=== PATIENT | female | born 1975 | race Two or more races ===

== ENCOUNTER 2025-05-17 08:50 | Inpatient (IN) | payer MEDICAID, OTHER, SELFPAY ==
[~2025-05-17] VITALS: Ht 152.4 cm; Wt 99.2 kg
[2025-05-17] VITALS (32 sets, daily range): BP systolic 104–150; BP diastolic 35–94; PULSE 79–121; RESP 13–27; TEMP 97–101.7; O2SAT 95–99
--- NOTE | 2025-05-17 09:00 | ED.PDOC ---
Altered Mental Status HPI Comments 49 y/o obese F is BIBMaureen from private residence for c/c AMS. Per EMS report, patient was found unresponsive by housemates, early, this morning, following unknown last well known time. Patient was noted to have been unresponsive to verbal or painful stimuli. She was given 2mg and 1mg of Narcan IN and IV, respectively, and placed on 15LPM nonrebreather. Patient vomited 1x after first Narcan dose. Further history is limited, due to patient's current condition and absence of family/auto body repairer fiberglass historians. Time Seen by MD: 08:50 Reviewed Notes: Nurses Notes, Chop Saw Operator Notes, Medications, Allergies Allergies: Coded Allergies: Acetaminophen (Verified Allergy, Unknown, 05/17/25) Codeine (Verified Allergy, Unknown, 05/17/25) Uncoded Allergies: TYLENOL 3 (Allergy, Mild, 04/30/10) Information Source: Patient, Emergency Med Personnel Mode of Arrival: EMS Severity: Moderate Timing: Hours Duration: Since onset Prehospital treatment: 12 Lead EKG, Accucheck, Field Map Editor, Treatment (Narcan) Past Medical History PAST MEDICAL HISTORY: Thyroid Surgical History: Unknown, Unobtainable DIVER TENDER History: Unknown, Unobtainable Family History Family History: Unknown, Unobtainable Social History Smoker: Cigarettes Alcohol: Unknown, Unobtainable Drugs: Unknown, Unobtainable Lives In: Home All Other Systems: Reviewed and Negative (Comprehensive systems review obtained and negative except for what is stated in the HPI.) Physical Exam General Appearance: Severe Distress HEENT: Normal ENT Inspection, Pharynx Normal, TMs Normal Neck: Full Range of Motion, Non-Tender, Normal, Normal Inspection Respiratory: Other (Coarse breath sounds) Cardiovascular: No Edema, No JVD, No Murmur, No Gallop, Normal Peripheral Pulses, Regular Rate/Rhythm Breast Exam: Deferred Gastrointestinal: No Organomegaly, Non Tender, No Pulsatile Mass, Normal Bowel Sounds, Soft Genitalia: Deferred Pelvic: Deferred Rectal: Deferred Extremities: No pedal edema Musculoskeletal : Apperance: Normal Neurologic: Disoriented Cerebellar Function: NOT DONE Reflexes: NOT DONE Skin: Normal Color Peripheral Pulses: 3+ Radial (R), 3+ Radial (L) Lymphatic: No Adenopathy Was a procedure done? Was a procedure done?: Yes Sedation Sedation?: Yes Informed consent obtained: Yes Sedation start time: 08:55 Sedation end time: 09:25 Sedation total time: 20 minutes Central Line Recorder of insertion practice: R Programmer Occupation of shampoo assistant: Attending Physician Indication: Volume resuscitation Room prepared for procedure: Yes R Programmer performed hand hygien: Yes Maximal sterile barrier precau: Mask/Eye shield, Sterile gown, Cap, Sterlie gloves, Large sterlie drape Skin Preparation: Chlorhexidine gluconate, Alcohol Skin preparation completely dr: Yes Insertion site: Right, Internal jugular Central line catheter type: [id number] dialysis Number of lumens: 3 Central line exchanged over a: No Antiseptic ointment applied to: No Post Assessment: Chest X-Ray, Proper placement Informed consent obtained: No Risks/benefits/alt described: No Intubation Indication: Respiratory Insufficiency, Altered Mental Status Prep: Preoxygenation Pretreated with: Analgesia, Sedation Medicated with: Vecuronium Intubation Approach: Orotracheal (8.0) Intubation size: cm (8) Informed consent obtained: No Risks/benefits/alt described: No Differential Diagnosis (ALOC) Differential Diagnosis: Dehydration, Encephalopathy, Hypoxemia, Seizure, Closed Head Injury, CVA, Drug Overdose, ETOH Intoxication X-Ray, Labs, Meds, VS Vital Signs Date Time Temp Pulse Resp B/P (MAP) Pulse Ox O2 Delivery O2 Flow Rate FiO2 05/17/25 12:53 142/88 05/17/25 12:03 164/94 05/17/25 12:00 83 05/17/25 11:22 97 26 95 50 05/17/25 10:15 97.0 108 20 116/35 97 60.0 100 97.0 05/17/25 09:33 115 20 97 100 05/17/25 09:07 116/35 05/17/25 09:06 116/35 05/17/25 08:50 97.0 110 20 113/62 97 97.0 Lab Test 05/17/25 13:10 05/17/25 12:33 05/17/25 11:50 05/17/25 10:41 Range/Units Urine Color Pending Urine Clarity Pending Urine pH Pending Urine Specific Al[place]imer Pending Urine Protein Pending Urine Ketones Pending Urine Blood Pending Urine Nitrite Pending Urine Bilirubin Pending Urine Urobilinogen Pending Urine Leukocyte Esterase Pending Urine RBC Pending Urine Microscopic WBC Pending Urine Squamous Epithelial Cells Pending Urine Bacteria Pending Urine Glucose Pending Urine Opiates Screen Pending Urine Fentanyl Screen Pending Urine Barbiturates Screen Pending Urine Phencyclidine Screen Pending Urine Amphetamines Screen Pending Urine Benzodiazepines Screen Pending Urine Cocaine Screen Pending Urine Cannabinoids Screen Pending Blood Gas Specimen Type Arterial Arterial Blood Gas Sample Site Right radial Right radial Blood Gas Patient Temperature 37.0 37.0 Arterial Blood Date Drawn [id number] Arterial Blood pH 7.240 *L 7.222 *L 7.350-7.450 Arterial Blood Partial Pressure CO2 43.8 60.9 *H 32.0-45.0 mmHg Arterial Blood Partial Pressure O2 79.4 L 191.0 H 83.0-108.0 mmHg Arterial Blood HCO3 18.3 L 24.5 21.0-28.0 mmol/L Arterial Blood Oxygen Saturation 94.4 99.1 H 94.0-98.0 % Arterial Blood Base Excess -8.8 L -4.8 L -2.0-3.0 mmol/L Arterial Blood Oxyhemoglobin 92.9 L 97.7 94.0-98.0 % Arterial Blood Carboxyhemoglobin 0.8 0.3 L 0.5-1.5 % Arterial Blood Methemoglobin 0.8 1.1 0.0-1.5 % Bulmaro Test Modified Modified Blood Gas Total Hemoglobin 18.50 *H 19.40 *H 12.0-16.0 g/dL Blood Gas Set Respiration Rate 26.0 20.0 Blood Gas Modality Vent - ac Vent - ac FiO2 % 50.0 100.0 Blood Gas Tidal Volume 400.0 400.0 Blood Gas PEEP or CPAP 5.0 5.0 Blood Gas Critical Value Read Back Yes yes Blood Gas Notified Whom arnel Garcia Blood Gas Notified Time [id number] Blood Gas Notified By Complaint Inspector rand daley rrt Lactic Acid Level 3.1 *H 0.4-2.0 mmol/L Test 05/17/25 09:34 Range/Units White Blood Count 21.6 H 4.4-10.8 10^3/uL Red Blood Count 5.76 H 4.0-5.20 10^6/uL Hemoglobin 18.2 H 12.2-16.2 g/dL Hematocrit 54.3 H 36.0-46.0 % Mean Corpuscular Volume 94.2 80.0-100.0 fL Mean Corpuscular Hemoglobin 31.5 28.0-32.0 pg Mean Corpuscular Hemoglobin Concent 33.4 32.0-36.0 g/dL Red Cell Distribution Width 13.2 11.8-14.3 % Platelet Count 362 140-450 10^3/uL Mean Platelet Volume 8.5 6.9-10.8 fL Neutrophils (%) (Auto) 87.1 H 37.0-80.0 % Lymphocytes (%) (Auto) 6.8 L 10.0-50.0 % Monocytes (%) (Auto) 5.7 0.0-12.0 % Eosinophils (%) (Auto) 0.1 0.0-7.0 % Basophils (%) (Auto) 0.3 0.0-2.0 % Neutrophils # (Auto) 18.8 H 1.6-8.6 10 ^3/uL Lymphocytes # (Auto) 1.5 0.4-5.4 10 ^3/uL Monocytes # (Auto) 1.2 0-1.3 10 ^3/uL Eosinophils # (Auto) 0 0-0.8 10 ^3/uL Basophils # (Auto) 0.1 0-0.2 10 ^3/uL Nucleated Red Blood Cells 0.2 % Prothrombin Time 11.2 9.3-11.8 sec Prothrombin Time INR 1.06 0.9-1.15 Activated Partial Thromboplast Time 25.4 24.5-34.5 SEC Sodium Level 143 136-145 mmol/L Potassium Level 4.3 3.5-5.1 mmol/L Chloride Level 109 H 98-107 mmol/L Carbon Dioxide Level 24 20-31 mmol/L Anion Gap 10 5-15 Blood Urea Nitrogen 15 9-23 mg/dL Creatinine 1.32 H 0.550-1.02 mg/dL Glomerular Filtration Rate Calc 50 >90 mL/min BUN/Creatinine Ratio 11.4 10.0-20.0 Serum Glucose 244 H 74-106 mg/dL Lactic Acid Level 2.2 *H 0.4-2.0 mmol/L Calcium Level 9.8 8.7-10.4 mg/dL Total Bilirubin 0.5 0.2-1.0 mg/dL Aspartate Amino Transferase (AST) 60 H 13-40 U/L Alanine Aminotransferase (ALT) 75 H 7-40 U/L Alkaline Phosphatase 246 H 46-116 U/L Total Protein 9.0 H 5.7-8.2 g/dL Albumin 5.4 H 3.2-4.8 g/dL Current Medications Medications (Trade) Dose Ordered Sig/Hannah Route Start Time Stop Time Status Last Admin Sodium Chloride 1,000 ml @ 1,000 mls/hr Q1H ONCE IV 05/17/25 09:00 05/17/25 10:00 DC 05/17/25 10:40 Sodium Chloride 1,000 ml @ 150 mls/hr Q6H40M ONCE IV 05/17/25 09:00 05/17/25 15:39 05/17/25 12:41 Flumazenil (Romazicon Injection) 0.2 mg ONCE ONCE IV 05/17/25 09:15 05/17/25 09:16 DC 05/17/25 09:16 Rocuronium Helotes 100 mg ONCE ONCE IV 05/17/25 09:30 05/17/25 09:31 DC 05/17/25 09:06 Etomidate 20 mg ONCE ONCE IV 05/17/25 09:30 05/17/25 09:31 DC 05/17/25 09:06 Midazolam HCl 50 ml @ 1 mls/hr Q24H IV 05/17/25 09:30 05/17/25 12:53 Cefepime HCl 50 ml @ 50 mls/hr ONCE ONCE IV 05/17/25 09:30 05/17/25 10:29 DC 05/17/25 10:40 Clindamycin Phosphate 50 ml @ 50 mls/hr ONCE ONCE IV 05/17/25 10:15 05/17/25 11:14 DC 05/17/25 12:39 Sodium Chloride 1,000 ml @ 1,000 mls/hr Q1H ONCE IV 05/17/25 13:00 05/17/25 13:59 05/17/25 13:03 Patient altered. Was given Narcan in the field. On oxygen. Unable to respond with sternal rub. Had to intubate the patient. Possible aspiration. Was given cefepime. Was given clindamycin. Placed a central line. Was given fluids. Was given fluids. Continue monitoring. Time of 1ST Reevaluation: 09:20 Reevaluation 1ST: Unchanged Patient Education/Counseling: Pt Unresponsive (Patient intubated) Family Education/Counseling: No Family Present SEPSIS Sepsis Screen Physician Orders Urinalysis (05/17/25 08:58) Chest Portable (05/17/25 08:58) Accucheck (05/17/25 08:58) Blood Culture (05/17/25 08:58) Cefepime 1gm/ 50ml (Maxipime 1gm/50ml) (05/17/25 22:00) Notify Md If Map <65 Or Bp<90 (05/17/25 08:58) If Map<65 Start Vasopressor (05/17/25 08:58) Sepsis Reassesment After Fluid (05/17/25 09:58) Sodium Chloride 0.9% (05/17/25 09:00) Head Without Contrast (05/17/25 09:00) Midazolam Drip 50 Mg/50ml (Versed Drip 5 (05/17/25 09:30) Rass Sedation Scale Q1HR (05/17/25 09:23) Communication Order (05/17/25 09:12) Abg W/ Co-Ox (05/17/25 10:30) Respiratory Culture W/ Gs (05/17/25 09:39) Ventilator Orders (05/17/25 09:39) * Urology Consult (05/17/25 10:26) Bladder (05/17/25 10:24) Ventilator Orders (05/17/25 10:46) Ct Ab Pel Wo Con-No Oral Or Iv (05/17/25 11:00) Continous Bladder Irrigation (05/17/25 12:01) [address] Crespo QSHIFT (05/17/25 12:01) Urine Bacterial Culture (05/17/25 12:12) Abg W/ Co-Ox (05/17/25 12:13) Drug Screen (05/17/25 12:27) Propofol (Diprivan) (05/17/25 13:00) Sodium Chloride 0.9% (05/17/25 13:00) Vital Signs Date Time Temp Pulse Resp B/P (MAP) Pulse Ox O2 Delivery O2 Flow Rate FiO2 05/17/25 12:53 142/88 05/17/25 12:03 164/94 05/17/25 12:00 83 05/17/25 11:22 97 26 95 50 05/17/25 10:15 97.0 108 20 116/35 97 60.0 100 97.0 05/17/25 09:33 115 20 97 100 05/17/25 09:07 116/35 05/17/25 09:06 116/35 05/17/25 08:50 97.0 110 20 113/62 97 97.0 Laboratory Tests Test 05/17/25 09:34 05/17/25 11:50 Lactic Acid Level 2.2 mmol/L (0.4-2.0) *H 3.1 mmol/L (0.4-2.0) *H White Blood Count 21.6 10^3/uL (4.4-10.8) H Medications Medications Dose Ordered Sig/Hannah Route Start Time Stop Time Status Last Admin Dose Admin Cefepime HCl 50 ml @ 50 mls/hr ONCE ONCE IV 05/17/25 09:30 05/17/25 10:29 DC 05/17/25 10:40 Clindamycin Phosphate 50 ml @ 50 mls/hr ONCE ONCE IV 05/17/25 10:15 05/17/25 11:14 DC 05/17/25 12:39 Etomidate 20 mg ONCE ONCE IV 05/17/25 09:30 05/17/25 09:31 DC 05/17/25 09:06 Flumazenil 0.2 mg ONCE ONCE IV 05/17/25 09:15 05/17/25 09:16 DC 05/17/25 09:16 Midazolam HCl 50 ml @ 1 mls/hr Q24H IV 05/17/25 09:30 05/17/25 12:53 Rocuronium Helotes 100 mg ONCE ONCE IV 05/17/25 09:30 05/17/25 09:31 DC 05/17/25 09:06 Sodium Chloride 1,000 ml @ 150 mls/hr Q6H40M ONCE IV 05/17/25 09:00 05/17/25 15:39 05/17/25 12:41 Sodium Chloride 1,000 ml @ 1,000 mls/hr Q1H ONCE IV 05/17/25 09:00 05/17/25 10:00 DC 05/17/25 10:40 Sodium Chloride 1,000 ml @ 1,000 mls/hr Q1H ONCE IV 05/17/25 13:00 05/17/25 13:59 05/17/25 13:03 Departure 1 Departure Time of Disposition: 09:05 Impression: Primary Impression: Metabolic encephalopathy Additional Impressions: Pneumonia Qualified Codes: J18.9 - Pneumonia, unspecified organism Sepsis Qualified Codes: A41.9 - Sepsis, unspecified organism Disposition: ADMITTED INPATIENT Admit to: ICU Condition: Guarded Critical Care Note Critical Care Time?: Yes (90 min-critical care time only) Stability Stability form required: No Heart Score Heart Score: Heart Score Response (Comments) Value History N/A 0 EKG N/A 0 Age N/A 0 Risk Factors N/A 0 Troponin N/A 0 Total 0 I personally scribed for BILL HUNTER MD ([email or web address]) on 05/17/25 at 09:00. Electronically submitted by Efe Sanhcez ([email or web address]). I personally scribed for BILL HUNTER MD ([email or web address]) on 05/17/25 at 09:41. Electronically submitted by Efe Sanchez ([email or web address]). BILL HUNTER MD May 17, 2025 09:00
[2025-05-17] MEDS: ROCURONIUM 10MG/ML 10ML VIAL IV ONE (09:06)
[2025-05-17] MEDS: ETOMIDATE (2MG/ML) 20ML VIAL IV ONE (09:06)
[2025-05-17] MEDS: MIDAZOLAM DRIP 50 mg/50mL 50 ML IV SCH (09:07)
[2025-05-17] MEDS: FLUMAZENIL 0.1 MG/ML INJ 10ML MDV IV ONE (09:16)
[2025-05-17 10:04] LABS: Hematocrit 54.3 % (36.0-46.0); Hemoglobin 18.2 g/dL (12.2-16.2); Mean Corpuscular Hemoglobin 31.5 pg (28.0-32.0); Mean Corpuscular Volume 94.2 fL (80.0-100.0); Nucleated Red Blood Cells % 0.2 %
[2025-05-17 10:14] LABS: Anion Gap 10 (5-15); BUN/Creatinine Ratio 11.4 (10.0-20.0); Blood Urea Nitrogen 15 mg/dL (9-23); Calcium 9.8 mg/dL (8.7-10.4); Carbon Dioxide 24 mmol/L (20-31); Potassium 4.3 mmol/L (3.5-5.1); Sodium 143 mmol/L (136-145)
[2025-05-17 10:15] LABS: Alanine Aminotransferase 75 U/L (7-40); Albumin 5.4 g/dL (3.2-4.8); Alkaline Phosphatase 246 U/L (46-116); Bilirubin, Total 0.5 mg/dL (0.2-1.0); Chloride 109 mmol/L (98-107); Glucose 244 mg/dL (74-106); Total Protein 9.0 g/dL (5.7-8.2)
[2025-05-17 10:21] LABS: Lactic Acid w/Reflex 2.2 mmol/L (0.4-2.0)
[2025-05-17 10:23] LABS: INR 1.06 (0.9-1.15); Partial Thromboplastin Time 25.4 SEC (24.5-34.5); Prothrombin Time 11.2 sec (9.3-11.8)
--- NOTE | 2025-05-17 10:28 | DVHNC2 ---
Procedure - Central Line Procedure Note Date and time: 05/17/2025 Indication: Vascular Access Central Line Location: Right Internal Jugular Vein Procedure Transportation Technician: Anel Ren, Resident Attending Physician: Dr. Wheatley Consent: The procedure was performed emergently and the permission was implied because of the emergent nature. Procedure Summary: A time out was performed. My hands were washed immediately prior to the procedure. I wore a surgical cap, mask with protective eyewear, full gown and sterile gloves throughout the procedure. The patient was placed in Trendelenburg position, with head turned 30 degrees away from the insertion site. The Right neck was prepped using chlorhexidine scrub and draped in sterile fashion using a three quarter sheet drape and sterile towels. Skin preparation was allowed to dry prior to skin puncture. Anatomic landmarks were identified. Anesthesia was achieved over the vein using 5] ml of 1% lidocaine. Using real-time ultrasound, with sterile probe cover and sterile gel, the Right Internal Jugular Vein was identified on ultrasound using the linear ultrasound probe in the transverse orientation. The carotid o artery was identified and avoided utilizing color- flow. The Internal Jugular Vein was then placed in the center of the ultrasound field and compressed for patency. The introducer needle was inserted into the vein under direct ultrasound visualization, and a movement artifact was identified as the needle was advanced through the skin toward the vessel. A real-time hyperechoic signal revealed visualization of vascular needle entry into the lumen as blood was noted to flashback in the syringe. The needle was then held in place, the syringe was removed, and the guide wire was advanced through the needle. Direct visualization of the guide wire location within the vein was noted on ultrasound, indicating proper placement. The needle was then removed. A small incision was made at the skin surface with a scalpel, and a skin dilator was advanced over the guide wire. After appropriate dilation was obtained, the dilator was removed, and a triple-lumen catheter was then advanced over the guide wire into proper position. The guide wire was removed and discarded. The ports were aspirated, which showed good blood return, and then carefully flushed with normal saline. The catheter was stabilized and sutured to the skin with 2-0 silk at two anchor points. A sterile op-site was placed over the catheter and biopatch. The patient tolerated the procedure without any hemodynamic compromise. Estimated blood loss: 5 ml Post-procedure chest x-ray: Shows proper positioning of the catheter for use. ANEL REN RESDIENT May 17, 2025 10:28
--- NOTE | 2025-05-17 10:38 | DVH ---
EXAM: XY CHEST PORTABLE Indication: sob Technique: Single frontal view of the chest was obtained Comparison: None FINDINGS: Lines and Tubes: Endotracheal tube projects 2 cm above the hilario. Enteric tube tip projects over exp ected region stomach. Right internal jugular central venous catheter tip projects over superior vena cava. Lungs: No focal consolidation. Pleura: No effusion. No pneumothorax. Cardiomediastinal contours: Unremarkable Bones: No acute osseous abnormality. IMPRESSION: Lines and tubes in appropriate position.
[2025-05-17] MEDS: SODIUM CHLORIDE 0.9% 1,000 ML IV ONE ×4 (10:40→17:45)
[2025-05-17] MEDS: CEFEPIME 1GM/50ML 50 ML IV ONE (10:40)
--- NOTE | 2025-05-17 11:05 | DVH ---
Exam: US BLADDER History: bladderforpositionofbladder Comparison: None Date: 05/17/2025 10:41 AM Technique: Grayscale and color Doppler ultrasound of the pelvis was obtained. Pre-and postvoid images of the bladder were obtained. Findings: Crespo catheter appears within the bladder IMPRESSION: Crespo catheter noted within the bladder END IMPRESSION:
--- NOTE | 2025-05-17 11:37 | DVH ---
EXAM: CT HEAD WITHOUT CONTRAST INDICATION: altered TECHNIQUE: CT of the head without intravenous contrast. Coronal and sagittal reformatted images are s ubmitted. Radiation Dose : 1. Head: CT Dose: CTDI volume is 53.48 mGy. Dose-length product is 966.11 mGy*cm The dose indicators for CT are the volume Computed Tomography (CT) Dose Index (CTDIvol) and the Dose Length Product (DLP), and are measured in units of mGy and mGy-cm, respectively. These indicators are not patient dose, but values generated from the CT scanner acquisition factors. The report includes radiation exposure data for exposures received during this examination. All CT scans at this medical facility are performed using dose modulation techniques as appropriate to a performed exam including the following: Automated exposure control was utilized; adjustment of the MA and/or KV according to patient size; and use of iterative reconstruction technique. COMPARISON: None FINDINGS: There is no evidence of acute intracranial hemorrhage, extra-axial collection, mass effect, midline s hift, herniation or hydrocephalus. The ventricles, sulci and cisterns are age appropriate. The waite-white differentiation is intact. Mastoid air cells are clear. Mucosal thickening in the right maxillary sinus. No depressed calvarial fracture. The surrounding soft tissues are unremarkable. IMPRESSION: 1. No evidence of acute intracranial abnormality.
[2025-05-17 12:01] LABS: Base Excess -4.8 mmol/L (-2.0-3.0)
--- NOTE | 2025-05-17 12:12 | DVHINCON2 ---
Date of service: May 17, 2025 Referring Physician ER Reason for Consultation Gross hematuria History of Present Illness 49 y/o obese F is BIBA from private residence for c/c AMS. She is intubated. Crespo placed with lexie bloody urine reported. CT scan shows nonobstructive left renal stone. Per EMS report, patient was found unresponsive by housemates, early, this morning, following unknown last well known time. Patient was noted to have been unresponsive to verbal or painful stimuli. She was given 2mg and 1mg of Narcan IN and IV, respectively, and placed on 15LPM nonrebreather. Patient vomited 1x after first Narcan dose. Further history is limited, due to patient's current condition and absence of family/gas welder historians. Reviewed Notes: Nurses Notes, Family Law Legal Assistant Notes, Medications, Allergies Allergies: Coded Allergies: Acetaminophen (Verified Allergy, Unknown, 05/17/25) Codeine (Verified Allergy, Unknown, 05/17/25) Uncoded Allergies: TYLENOL 3 (Allergy, Mild, 04/30/10) Information Source: Patient, Emergency Med Personnel Mode of Arrival: EMS Severity: Moderate Timing: Hours Duration: Since onset Prehospital treatment: 12 Lead EKG, Accucheck, Float Builder, Treatment (Narcan) Past Medical History Thyroid Social History Smoker: Cigarettes Alcohol: Unknown, Unobtainable Drugs: Unknown, Unobtainable Lives In: Home Allergies: Coded Allergies: Acetaminophen (Verified Allergy, Unknown, 05/17/25) Codeine (Verified Allergy, Unknown, 05/17/25) Uncoded Allergies: TYLENOL 3 (Allergy, Mild, 04/30/10) Current Medications Current Medications Medications (Trade) Dose Ordered Sig/Hannah Route PRN Reason Start Time Stop Time Status Last Admin Cefepime HCl 50 ml @ 12.5 mls/hr Q12HR IV 05/17/25 22:00 Midazolam HCl 50 ml @ 1 mls/hr Q24H IV 05/17/25 09:30 05/17/25 09:07 Review of Systems All Other Systems: Reviewed and Negative (Comprehensive systems review obtained and negative except for what is stated in the HPI.) Vital Signs Vital Signs Date Time Temp Pulse Resp B/P (MAP) Pulse Ox O2 Delivery O2 Flow Rate FiO2 05/17/25 11:22 97 26 95 50 05/17/25 10:15 97.0 60.0 97.0 Physical Exam General Appearance: Intubated HEENT: Normal ENT Inspection, Pharynx Normal, TMs Normal Neck: Full Range of Motion, Non-Tender, Normal, Normal Inspection Respiratory: Other (Coarse breath sounds) Cardiovascular: No Edema, No JVD, No Murmur, No Gallop, Normal Peripheral Pulses, Regular Rate/Rhythm Breast Exam: Deferred Gastrointestinal: No Organomegaly, Non Tender, No Pulsatile Mass, Normal Bowel Sounds, Soft Genitalia: Crespo in place with hematuria Pelvic: Deferred Rectal: Deferred Extremities: No pedal edema Musculoskeletal : Apperance: Normal Neurologic: Disoriented Cerebellar Function: NOT DONE Reflexes: NOT DONE Skin: Normal Color Peripheral Pulses: 3+ Radial (R), 3+ Radial (L) Lymphatic: No Adenopathy Labs/Diagnostic Data Labs Test 05/17/25 11:50 05/17/25 10:41 05/17/25 09:34 Range/Units Blood Gas Specimen Type Arterial Blood Gas Sample Site Right radial Blood Gas Patient Temperature 37.0 Arterial Blood Date Drawn [id number] Arterial Blood pH 7.222 *L 7.350-7.450 Arterial Blood Partial Pressure CO2 60.9 *H 32.0-45.0 mmHg Arterial Blood Partial Pressure O2 191.0 H 83.0-108.0 mmHg Arterial Blood HCO3 24.5 21.0-28.0 mmol/L Arterial Blood Oxygen Saturation 99.1 H 94.0-98.0 % Arterial Blood Base Excess -4.8 L -2.0-3.0 mmol/L Arterial Blood Oxyhemoglobin 97.7 94.0-98.0 % Arterial Blood Carboxyhemoglobin 0.3 L 0.5-1.5 % Arterial Blood Methemoglobin 1.1 0.0-1.5 % Bulmaro Test Modified Blood Gas Total Hemoglobin 19.40 *H 12.0-16.0 g/dL Blood Gas Set Respiration Rate 20.0 Blood Gas Modality Vent - ac FiO2 % 100.0 Blood Gas Tidal Volume 400.0 Blood Gas PEEP or CPAP 5.0 Blood Gas Critical Value Read Back yes Blood Gas Notified Whom Blood Gas Notified Time [id number] Blood Gas Notified By tool honing machine set up operator andrae White Blood Count 21.6 H 4.4-10.8 10^3/uL Red Blood Count 5.76 H 4.0-5.20 10^6/uL Hemoglobin 18.2 H 12.2-16.2 g/dL Hematocrit 54.3 H 36.0-46.0 % Mean Corpuscular Volume 94.2 80.0-100.0 fL Mean Corpuscular Hemoglobin 31.5 28.0-32.0 pg Mean Corpuscular Hemoglobin Concent 33.4 32.0-36.0 g/dL Red Cell Distribution Width 13.2 11.8-14.3 % Platelet Count 362 140-450 10^3/uL Mean Platelet Volume 8.5 6.9-10.8 fL Neutrophils (%) (Auto) 87.1 H 37.0-80.0 % Lymphocytes (%) (Auto) 6.8 L 10.0-50.0 % Monocytes (%) (Auto) 5.7 0.0-12.0 % Eosinophils (%) (Auto) 0.1 0.0-7.0 % Basophils (%) (Auto) 0.3 0.0-2.0 % Neutrophils # (Auto) 18.8 H 1.6-8.6 10 ^3/uL Lymphocytes # (Auto) 1.5 0.4-5.4 10 ^3/uL Monocytes # (Auto) 1.2 0-1.3 10 ^3/uL Eosinophils # (Auto) 0 0-0.8 10 ^3/uL Basophils # (Auto) 0.1 0-0.2 10 ^3/uL Nucleated Red Blood Cells 0.2 % Prothrombin Time 11.2 9.3-11.8 sec Prothrombin Time INR 1.06 0.9-1.15 Activated Partial Thromboplast Time 25.4 24.5-34.5 SEC Sodium Level 143 136-145 mmol/L Potassium Level 4.3 3.5-5.1 mmol/L Chloride Level 109 H 98-107 mmol/L Carbon Dioxide Level 24 20-31 mmol/L Anion Gap 10 5-15 Blood Urea Nitrogen 15 9-23 mg/dL Creatinine 1.32 H 0.550-1.02 mg/dL Glomerular Filtration Rate Calc 50 >90 mL/min BUN/Creatinine Ratio 11.4 10.0-20.0 Serum Glucose 244 H 74-106 mg/dL Calcium Level 9.8 8.7-10.4 mg/dL Total Bilirubin 0.5 0.2-1.0 mg/dL Aspartate Amino Transferase (AST) 60 H 13-40 U/L Alanine Aminotransferase (ALT) 75 H 7-40 U/L Alkaline Phosphatase 246 H 46-116 U/L Total Protein 9.0 H 5.7-8.2 g/dL Albumin 5.4 H 3.2-4.8 g/dL Assessment Gross hematuria Left renal stone, nonobstructing Plan/Recommendation [address] Crespo for CBI Plan discussed with: Other (Spoke with Dr. Wheatley) JARAD BELTRAN MD May 17, 2025 12:12
--- NOTE | 2025-05-17 12:19 | DVH ---
EXAM: CT CT AB PEL WO CON-NO ORAL OR IV INDICATION: hematuria TECHNIQUE: Volumetric multidetector CT images of the abdomen and pelvis were obtained without contras t. All CT scans at this facility use dose modulation, iterative reconstruction, and/or weight based d osing when appropriate to reduce radiation dose to as low as reasonably achievable. COMPARISON: None FINDINGS: [LOWER CHEST]: 3 consolidation versus complete collapse of the left lower lobe. Centrilobular incons picuous pulmonary nodules in the lingula. [LIVER]: Question inconspicuous hepatic steatosis [GALLBLADDER AND BILIARY TREE]: Gallbladder is decompressed. [SPLEEN]: Unremarkable. [PANCREAS]: Unremarkable. [ADRENAL GLANDS]: Unremarkable [KIDNEYS]: No hydronephrosis. Curvilinear calcification of the left renal calices. [BLADDER]: Crespo catheter in place. Inflammatory stranding along the anterior superior margin of the bladder. [REPRODUCTIVE ORGANS]: Unremarkable. [BOWEL/MESENTERY]: Nasogastric tube in place. No CT evidence of bowel obstruction. Normal appendix. S uspected wire versus tubing in the lower rectum. [ASCITES]: Absent [LYMPHADENOPATHY]: No pathologically enlarged lymph nodes by CT size criteria [VASCULATURE]: No aneurysmal dilatation. [ABDOMINAL WALL]: Unremarkable. [MUSCULOSKELETAL]: No acute fracture or aggressive focal osseous lesion. IMPRESSION: 1. No hydronephrosis. Nonobstructive curvilinear left renal caliceal stone. 2. Crespo catheter decompression of the bladder with anterior superior extraperitoneal inflammatory st randing of indeterminate significance. 3. Collapse/consolidation of the left lower lobe with the adjacent lingular pulmonary nodules correla te for infection.
[2025-05-17] MEDS: CLINDAMYCIN 300MG IV 50 ML IV ONE (12:39)
[2025-05-17 12:41] LABS: Base Excess -8.8 mmol/L (-2.0-3.0)
[2025-05-17 13:51] LABS: Urine Protein, UAD 2+ (Negative)
[2025-05-17] MEDS: PROPOFOL 100 ML IV SCH (14:08)
[2025-05-17 14:23] LABS: Amphetamine Screen, Urine Pos (NEGATIVE); Barbiturate Scree,Urine Neg (NEGATIVE); Benzodiazephine Screen, Urine Pos (NEGATIVE); Cannabinoid Screen, Urine Neg (NEGATIVE); Cocaine Screen, Urine Neg (NEGATIVE); Opiate Scree,Urine Neg (NEGATIVE); Phencyclidine Screen, Urine Neg (NEGATIVE)
[2025-05-17] MEDS: ACETAMINOPHEN IV 1000 MG/100ML (10MG/ML) IV ONE (14:57)
[2025-05-17] MEDS: IBUPROFEN 800 MG TAB PO ONE (15:19)
[2025-05-17] MEDS ORDERED: NITROGLYCERIN 0.4 MG SL TAB SL PRN (15:30)
[2025-05-17] MEDS ORDERED: MORPHINE SULFATE INJ 2 MG/ml SYRG IV PRN (15:30)
[2025-05-17] MEDS ORDERED: ONDANSETRON HCL 4 MG/2 ML VIAL IV PRN (15:30)
--- NOTE | 2025-05-17 16:04 | DVHHP2 ---
History of Present Illness Reason for Visit: ALOC History of Present Illness Meryl Johnson is a 49-year-old female with unclear plast medical history, who was brought to the hospital by EMS after being found down. Patient was found unresponsive by roommates, with an unknown amount of down time. She was given Narcan by EMS with no response. On arrival to ER she was not responsive to verbal or painful stimuli. Patient was intubated shortly after arrival. A Crespo catheter was placed by ER and gross blood drained. Urology was consulted and CBI was initiated. Endocrine: Diabetes Past Surgical History unable to obtain Past Social History unable to obtain Review of Systems Review of Systems unable to obtain, patient intubated and sedated Allergies: Coded Allergies: Acetaminophen (Verified Allergy, Unknown, 05/17/25) Codeine (Verified Allergy, Unknown, 05/17/25) Uncoded Allergies: TYLENOL 3 (Allergy, Mild, 04/30/10) Medications Current Medications Medications Dose Ordered Sig/Hannah Route Start Time Stop Time Status Last Admin Dose Admin Cefepime HCl 50 ml @ 12.5 mls/hr Q12HR IV 05/17/25 22:00 Midazolam HCl 50 ml @ 1 mls/hr Q24H IV 05/17/25 09:30 05/17/25 12:53 6 MLS/HR Propofol 100 ml @ 2.319 mls/ hr Q24H IV 05/17/25 13:00 05/17/25 14:08 2.319 MLS/HR Ondansetron HCl 4 mg Q4HP PRN IV 05/17/25 15:30 UNV Docusate Sodium 100 mg BIDPRN PRN PO 05/17/25 15:30 UNV Nitroglycerin 0.4 mg Q5MINP PRN SL 05/17/25 15:30 UNV Morphine Sulfate 2 mg Q30M PRN IV 05/17/25 15:30 UNV Exam Vital Signs Vital Signs Date Time Temp Pulse Resp B/P (MAP) Pulse Ox O2 Delivery O2 Flow Rate FiO2 05/17/25 15:19 102.4 05/17/25 14:27 121 29 95 40 05/17/25 10:15 60.0 05/17/25 09:30 Mechanical Ventilator+ General Appearance: Other (Intubated and sedated, febrile) HEENT: Atraumatic, PERRLA, Other (Mucous membr dry) Cardiovascular: Normal S1, Normal S2, Other (ST) Abdominal: Normal bowel sounds, Soft Extremities: No clubbing, No cyanosis, No edema, Normal pulses Skin: No rashes, No breakdown, No significant lesion Neuro: Other (Intubated and sedated) Labs/Xrays Labs Test 05/17/25 13:10 05/17/25 12:33 05/17/25 11:50 05/17/25 09:37 Range/Units Urine Color Red H Yellow Urine Clarity Ex.turbid Clear Urine pH 6.0 5.0-9.0 Urine Specific Woodman 1.015 1.001-1.035 Urine Protein 2+ H Negative Urine Ketones Negative Negative Urine Blood 3+ H Negative /uL Urine Nitrite Negative Negative Urine Bilirubin Negative Negative Urine Urobilinogen Normal Negative mg/dL Urine Leukocyte Esterase 3+ Negative /uL Urine RBC 58409 0 - 4 /hpf Urine Microscopic WBC 1039 H 0-5 /HPF Urine Squamous Epithelial Cells None seen <5 /hpf Urine Bacteria None seen None Seen /hpf Urine Mucus Few None Seen Urine Glucose 1+ H Normal mg/dL Urine Opiates Screen Neg NEGATIVE Urine Fentanyl Screen Neg NEGATIVE Urine Barbiturates Screen Neg NEGATIVE Urine Phencyclidine Screen Neg NEGATIVE Urine Amphetamines Screen Pos NEGATIVE Urine Benzodiazepines Screen Pos NEGATIVE Urine Cocaine Screen Neg NEGATIVE Urine Cannabinoids Screen Neg NEGATIVE Blood Gas Specimen Type Arterial Blood Gas Sample Site Right radial Blood Gas Patient Temperature 37.0 Arterial Blood Date Drawn [id number] Arterial Blood pH 7.240 *L 7.350-7.450 Arterial Blood Partial Pressure CO2 43.8 32.0-45.0 mmHg Arterial Blood Partial Pressure O2 79.4 L 83.0-108.0 mmHg Arterial Blood HCO3 18.3 L 21.0-28.0 mmol/L Arterial Blood Oxygen Saturation 94.4 94.0-98.0 % Arterial Blood Base Excess -8.8 L -2.0-3.0 mmol/L Arterial Blood Oxyhemoglobin 92.9 L 94.0-98.0 % Arterial Blood Carboxyhemoglobin 0.8 0.5-1.5 % Arterial Blood Methemoglobin 0.8 0.0-1.5 % Bulmaro Test Modified Blood Gas Total Hemoglobin 18.50 *H 12.0-16.0 g/dL Blood Gas Set Respiration Rate 26.0 Blood Gas Modality Vent - ac FiO2 % 50.0 Blood Gas Tidal Volume 400.0 Blood Gas PEEP or CPAP 5.0 Blood Gas Critical Value Read Back Yes Blood Gas Notified Whom arnel Garcia Blood Gas Notified Time [id number] Blood Gas Notified By Molecular Geneticist rand daley Lactic Acid Level 3.1 *H 0.4-2.0 mmol/L Creatine Kinase 795 H 34-145 U/L Test 05/17/25 09:34 Range/Units White Blood Count 21.6 H 4.4-10.8 10^3/uL Red Blood Count 5.76 H 4.0-5.20 10^6/uL Hemoglobin 18.2 H 12.2-16.2 g/dL Hematocrit 54.3 H 36.0-46.0 % Mean Corpuscular Volume 94.2 80.0-100.0 fL Mean Corpuscular Hemoglobin 31.5 28.0-32.0 pg Mean Corpuscular Hemoglobin Concent 33.4 32.0-36.0 g/dL Red Cell Distribution Width 13.2 11.8-14.3 % Platelet Count 362 140-450 10^3/uL Mean Platelet Volume 8.5 6.9-10.8 fL Neutrophils (%) (Auto) 87.1 H 37.0-80.0 % Lymphocytes (%) (Auto) 6.8 L 10.0-50.0 % Monocytes (%) (Auto) 5.7 0.0-12.0 % Eosinophils (%) (Auto) 0.1 0.0-7.0 % Basophils (%) (Auto) 0.3 0.0-2.0 % Neutrophils # (Auto) 18.8 H 1.6-8.6 10 ^3/uL Lymphocytes # (Auto) 1.5 0.4-5.4 10 ^3/uL Monocytes # (Auto) 1.2 0-1.3 10 ^3/uL Eosinophils # (Auto) 0 0-0.8 10 ^3/uL Basophils # (Auto) 0.1 0-0.2 10 ^3/uL Nucleated Red Blood Cells 0.2 % Prothrombin Time 11.2 9.3-11.8 sec Prothrombin Time INR 1.06 0.9-1.15 Activated Partial Thromboplast Time 25.4 24.5-34.5 SEC Sodium Level 143 136-145 mmol/L Potassium Level 4.3 3.5-5.1 mmol/L Chloride Level 109 H 98-107 mmol/L Carbon Dioxide Level 24 20-31 mmol/L Anion Gap 10 5-15 Blood Urea Nitrogen 15 9-23 mg/dL Creatinine 1.32 H 0.550-1.02 mg/dL Glomerular Filtration Rate Calc 50 >90 mL/min BUN/Creatinine Ratio 11.4 10.0-20.0 Serum Glucose 244 H 74-106 mg/dL Calcium Level 9.8 8.7-10.4 mg/dL Total Bilirubin 0.5 0.2-1.0 mg/dL Aspartate Amino Transferase (AST) 60 H 13-40 U/L Alanine Aminotransferase (ALT) 75 H 7-40 U/L Alkaline Phosphatase 246 H 46-116 U/L Total Protein 9.0 H 5.7-8.2 g/dL Albumin 5.4 H 3.2-4.8 g/dL EXAM: XY CHEST PORTABLE FINDINGS: Lines and Tubes: Endotracheal tube projects 2 cm above the hilario. Enteric tube tip projects over expected region stomach. Right internal jugular central venous catheter tip projects over superior vena cava. Lungs: No focal consolidation. Pleura: No effusion. No pneumothorax. Cardiomediastinal contours: Unremarkable Bones: No acute osseous abnormality. IMPRESSION: Lines and tubes in appropriate position. EXAM: CT HEAD WITHOUT CONTRAST FINDINGS: There is no evidence of acute intracranial hemorrhage, extra-axial collection, mass effect, midline shift, herniation or hydrocephalus. The ventricles, sulci and cisterns are age appropriate. The waite-white differentiation is intact. Mastoid air cells are clear. Mucosal thickening in the right maxillary sinus. No depressed calvarial fracture. The surrounding soft tissues are unremarkable. IMPRESSION: 1. No evidence of acute intracranial abnormality. Exam: US BLADDER Findings: Crespo catheter appears within the bladder IMPRESSION: Crespo catheter noted within the bladder EXAM: CT CT AB PEL WO CON-NO ORAL OR IV FINDINGS: [LOWER CHEST]: 3 consolidation versus complete collapse of the left lower lobe. Centrilobular inconspicuous pulmonary nodules in the lingula. [LIVER]: Question inconspicuous hepatic steatosis [GALLBLADDER AND BILIARY TREE]: Gallbladder is decompressed. [SPLEEN]: Unremarkable. [PANCREAS]: Unremarkable. [ADRENAL GLANDS]: Unremarkable [KIDNEYS]: No hydronephrosis. Curvilinear calcification of the left renal calices. [BLADDER]: Crespo catheter in place. Inflammatory stranding along the anterior superior margin of the bladder. [REPRODUCTIVE ORGANS]: Unremarkable. [BOWEL/MESENTERY]: Nasogastric tube in place. No CT evidence of bowel obstruction. Normal appendix. Suspected wire versus tubing in the lower rectum. [ASCITES]: Absent [LYMPHADENOPATHY]: No pathologically enlarged lymph nodes by CT size criteria [VASCULATURE]: No aneurysmal dilatation. [ABDOMINAL WALL]: Unremarkable. [MUSCULOSKELETAL]: No acute fracture or aggressive focal osseous lesion. IMPRESSION: 1. No hydronephrosis. Nonobstructive curvilinear left renal caliceal stone. 2. Crespo catheter decompression of the bladder with anterior superior extraperitoneal inflammatory stranding of indeterminate significance. 3. Collapse/consolidation of the left lower lobe with the adjacent lingular pulmonary nodules correlate for infection. SEPSIS Sepsis Screen Date sepsis recognized/suspect: May 17, 2025 Time Sepsis recognized/suspect: 08 Recent Procedure: No On Antibiotic Therapy: No Respiratory Rate >20: No Heart Rate >90: Yes Temp<36 C (96.8 F) or >38.3 C: No SBP <90 or MAP <65 mmHG: No New Acute Mental Status Change: No Is the patient on CPAP, BIPAP,: No Physician Orders Chest Portable (05/17/25 08:58) Accucheck (05/17/25 08:58) Blood Culture (05/17/25 08:58) Cefepime 1gm/ 50ml (Maxipime 1gm/50ml) (05/17/25 22:00) Notify Md If Map <65 Or Bp<90 (05/17/25 08:58) If Map<65 Start Vasopressor (05/17/25 08:58) Sepsis Reassesment After Fluid (05/17/25 09:58) Head Without Contrast (05/17/25 09:00) Midazolam Drip 50 Mg/50ml (Versed Drip 5 (05/17/25 09:30) Rass Sedation Scale Q1HR (05/17/25 09:23) Communication Order (05/17/25 09:12) Abg W/ Co-Ox (05/17/25 10:30) Respiratory Culture W/ Gs (05/17/25 09:39) Ventilator Orders (05/17/25 09:39) * Urology Consult (05/17/25 10:26) Bladder (05/17/25 10:24) Ventilator Orders (05/17/25 10:46) Ct Ab Pel Wo Con-No Oral Or Iv (05/17/25 11:00) Continous Bladder Irrigation (05/17/25 12:01) [address] Crespo QSHIFT (05/17/25 12:01) Urine Bacterial Culture (05/17/25 12:12) Abg W/ Co-Ox (05/17/25 12:13) Propofol (Diprivan) (05/17/25 13:00) Admit (05/17/25 15:27) Code Status (05/17/25 15:27) Ondansetron Hcl (Zofran) (05/17/25 15:30) Docusate Sodium Capsule (Colace Capsule) (05/17/25 15:30) Complete Blood Count (05/18/25 04:00) Comprehensive Metabolic Panel (05/18/25 04:00) Npo (Nothing By Mouth) Diet (05/17/25 Dinner) Echo 2d Mode Cardiac Dop (05/17/25 15:27) Condition: Critical (05/17/25 15:27) Nitroglycerin Sublingual (Ntrostat Subli (05/17/25 15:30) Morphine Sulfate Injection (05/17/25 15:30) Stat Ekg For Chest Pain (05/17/25 15:27) Notify Md Of Changes From Base (05/17/25 15:27) Steam Shovel Operating Engineer For 24 Hours (05/17/25 15:27) Emergency Dysrhythmia Protocol (05/17/25 15:27) Rhythm Strips Once Every Shift (05/17/25 15:27) Oxygen By Nasal Cannula (05/17/25 15:27) Vital Signs Date Time Temp Pulse Resp B/P (MAP) Pulse Ox O2 Delivery O2 Flow Rate FiO2 05/17/25 15:19 102.4 05/17/25 14:27 121 29 95 40 05/17/25 14:08 140/89 05/17/25 12:53 142/88 05/17/25 12:03 164/94 05/17/25 12:00 83 05/17/25 11:22 97 26 95 50 05/17/25 10:30 101 20 138/89 (105) 98 05/17/25 10:15 97.0 108 20 116/35 97 60.0 100 97.0 05/17/25 10:15 105 20 133/93 (106) 98 05/17/25 10:00 106 21 168/101 (123) 99 05/17/25 09:45 109 20 170/104 (126) 99 05/17/25 09:33 115 20 97 100 05/17/25 09:30 109 21 151/103 (119) 99 05/17/25 09:30 109 21 99 Mechanical Ventilator+ 60 60 05/17/25 09:24 111 21 175/107 (129) 98 05/17/25 09:07 116/35 05/17/25 09:06 116/35 05/17/25 08:50 97.0 110 20 113/62 97 97.0 Laboratory Tests Test 05/17/25 09:34 05/17/25 11:50 Lactic Acid Level 2.2 mmol/L (0.4-2.0) *H 3.1 mmol/L (0.4-2.0) *H White Blood Count 21.6 10^3/uL (4.4-10.8) H Medications Medications Dose Ordered Sig/Hannah Route Start Time Stop Time Status Last Admin Dose Admin Cefepime HCl 50 ml @ 50 mls/hr ONCE ONCE IV 05/17/25 09:30 05/17/25 10:29 DC 05/17/25 10:40 50 MLS/HR Clindamycin Phosphate 50 ml @ 50 mls/hr ONCE ONCE IV 05/17/25 10:15 05/17/25 11:14 DC 05/17/25 12:39 50 MLS/HR Etomidate 20 mg ONCE ONCE IV 05/17/25 09:30 05/17/25 09:31 DC 05/17/25 09:06 20 MG Flumazenil 0.2 mg ONCE ONCE IV 05/17/25 09:15 05/17/25 09:16 DC 05/17/25 09:16 0.2 MG Ibuprofen 800 mg ONCE ONCE PO 05/17/25 15:00 05/17/25 15:01 DC 05/17/25 15:19 800 MG Midazolam HCl 50 ml @ 1 mls/hr Q24H IV 05/17/25 09:30 05/17/25 12:53 6 MLS/HR Propofol 100 ml @ 2.319 mls/ hr Q24H IV 05/17/25 13:00 05/17/25 14:08 2.319 MLS/HR Rocuronium [place] 100 mg ONCE ONCE IV 05/17/25 09:30 05/17/25 09:31 DC 05/17/25 09:06 100 MG Sodium Chloride 1,000 ml @ 150 mls/hr Q6H40M ONCE IV 05/17/25 09:00 05/17/25 15:39 DC 05/17/25 12:41 150 MLS/HR Sodium Chloride 1,000 ml @ 1,000 mls/hr Q1H ONCE IV 05/17/25 09:00 05/17/25 10:00 DC 05/17/25 10:40 1,000 MLS/HR Sodium Chloride 1,000 ml @ 1,000 mls/hr Q1H ONCE IV 05/17/25 13:00 05/17/25 13:59 DC 05/17/25 13:03 1,000 MLS/HR Assessment/Plan Assessment/Plan Assessment: Metabolic encephalopathy, Gross hematuria, Rhabdomyolysis, Lactic acidosis, Hyperglycemia, Diabetes, Plan: Admit to ICU, Urology consult, CBI, IV antibiotics, IV hydration, A1c, TSH, CK, Lactic, CBC, Accu checks Q AC&HS with sliding scale, ABG in am, Versed and propofol for sedation, wean down as tolerated Plan discussed with: Patient My Orders Orders - SUDHAKAR ZELAYA BILINGUAL LEGAL ASSISTANT Procedure Category Date Status Time Admit ADMIT 05/17/25 Transmitted 15:27 Code Status CODE 05/17/25 Transmitted 15:27 Ondansetron Hcl PHA 05/17/25 Logged (Zofran) 15:30 Docusate Sodium PHA 05/17/25 Logged Capsule (Colace 15:30 Complete Blood Count LAB 05/18/25 Verified 04:00 Comprehensive LAB 05/18/25 Verified Metabolic Panel 04:00 Npo (Nothing By DIET 05/17/25 Transmitted Mouth) Diet Dinner Echo 2d Mode Cardiac US 05/17/25 Logged DOP 15:27 Condition: Critical SHAN 05/17/25 In Process 15:27 Nitroglycerin PHA 05/17/25 In Process Sublingual (Ntrostat 15:30 Morphine Sulfate PHA 05/17/25 Logged Injection 15:30 Stat Ekg For Chest [facility] 05/17/25 In Process Pain 15:27 Notify Md Of Changes [facility] 05/17/25 In Process From Base 15:27 Steam Shovel Operating Engineer For [facility] 05/17/25 In Process 24 Hours 15:27 Emergency Dysrhythmia [facility] 05/17/25 In Process Protocol 15:27 Rhythm Strips Once [facility] 05/17/25 In Process Every Shift 15:27 Oxygen By Nasal RT 05/17/25 Transmitted Cannula 15:27 Date of Service: May 17, 2025 Billing Provider: SUDHAKAR ZELAYA Common Visit Codes: [id number] INP/OBS CARE (HIGH) SUDHAKAR ZELAYA May 17, 2025 16:04
[2025-05-17] MEDS: OPTISON 3ml Vial for INJ IV ONE (16:20)
[2025-05-17 16:53] LABS: Hematocrit 52.9 % (36.0-46.0); Hemoglobin 17.6 g/dL (12.2-16.2); Mean Corpuscular Hemoglobin 31.5 pg (28.0-32.0); Mean Corpuscular Volume 95.0 fL (80.0-100.0)
[2025-05-17] MEDS ORDERED: VANCOMYCIN PER PHARMACY 0 MG IV SCH (17:00)
[2025-05-17] MEDS ORDERED: DEXTROSE (50%) 50ML SYRG IV PRN (17:00)
[2025-05-17 17:11] LABS: Total Cells Counted 100.0 (100)
[2025-05-17 17:13] LABS: Lactic Acid w/Reflex 3.0 mmol/L (0.4-2.0)
[2025-05-17] MEDS: VANCOMYCIN 1.5GM/250ML 250 ML IV ONE (17:45)
[2025-05-17] MEDS: SODIUM CHLORIDE 0.9% 1,000 ML IV SCH (18:09)
--- NOTE | 2025-05-17 18:22 | DVHSR ---
APPROVED REPORT EXAM: Two-dimensional and M-mode echocardiogram with Doppler, color Doppler and Optison. Blood Pressure: 140/89 mmHg INDICATION Uncontrolled hypertension RISK FACTORS Height: 5'0", Weight: 170 DIMENSIONS LVDd3.8 (3.8-5.7cm)LA (2D)2.6 (1.9-4.0cm)Aortic Root3.3 (2.0-3.7cm) LVDs2.6 (2.5-4.0cm)LA (MM) (1.9-4.0cm)Aortic Cusp Exc2.0 (1.5-2.0cm) EF (%) 60.0 (55-70%)Rt. Atrium2.9 (1.9-4.0cm)Asc. Aorta cm IVSd0.8 (0.7-1.1cm)RV (D) (1.8-2.4cm) PWd0.8 (0.7-1.1cm) Mitral Valve MitralMitral Stenosis E wave0.54m/sMV Mean GR.mmHg A wave0.87m/sMV Peak GR.mmHg E/A ratio0.62D MVAcm2 DECEL [id number] 1/2 [place] Aortic Valve Aortic ValveAortic Stenosis V10.98m/Bernardo Mean GR.4mmHg V21.32m/Bernardo Peak GR.7mmHg LVOT Diameter2.2 (1.8-2.4cm)Doppler AVA2.82cm2 Other Information Technically limited study due to body habitus. Conclusion Technically difficult study. Difficult acoustic windows. Aortic root enlargement. Left ventricular enlargement of mild degree. Mild left atrial enlargement. Mild mitral annular calcification. The aortic valve appears to be structurally normal. Tricuspid an d pulmonic appear to be structurally normal. Left ventricular function appears to be preserved at 55% with normal RV function. Contrast ECHO conf irms left ventricular function. Dopplers unremarkable. No pericardial effusion masses or vegetations.
[2025-05-17] MEDS: ACCU-CHEK COMFORT CURVE STRIP VI SCH (20:12)
[2025-05-17] MEDS: InsuLIN REG 1unit/0.01ml Soln (100units/ml) SC SCH (20:12)
[2025-05-17] MEDS: CEFEPIME 1GM/50ML 50 ML IV SCH (22:00)
[2025-05-18] VITALS (106 sets, daily range): BP systolic 11–136; BP diastolic 57–80; PULSE 75–100; RESP 11–31; TEMP 97.9–99.8; O2SAT 94–99
[2025-05-18 03:49] LABS: Hematocrit 44.0 % (36.0-46.0); Hemoglobin 14.9 g/dL (12.2-16.2); Mean Corpuscular Hemoglobin 31.9 pg (28.0-32.0); Mean Corpuscular Volume 94.5 fL (80.0-100.0); Nucleated Red Blood Cells % 0.0 %
[2025-05-18 03:56] LABS: Anion Gap 8 (5-15); BUN/Creatinine Ratio 12.8 (10.0-20.0); Blood Urea Nitrogen 11 mg/dL (9-23); Carbon Dioxide 22 mmol/L (20-31); Total Protein 6.4 g/dL (5.7-8.2)
[2025-05-18 03:57] LABS: Albumin 3.6 g/dL (3.2-4.8); Bilirubin, Total 0.6 mg/dL (0.2-1.0)
[2025-05-18 04:15] LABS: Alanine Aminotransferase 74 U/L (7-40); Alkaline Phosphatase 192 U/L (46-116); Calcium 8.0 mg/dL (8.7-10.4); Chloride 115 mmol/L (98-107); Glucose 169 mg/dL (74-106); Potassium 3.3 mmol/L (3.5-5.1); Sodium 145 mmol/L (136-145)
[2025-05-18 04:42] LABS: Creatine Kinase IFCC 848 U/L (34-145)
[2025-05-18] MEDS: POTASSIUM CHL 20MEQ/100ML 100 ML IV ONE (04:56)
--- NOTE | 2025-05-18 05:43 | DVH ---
CHEST RADIOGRAPH Indication: RESP DISTRESS Technique: Single frontal view of the chest was obtained COMPARISON: XY CHEST PORTABLE on DOS: 05/17/25 FINDINGS: Lines and Tubes: Endotracheal tube, enteric catheter and right central venous catheter in satisfactor y position Lungs: Congestion Pleura: No effusion. No pneumothorax. Cardiomediastinal contours: Unremarkable Bones: Unremarkable IMPRESSION: Lines and tubes in satisfactory position. No significant interval change.
[2025-05-18 06:40] LABS: Base Excess -7.2 mmol/L (-2.0-3.0)
[2025-05-18] MEDS: IPRATROPIUM BROM 0.5 MG/2.5ML INH SOL NEB SCH (08:15)
[2025-05-18] MEDS: ALBUTEROL SULF 2.5 MG/0.5ML(0.5%) NEB SOLN NEB SCH (08:15)
[2025-05-18 09:16] LABS: Creatine Kinase IFCC 861.0 U/L (34-145)
[2025-05-18] MEDS: LACTATED RINGER'S 1,000 ML IV SCH (09:30)
[2025-05-18] MEDS: MAGNESIUM SULFATE 1GM/100ML 100 ML IV ONE ×2 (09:45→10:42)
[2025-05-18] MEDS: DOCUSATE SOD 100 MG CAP PO PRN (10:00)
[2025-05-18] MEDS: FOLIC ACID 1 MG in D5W 5% 50 ML INJ SCH (10:00)
[2025-05-18 10:17] LABS: Uric Acid 2.6 mg/dL (3.1-7.8)
[2025-05-18] MEDS: THIAMINE 100mg/ml INJ (200mg/2ml VIAL) IV SCH (10:30)
--- NOTE | 2025-05-18 10:37 | DVHPNRES ---
Progress Note Date Seen: May 18, 2025 Resident Creating Document: LOWELL YOUNGBLOOD RESIDENT Medical Necessity Reason Pt with a Central, PICC or Fol: Yes The following are medically ne: Central Line, Crespo Catheter Subjective Review of Systems This is a 49-year-old female with diabetes mellitus uncontrolled, possible history of drug use, hypertension on amlodipine who was BIBA to the ER as she was found unresponsive at her house, patient received 2 doses of [place] IM and IV, 2 mg and 1 mg followed which he vomited once, on arrival to the ER, pH was 7.22, CO2 60, bicarb 24 and patient was not able to protect her airway therefore she was intubated 05/17 around 9:00 a.m. Patient was febrile at 1:02 a.m. 0.4, white cell 21 with 85% neutrophils, Crespo was placed which past gross hematuria, urology was consulted, recommended continuous bladder irrigation with clear the urine. UA showed 3+ esterase, nitrites were negative, 1039 WBCs. UDS positive for amphetamines and benzodiazepines. CT abdomen completed, showed nonobstructive left renal feel stone, left lower lobe /consolidation. Per nurse, patient had some residual food in her mouth. Patient was started on IV vancomycin and cefepime, cefepime was switched to meropenem 05/18 given the risk of ESBL. Head CT negative Social history: Per son, patient smokes, does not drink anymore, Patient has a son who lives with her grand mom in [place], who talked to the patient for 5 days back. Daughter lives in [place]. Patient currently lives with her boyfriend Koko. Patient seen and examined in 110. On propofol and Versed. AKA is resolving, electrolytes replenish. Cefepime switched to meropenem for ESBL coverage, duo nebs started q.6 hourly. Cultures preliminary negative. Objective vital signs Vital Sign Date Time Temp Pulse Resp B/P (MAP) Pulse Ox O2 Delivery O2 Flow Rate FiO2 05/18/25 09:39 83 26 102/60 (74) 96 30 05/18/25 08:00 Mechanical Ventilator+ 05/18/25 06:45 98.2 208.8 05/17/25 10:15 60.0 Total Intake and Output 05/17/25 05/17/25 05/18/25 15:00 23:00 07:00 Intake Total 2350 ml 2355.380 ml 1184.932 ml Output Total 350 ml 150 ml 1450 ml Balance 2000 ml 2205.380 ml -265.068 ml medications Current Medications Medications Dose Ordered Sig/Hannah Route Start Time Stop Time Status Last Admin Dose Admin Midazolam HCl 50 ml @ 1 mls/hr Q24H IV 05/17/25 09:30 05/18/25 08:13 10 MLS/HR Propofol 100 ml @ 2.319 mls/ hr Q24H IV 05/17/25 13:00 05/18/25 08:14 9.276 MLS/HR Ondansetron HCl 4 mg Q4HP PRN IV 05/17/25 15:30 Docusate Sodium 100 mg BIDPRN PRN PO 05/17/25 15:30 Nitroglycerin 0.4 mg Q5MINP PRN SL 05/17/25 15:30 Vancomycin HCl 0 ml @ 0 mls/hr UD IV 05/17/25 17:00 Diagnostic Test (Pha) 1 strip Q6HR 05/17/25 18:00 05/18/25 06:00 1 STRIP Insulin Human Regular Q6HR SC 05/17/25 18:00 05/18/25 06:00 2 UNITS Dextrose 50 ml UD PRN IV 05/17/25 17:00 Sodium Chloride 1,000 ml @ 150 mls/hr Q6H40M IV 05/17/25 17:30 05/17/25 18:09 150 MLS/HR Ipratropium [place] 0.5 mg Q6HR NEB 05/18/25 08:15 Albuterol 2.5 mg Q6HR NEB 05/18/25 08:15 Thiamine HCl 100 mg DAILY IV 05/18/25 08:30 Folic Acid 1 mg/ Dextrose 50.2 ml @ 200.8 mls/ hr DAILY INJ 05/18/25 08:30 Vancomycin HCl 100 ml @ 100 mls/hr Q12H IV 05/18/25 12:00 UNV Pantoprazole Sodium 40 mg DAILY IV 05/19/25 10:00 Meropenem 50 ml @ 17 mls/hr Q8HR IV 05/18/25 14:00 Examination Obese female patient lying in the bed, intubated and sedated, RASS -4, not responding to commands or pain. Right-sided central venous catheter General: Morbidly obese, low-grade fever, palor, mucosae are moist Cardiovascular: Regular S1 and S2. No murmurs, gallops or rubs. No JVD elevation. 1+ bilateral pitting edema Respiratory: Expiratory wheezing heard on upper lung gleason bilaterally, coarse crackles on the left lateral side. Mechanically ventilated on 30% FiO2. Abdomen: Soft, hypoactive, slightly distended bowel sounds, no rebound tenderness, no organomegaly, no masses Genitourinary: Crespo seen draining dark yellow urine, clearing up MSK/skin: Skin dry and warm Neurological: Pupils are isocoric and reactive. laboratory and microbiology Laboratory Tests 05/18/25 03:00 Test 05/18/25 03:00 Range/Units Serum Glucose 169 H 74-106 mg/dL Microbiology Date/Time Source Procedure Growth Status 05/17/25 09:45 Blood Blood Culture - Preliminary NO GROWTH AFTER 24 HOURS OF INCUBATION. Resulted Labs and/or images reviewed: Labs reviewed by me, Image(s) reviewed by me Problem List/Assessment/Plan Problem List/Assessment/Plan NEURO: Acute metabolic encephalopathy secondary to sepsis and drug intoxication/seizure/stroke Possible drug intoxication Benzo and meth use dependence UDS positive for benzodiazepines and methamphetamine CT head negative Ammonia pending CARDIOVASCULAR: Sepsis likely Gram-positive and Gram-negative pneumonia and UTI Lactic acidosis HTN Blood pressure currently adequately controlled without antihypertensives IV vancomycin 05/17 and IV meropenem 05/18 for ESBL coverage Echo completed, shows 55% EF PULMONARY: Acute hypercapnic resp failure s/p intubation05/17 Sepsis likely Gram-positive and Gram-negative pneumonia Likely aspiration pneumonia Blood culture/respiratory culture/urine culture pending MRSA nares/COVID and low pending Left lower lobe opacification and infiltration ESR 30, CRP 17 GASTRO: Transamnitis Likely metabolic steatosis Continue monitoring LFTs GENITOURINARY: Gross hematuria Nonobstructive curvilinear left renal caliceal stone ?complicated cystitis Early rhabdomyolysis Urology on board-recommended continuous bladder irrigation, urine clearing up IV vancomycin and IV meropenem IV LR 100 cc/hour CK downtrending METABOLIC: Uncontrolled T2DM - A1C 8.7 Obesity Likely metabolic syndrome Mild ISS INFECTIOUS DISEASE: Gram-positive and Gram-negative pneumonia Sepsis due to above ?complicated cystitis Pancultures pending Tube feeding Glucerna 40 cc/hour, nutritional consult pending 05/10 DIET: DVT prophylax: SCDs given hematuria GI prophylaxis: Protonix 40 mg IV daily Bowel regimen: Code status: Full code LINES/DRAINS/ACCESS: IV access: R IJ 05/17 Drips: Versed, Propofol Crespo catheter: 05/17 DISPOSITION: ICU Patient's status discussed with patient's Tari at the bedside in which all questions have been answered Critical care time spent more than 86 minutes, including patient care, chart review, and updating the family (son and mother, at bedside) in detail. Excluding any procedures Case discussed with Dr. Gong Plan discussed with: Son My Orders My Orders Orders - FORD,LOWELL RESIDENT Procedure Category Date Status Time Mrsa Screen MILTON 05/18/25 Logged 08:09 Covid19 Antigen Christine LAB 05/18/25 Logged Rapid Influenza A&B LAB 05/18/25 Logged 08:09 Ipratropium Medneb PHA 05/18/25 In Process (Atrovent Medneb) 08:15 Albuterol Medneb PHA 05/18/25 In Process (Ventolin Medneb) 08:15 Consult For Nutrition NOURISH 05/18/25 Transmitted 08:09 Thiamine Inj PHA 05/18/25 In Process 08:30 Folic Acid PHA 05/18/25 In Process 08:30 Magnesium Sulfate PHA 05/18/25 In Process 1gm/100ml 09:45 Kub Abdomen Single XY 05/18/25 Logged View 10:15 Beta Hcg, Quantitative LAB 05/18/25 In Process 10:15 Pantoprazole PHA 05/19/25 In Process (Protonix) 10:00 Sequential SHAN 05/18/25 In Process Compression Device 10:15 Strict I & O SHAN 05/18/25 In Process 10:15 Strict Aspiration SHAN 05/18/25 In Process Precautions 10:15 Bed Rest With Hob At SHAN 05/18/25 In Process 30-45 Deg 10:15 Meropenem 1gm Ivpb PHA 05/18/25 In Process (Merrem 1gm/ Ns) 14:00 Erythrocyte LAB 05/18/25 In Process Sedimentation Rate 10:24 C-Reactive Protein LAB 05/18/25 In Process 10:24 Copy Of Previous SHAN 05/18/25 In Process Medical Recor 10:24 Obtain Mr From Other ORDERS 05/18/25 Transmitted Facility 10:24 Urine LAB 05/18/25 In Process Protein/Creatinine Lactic Acid W/ Reflex LAB 05/18/25 Transmitted Order 10:35 Date of Service: May 18, 2025 Billing Provider: WILL GONG MD Common Visit Codes: 49687-EDPFONFP CARE 30-74 MIN, 45384-[id number] CARE-EACH +30MIN LOWELL YOUNGBLOOD RESIDENT May 18, 2025 10:37 WILL GONG MD May 22, 2025 15:45
[2025-05-18] MEDS: MEROPENEM 1GM IVPB 50 ML IV SCH (10:42)
[2025-05-18] MEDS: PANTOPRAZOLE 40 MG/10 ML VIAL INJ IV ONE (10:43)
--- NOTE | 2025-05-18 12:29 | DVH ---
EXAM: XY KUB ABDOMEN SINGLE VIEW HISTORY: hypoactive bowel COMPARISON: None TECHNIQUE: Supine view of the abdomen FINDINGS/IMPRESSION: Nonobstructive bowel gas pattern noted. There is no evidence for pneumoperitoneum. No abnormal calcif ications noted. Enteric tube extending into the distal stomach
[2025-05-18] MEDS: VANCOMYCIN 750MG KIT 100 ML IV SCH (13:23)
[2025-05-18 16:15] LABS: COVID19 ANTIGEN SOFIA FIA NEGATIVE (NEGATIVE)
[2025-05-18] MEDS: Glucerna 1.2 Cal 1Liter BOTTLE PO SCH (22:05)
[2025-05-19] VITALS (104 sets, daily range): BP systolic 86–173; BP diastolic 45–96; PULSE 89–125; RESP 8–99; TEMP 97.9–100.8; O2SAT 92–99
[2025-05-19 03:45] LABS: Hematocrit 38.6 % (36.0-46.0); Hemoglobin 12.9 g/dL (12.2-16.2); Mean Corpuscular Hemoglobin 31.2 pg (28.0-32.0); Mean Corpuscular Volume 93.3 fL (80.0-100.0); Nucleated Red Blood Cells % 0.0 %
[2025-05-19 03:57] LABS: Albumin 3.4 g/dL (3.2-4.8); Anion Gap 11 (5-15); BUN/Creatinine Ratio 10.3 (10.0-20.0); Bilirubin, Total 0.4 mg/dL (0.2-1.0); Carbon Dioxide 22 mmol/L (20-31); Magnesium 2.0 mg/dL (1.6-2.6); Sodium 143 mmol/L (136-145); Total Protein 6.1 g/dL (5.7-8.2)
[2025-05-19 03:59] LABS: Alanine Aminotransferase 71 U/L (7-40); Alkaline Phosphatase 176 U/L (46-116); Blood Urea Nitrogen 8 mg/dL (9-23); Calcium 8.1 mg/dL (8.7-10.4); Chloride 110 mmol/L (98-107); Glucose 150 mg/dL (74-106); Potassium 3.0 mmol/L (3.5-5.1)
[2025-05-19] MEDS: POTASSIUM CHL 20MEQ/100ML 100 ML IV SCH (04:53)
--- NOTE | 2025-05-19 05:37 | DVH ---
CHEST RADIOGRAPH Indication: Follow up on left-sided infiltration Technique: Single frontal view of the chest was obtained COMPARISON: XY CHEST PORTABLE on DOS: 05/18/25, XY CHEST PORTABLE on DOS: 05/17/25 FINDINGS: Lines and Tubes: Endotracheal tube, enteric catheter and right central venous catheter in satisfactor y position Lungs: Congestion Pleura: No effusion. No pneumothorax. Cardiomediastinal contours: Unremarkable Bones: Unremarkable IMPRESSION: Lines and tubes in satisfactory position. No significant interval change.
[2025-05-19 06:55] LABS: Base Excess -1.2 mmol/L (-2.0-3.0)
[2025-05-19] MEDS: PANTOPRAZOLE 40 MG/10 ML VIAL INJ IV SCH (10:12)
--- NOTE | 2025-05-19 13:08 | DVHPNRES ---
Progress Note Date Seen: May 19, 2025 Resident Creating Document: LOWELL YOUNGBLOOD RESIDENT Medical Necessity Reason Pt with a Central, PICC or Fol: Yes The following are medically ne: Central Line, Crespo Catheter Subjective Review of Systems This is a 49-year-old female with diabetes mellitus uncontrolled, possible history of drug use, hypertension on amlodipine who was BIBA to the ER as she was found unresponsive at her house, patient received 2 doses of [place] IM and IV, 2 mg and 1 mg followed which he vomited once, on arrival to the ER, pH was 7.22, CO2 60, bicarb 24 and patient was not able to protect her airway therefore she was intubated 05/17 around 9:00 a.m. Patient was febrile at 1:02 a.m. 0.4, white cell 21 with 85% neutrophils, Crespo was placed which past gross hematuria, urology was consulted, recommended continuous bladder irrigation with clear the urine. UA showed 3+ esterase, nitrites were negative, 1039 WBCs. UDS positive for amphetamines and benzodiazepines. CT abdomen completed, showed nonobstructive left renal feel stone, left lower lobe /consolidation. Per nurse, patient had some residual food in her mouth. Patient was started on IV vancomycin and cefepime, cefepime was switched to meropenem 05/18 given the risk of ESBL. Head CT negative [facility] RECORDS REVIEWED: Patient was admitted to [facility] 02/17 - 02/20 ?[facility] for Sepsis d/t perineal abcess, R labial abcess 10x4x8 mm s/p I&d 02/18 and vanc+zosyn+clinda, new T2DM A1C 13.4, BMI 51, HTN, meth use, hepatic stetosis, cholelithiasis, subserosal fibroid, polyglandular endocrinopathy. Abcess grew MRSA tsh was 17.6, normal free T4, fT3 1.39 (LOW), TPO antibody >600, unremarkable thyroid US 02/19/25 Social history: Per son, patient smokes, does not drink anymore, Patient has a son who lives with her grand mom in [place], who talked to the patient for 5 days back. Daughter lives in [place]. Patient currently lives with her boyfriend Koko. 05/18 - Patient seen and examined in 110. On propofol and Versed. AKA is resolving, electrolytes replenish. Cefepime switched to meropenem for ESBL coverage, duo nebs started q.6 hourly. Cultures preliminary negative. 05/19 - off sedation 9:30AM, demetrius well, low fever 100F, pt grimaces to painful stimuli Objective vital signs Vital Sign Date Time Temp Pulse Resp B/P (MAP) Pulse Ox O2 Delivery O2 Flow Rate FiO2 05/19/25 12:15 112 29 127/59 (81) 97 30 05/19/25 12:15 100.0 212.0 05/19/25 12:00 Mechanical Ventilator+ 05/19/25 10:00 0 Total Intake and Output 05/18/25 05/18/25 05/19/25 15:00 23:00 07:00 Intake Total 1128.304 ml 765.656 ml 1080.656 ml Output Total 325 ml 1175 ml Balance 1128.304 ml 440.656 ml -94.344 ml medications Current Medications Medications Dose Ordered Sig/Hannah Route Start Time Stop Time Status Last Admin Dose Admin Midazolam HCl 50 ml @ 1 mls/hr Q24H IV 05/17/25 09:30 05/19/25 04:52 10 MLS/HR Propofol 100 ml @ 2.319 mls/ hr Q24H IV 05/17/25 13:00 05/18/25 22:12 6.957 MLS/HR Ondansetron HCl 4 mg Q4HP PRN IV 05/17/25 15:30 Docusate Sodium 100 mg BIDPRN PRN PO 05/17/25 15:30 05/18/25 10:00 100 MG Nitroglycerin 0.4 mg Q5MINP PRN SL 05/17/25 15:30 Vancomycin HCl 0 ml @ 0 mls/hr UD IV 05/17/25 17:00 Diagnostic Test (Pha) 1 strip Q6HR 05/17/25 18:00 05/19/25 12:12 1 STRIP Insulin Human Regular Q6HR SC 05/17/25 18:00 05/19/25 12:13 3 UNITS Dextrose 50 ml UD PRN IV 05/17/25 17:00 Ipratropium [place] 0.5 mg Q6HR NEB 05/18/25 08:15 05/19/25 11:23 0.5 MG Albuterol 2.5 mg Q6HR NEB 05/18/25 08:15 05/19/25 11:23 2.5 MG Thiamine HCl 100 mg DAILY IV 05/18/25 08:30 05/19/25 10:12 100 MG Folic Acid 1 mg/ Dextrose 50.2 ml @ 200.8 mls/ hr DAILY INJ 05/18/25 08:30 05/19/25 10:15 200.8 MLS/HR Vancomycin HCl 100 ml @ 100 mls/hr Q12H IV 05/18/25 12:00 05/19/25 12:14 100 MLS/HR Pantoprazole Sodium 40 mg DAILY IV 05/19/25 10:00 05/19/25 10:12 40 MG Meropenem 50 ml @ 17 mls/hr Q8HR IV 05/18/25 14:00 05/19/25 04:53 17 MLS/HR Lactated Ringer's 1,000 ml @ 75 mls/hr [id number] IV 05/18/25 12:30 Hold 05/18/25 23:49 75 MLS/HR Enteral Nutritional Formula 1,000 ml 40ML/HR PO 05/18/25 14:00 05/18/25 22:05 1,000 ML Ibuprofen 600 mg Q6HP PRN GT 05/19/25 11:30 Examination Obese female patient lying in the bed, intubated and sedated, RASS -4, not responding to commands or pain. Right-sided central venous catheter, low fever 100F, pt grimaces to painful stimuli General: Morbidly obese, low-grade fever, palor, mucosae are moist Cardiovascular: Regular S1 and S2. No murmurs, gallops or rubs. No JVD elevation. 1+ bilateral pitting edema Respiratory: No whhezing, coarse crackles on the left lateral side. Mechanically ventilated on 30% FiO2. Abdomen: Soft, hypoactive, slightly distended bowel sounds, no rebound tenderness, no organomegaly, no masses Genitourinary: Crespo seen draining dark yellow urine, clearing up MSK/skin: Skin dry and warm Neurological: Pupils are isocoric and reactive. laboratory and microbiology Laboratory Tests 05/19/25 03:00 Test 05/19/25 03:00 Range/Units Serum Glucose 150 H 74-106 mg/dL Microbiology Date/Time Source Procedure Growth Status 05/17/25 18:08 Nose MRSA Screen - Final Complete 05/17/25 13:10 Urine - Catheterized Urine Culture - Preliminary Resulted 05/17/25 09:45 Blood Blood Culture - Preliminary NO GROWTH AFTER 48 HOURS OF INCUBATION. Resulted 05/17/25 09:32 Sputum Expectorated Sputum Gram Stain Pending Resulted 05/17/25 09:32 Sputum Expectorated Sputum Respiratory Culture - Preliminary Resulted Labs and/or images reviewed: Labs reviewed by me, Image(s) reviewed by me Problem List/Assessment/Plan Problem List/Assessment/Plan NEURO: Acute metabolic encephalopathy secondary to sepsis and drug intoxication/seizure/stroke Possible drug intoxication Benzo and meth use dependence UDS positive for benzodiazepines and methamphetamine CT head negative Ammonia wnl CARDIOVASCULAR: Sepsis likely Gram-positive and Gram-negative pneumonia and UTI Lactic acidosis HTN Blood pressure currently adequately controlled without antihypertensives IV vancomycin 05/17 and IV meropenem 05/18 for ESBL coverage Echo completed, shows 55% EF PULMONARY: Acute hypercapnic resp failure s/p intubation05/17 Sepsis likely Gram-positive and Gram-negative pneumonia Likely aspiration pneumonia Blood culture/respiratory culture/urine culture pending MRSA nares/COVID and flu pending Left lower lobe opacification and infiltration ESR 30, CRP 17 GASTRO: Transamnitis hepatic stetosis Hx of cholelithiasis Likely metabolic steatosis Continue monitoring LFTs GENITOURINARY: Gross hematuria Nonobstructive curvilinear left renal caliceal stone ?complicated cystitis Early rhabdomyolysis Urology on board-recommended continuous bladder irrigation, urine clearing up IV vancomycin and IV meropenem IV LR 75 cc/hour CK uptrending METABOLIC: Uncontrolled T2DM - A1C 8.7 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 Obesity Mild ISS, Lantus 5 HS TSH 14, free T4 0.72, total T3 1.17, TPO antibody >600 at [facility] per records Levothyroxine 1.6mcg/kg = 150mcg 6AM daily INFECTIOUS DISEASE: Gram-positive and Gram-negative pneumonia Sepsis due to above ?complicated cystitis Hx of sepsis with R perineal abcess s/p I&D 02/19 Pancultures pending OBGYN Hx of sepsis with R perineal abcess s/p I&D 02/19 subserosal fibroid -White Discharge noted, culture, gono/chlam pending Tube feeding Glucerna 40 cc/hour, nutritional consult pending 05/10 DIET: DVT prophylax: SCDs given hematuria GI prophylaxis: Protonix 40 mg IV daily Bowel regimen: Lactulose daily Code status: Full code LINES/DRAINS/ACCESS: IV access: R IJ 05/17 Drips: Versed, Propofol Crespo catheter: 05/17 DISPOSITION: ICU Patient's status discussed with patient's Son/Mom at the bedside in which all questions have been answered Critical care time spent more than 59 minutes, including patient care, chart review, and updating the family (son and mother, at bedside) in detail. Excluding any procedures Case discussed with Dr. Saeed Plan discussed with: Patient, Son (at bedside) My Orders My Orders Orders - LOWELL YOUNGBLOOD Procedure Category Date Status Time Nutritional PHA 05/18/25 In Process Supplements (Glucerna 14:00 Chest Xray 1 View XY 05/19/25 Resulted 04:00 Abg W/ Co-Ox RT 05/19/25 Logged 04:00 Communication Order ORDERS 05/19/25 Transmitted 09:20 B-Type Natriuretic LAB 05/19/25 Logged Peptide 14:00 Phosphorus LAB 05/19/25 Logged 14:00 Uric Acid LAB 05/19/25 Logged 14:00 Ibuprofen 100mg/5 Ml PHA 05/19/25 In Process Oral Susp (Motrin 1 11:30 Thyroid Stimulating LAB 05/19/25 Logged Hormone 12:46 Free T4 (Free LAB 05/19/25 Logged Thyroxine) 12:46 T3 Total LAB 05/19/25 Logged 12:46 Pelvic US 05/19/25 Logged 12:46 LOWELL YOUNGBLOOD May 19, 2025 13:07
--- NOTE | 2025-05-19 14:13 | DVH ---
Exam: US PELVIC Date: 05/19/2025 01:52 PM Clinical History: FOLLOW UP LABIAL ABCESS Comparison: CT CT AB PEL WO CON-NO ORAL OR IV on DOS: 05/17/25, US BLADDER on DOS: 05/17/25 Technique: Targeted sonographic evaluation of the soft tissues of the right labia region was obtained utilizing grayscale and color Doppler imaging. Findings: There is no evidence for drainable collection. There is no evidence for solid or cystic mass in the site. No vascular abnormalities identified at this site. IMPRESSION: No definite sonographic abnormality is identified in the soft tissues of the right labia region
[2025-05-19 14:35] LABS: Free T4 (Free Thyroxine) 0.72 ng/dL (0.89-1.76)
[2025-05-19] MEDS: LACTULOSE 20Gm/30ML SOLN PO ONE (15:09)
[2025-05-19] MEDS: IBUPROFEN 100MG/5ML ORAL SUSP 100 MG/5 ML UD GT PRN (15:15)
[2025-05-19 15:22] LABS: Uric Acid 1.3 mg/dL (3.1-7.8)
[2025-05-19] MEDS: DOCUSATE ORAL LIQUID 100 MG/10 ML UD GT PRN (23:56)
[2025-05-20] VITALS (111 sets, daily range): BP systolic 86–149; BP diastolic 47–110; PULSE 84–109; RESP 13–38; TEMP 98.2–100.2; O2SAT 93–100
[2025-05-20 03:38] LABS: Hematocrit 35.8 % (36.0-46.0); Hemoglobin 12.2 g/dL (12.2-16.2); Mean Corpuscular Hemoglobin 31.5 pg (28.0-32.0); Mean Corpuscular Volume 92.7 fL (80.0-100.0); Nucleated Red Blood Cells % 0.0 %
[2025-05-20 03:50] LABS: Albumin 3.4 g/dL (3.2-4.8); Anion Gap 7 (5-15); BUN/Creatinine Ratio 12.2 (10.0-20.0); Bilirubin, Total 0.3 mg/dL (0.2-1.0); Blood Urea Nitrogen 9 mg/dL (9-23); Carbon Dioxide 27 mmol/L (20-31); Magnesium 2.0 mg/dL (1.6-2.6); Sodium 143 mmol/L (136-145); Total Protein 6.0 g/dL (5.7-8.2)
[2025-05-20 03:51] LABS: Alanine Aminotransferase 51 U/L (7-40); Alkaline Phosphatase 158 U/L (46-116); Calcium 8.5 mg/dL (8.7-10.4); Chloride 109 mmol/L (98-107); Glucose 160 mg/dL (74-106); Potassium 3.2 mmol/L (3.5-5.1)
[2025-05-20] MEDS: POTASSIUM CHL 20MEQ/100ML 100 ML IV SCH (04:59)
[2025-05-20] MEDS: LEVOTHYROXINE SODIUM 50 MCG TAB PO SCH (05:04)
--- NOTE | 2025-05-20 06:42 | DVH ---
CHEST RADIOGRAPH Indication: f/u of congestion Technique: Single frontal view of the chest was obtained COMPARISON: XY CHEST XRAY 1 VIEW on DOS: 05/19/25, XY CHEST PORTABLE on DOS: 05/18/25, XY CHEST PORTABL E on DOS: 05/17/25 FINDINGS: Lines and Tubes: Endotracheal tube, enteric catheter and right central venous catheter in satisfactor y position Lungs: Congestion Pleura: No effusion. No pneumothorax. Cardiomediastinal contours: Unremarkable Bones: Unremarkable IMPRESSION: Lines and tubes in satisfactory position. No significant interval change.
[2025-05-20 07:02] LABS: Base Excess 1.8 mmol/L (-2.0-3.0)
[2025-05-20] MEDS: LACTULOSE 20Gm/30ML SOLN PO SCH (10:00)
--- NOTE | 2025-05-20 10:14 | DVHPN2 ---
Subjective This is a 49-year-old female with diabetes mellitus uncontrolled, possible history of drug use, hypertension on amlodipine who was BIBA to the ER as she was found unresponsive at her house, patient received 2 doses of [place] IM and IV, 2 mg and 1 mg followed which he vomited once, on arrival to the ER, pH was 7.22, CO2 60, bicarb 24 and patient was not able to protect her airway therefore she was intubated 05/17 around 9:00 a.m. Patient was febrile at 1:02 a.m. 0.4, white cell 21 with 85% neutrophils, Crespo was placed which past gross hematuria, urology was consulted, recommended continuous bladder irrigation with clear the urine. UA showed 3+ esterase, nitrites were negative, 1039 WBCs. UDS positive for amphetamines and benzodiazepines. CT abdomen completed, showed nonobstructive left renal feel stone, left lower lobe /consolidation. Per nurse, patient had some residual food in her mouth. Patient was started on IV vancomycin and cefepime, cefepime was switched to meropenem 05/18 given the risk of ESBL. Head CT negative [facility] RECORDS REVIEWED: Patient was admitted to [facility] 02/17 - 02/20 ?AMA for Sepsis d/t perineal abcess, R labial abcess 10x4x8 mm s/p I&d 02/18 and vanc+zosyn+clinda, new T2DM A1C 13.4, BMI 51, HTN, meth use, hepatic stetosis, cholelithiasis, subserosal fibroid, polyglandular endocrinopathy. Abcess grew MRSA tsh was 17.6, normal free T4, fT3 1.39 (LOW), TPO antibody >600, unremarkable thyroid US 02/19/25 Social history: Per son, patient smokes, does not drink anymore, Patient has a son who lives with her grand mom in [place], who talked to the patient for 5 days back. Daughter lives in [place]. Patient currently lives with her boyfriend Koko. 05/18 - Patient seen and examined in 110. On propofol and Versed. AKA is resolving, electrolytes replenish. Cefepime switched to meropenem for ESBL coverage, duo nebs started q.6 hourly. Cultures preliminary negative. 05/19 - off sedation 9:30AM, demetrius well, low fever 100F, pt grimaces to painful stimuli 05/20: Patient is getting sedation vacation trial, not really responding or following commands. Has some spontaneous movements of head, brainstem reflexes intact. Appears euvolemic. Intubated sedated/sedation vacation right now, ventilated settings a.c./20/4 100/30%/5.0, she has OG tube getting trickle feeds, drips include Versed 1 propofol 10. CBI no further bleed trickle rate for CVA currently. We will continue primary team's management otherwise. Patient does well on sedation vacation tomorrow we can try CPAP trial. Currently patient is not doing well likely we will retry sedation vacation tomorrow. Reviewed: Care Plan Changes from previous H/P or p: No Changes General: Per HPI Objective Vitals Vital Signs Date Time Temp Pulse Resp B/P (MAP) Pulse Ox O2 Delivery O2 Flow Rate FiO2 05/20/25 09:00 99.5 93 24 135/84 (101) 95 211.1 05/20/25 08:10 Mechanical Ventilator+ 30 30 05/19/25 10:00 0 Intake/Output Intake and Output 05/20/25 07:00 Intake Total 1266.113 ml Output Total 1650 ml Balance -383.887 ml Intake Oral 110 ml IV Total 751.113 ml Tube Feeding 405 ml Output Urine Total 1650 ml Stool Total 0 ml Exam General: Morbidly obese, low-grade fever, palor, mucosae are moist Cardiovascular: Regular S1 and S2. No murmurs, gallops or rubs. No JVD elevation. 1+ bilateral pitting edema Respiratory: No whhezing, coarse crackles on the left lateral side. Mechanically ventilated on 30% FiO2. Abdomen: Soft, hypoactive, slightly distended bowel sounds, no rebound tenderness, no organomegaly, no masses Genitourinary: Crespo seen draining dark yellow urine, clearing up MSK/skin: Skin dry and warm Neurological: Pupils are isocoric and reactive. Medications Current Medications Medications Dose Ordered Sig/Hannah Route Start Time Stop Time Status Last Admin Dose Admin Midazolam HCl 50 ml @ 1 mls/hr Q24H IV 05/17/25 09:30 05/19/25 15:58 4 MLS/HR Propofol 100 ml @ 2.319 mls/ hr Q24H IV 05/17/25 13:00 05/18/25 22:12 6.957 MLS/HR Ondansetron HCl 4 mg Q4HP PRN IV 05/17/25 15:30 Nitroglycerin 0.4 mg Q5MINP PRN SL 05/17/25 15:30 Vancomycin HCl 0 ml @ 0 mls/hr UD IV 05/17/25 17:00 Diagnostic Test (Pha) 1 strip Q6HR 05/17/25 18:00 05/20/25 05:18 1 STRIP Insulin Human Regular Q6HR SC 05/17/25 18:00 05/20/25 05:18 2 UNITS Dextrose 50 ml UD PRN IV 05/17/25 17:00 Ipratropium Carter 0.5 mg Q6HR NEB 05/18/25 08:15 05/20/25 06:28 0.5 MG Albuterol 2.5 mg Q6HR NEB 05/18/25 08:15 05/20/25 06:28 2.5 MG Thiamine HCl 100 mg DAILY IV 05/18/25 08:30 05/19/25 10:12 100 MG Folic Acid 1 mg/ Dextrose 50.2 ml @ 200.8 mls/ hr DAILY INJ 05/18/25 08:30 05/19/25 10:15 200.8 MLS/HR Pantoprazole Sodium 40 mg DAILY IV 05/19/25 10:00 05/19/25 10:12 40 MG Meropenem 50 ml @ 17 mls/hr Q8HR IV 05/18/25 14:00 05/20/25 05:04 17 MLS/HR Lactated Ringer's 1,000 ml @ 75 mls/hr [id number] IV 05/18/25 12:30 Hold 05/18/25 23:49 75 MLS/HR Enteral Nutritional Formula 1,000 ml 40ML/HR PO 05/18/25 14:00 05/20/25 06:30 1,000 ML Ibuprofen 600 mg Q6HP PRN GT 05/19/25 11:30 05/19/25 22:33 600 MG Lactulose 30 ml DAILY PO 05/20/25 10:00 Levothyroxine Sodium 150 mcg QAM@0600 PO 05/20/25 06:00 05/20/25 05:04 150 MCG Docusate Sodium 100 mg DAILY PRN GT 05/19/25 23:45 05/19/25 23:56 100 MG Potassium Chloride 100 ml @ 50 mls/hr Q2H IV 05/20/25 04:45 05/20/25 10:44 05/20/25 07:10 50 MLS/HR Vancomycin HCl 250 ml @ 200 mls/hr Q12H IV 05/20/25 12:00 Laboratory Results Laboratory Tests 05/20/25 02:53 Chemistry Test 05/19/25 14:36 05/20/25 02:53 Phosphorus Level 2.0 mg/dL (2.4-5.1) L Albumin 3.4 g/dL (3.2-4.8) Calcium Level 8.5 mg/dL (8.7-10.4) L Magnesium Level 2.0 mg/dL (1.6-2.6) Total Protein 6.0 g/dL (5.7-8.2) LFT Test 05/20/25 02:53 Alanine Aminotransferase (ALT) 51 U/L (7-40) H Alkaline Phosphatase 158 U/L (46-116) H Aspartate Amino Transferase (AST) 41 U/L (13-40) H Total Bilirubin 0.3 mg/dL (0.2-1.0) Urinalysis Test 05/17/25 13:10 05/18/25 10:31 Urine Color Red (Yellow) H Urine Clarity Ex.turbid (Clear) Urine pH 6.0 (5.0-9.0) Urine Specific [place] 1.015 (1.001-1.035) Urine Protein 2+ (Negative) H Urine Ketones Negative (Negative) Urine Blood 3+ /uL (Negative) H Urine Nitrite Negative (Negative) Urine Bilirubin Negative (Negative) Urine Urobilinogen Normal mg/dL (Negative) Urine Leukocyte Esterase 3+ /uL (Negative) Urine RBC 79599 /hpf (0 - 4) Urine Microscopic WBC 1039 /HPF (0-5) H Urine Squamous Epithelial Cells None seen /hpf (<5) Urine Bacteria None seen /hpf (None Seen) Urine Mucus Few (None Seen) Urine Glucose 1+ mg/dL (Normal) H Urine Creatinine Pending Urine Protein/Creatinine Ratio Pending Urine Total Protein Pending Blood Gas Results Test 05/20/25 06:58 Arterial Blood pH 7.448 (7.350-7.450) FiO2 % 30.0 Microbiology Microbiology Date/Time Source Procedure Growth Status 05/17/25 18:08 Nose MRSA Screen - Final Complete 05/17/25 13:10 Urine - Catheterized Urine Culture - Final Proteus mirabilis Complete 05/17/25 09:45 Blood Blood Culture - Preliminary NO GROWTH AFTER 72 HOURS OF INCUBATION. Resulted 05/17/25 09:32 Sputum Expectorated Sputum Gram Stain Pending Resulted 05/17/25 09:32 Sputum Expectorated Sputum Respiratory Culture - Preliminary Resulted Labs and/or images reviewed: Labs reviewed by me, Image(s) reviewed by me Assessment/Plan Assessment/Plan NEURO: Acute metabolic encephalopathy secondary to sepsis and drug intoxication/seizure/stroke Possible drug intoxication Benzo and meth use dependence UDS positive for benzodiazepines and methamphetamine CT head negative Ammonia wnl CARDIOVASCULAR: Sepsis likely Gram-positive and Gram-negative pneumonia and UTI Lactic acidosis HTN Blood pressure currently adequately controlled without antihypertensives IV vancomycin 05/17 and IV meropenem 05/18 for ESBL coverage Echo completed, shows 55% EF PULMONARY: Acute hypercapnic resp failure s/p intubation05/17 Sepsis likely Gram-positive and Gram-negative pneumonia Likely aspiration pneumonia Blood culture/respiratory culture/urine culture pending MRSA nares/COVID and flu pending Left lower lobe opacification and infiltration ESR 30, CRP 17 GASTRO: Transamnitis hepatic stetosis Hx of cholelithiasis Likely metabolic steatosis Continue monitoring LFTs GENITOURINARY: Gross hematuria Nonobstructive curvilinear left renal caliceal stone ?complicated cystitis Early rhabdomyolysis Urology on board-recommended continuous bladder irrigation, urine clearing up IV vancomycin and IV meropenem IV LR 75 cc/hour CK uptrending METABOLIC: Uncontrolled T2DM - A1C 8.7 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 Obesity Mild ISS, Lantus 5 HS TSH 14, free T4 0.72, total T3 1.17, TPO antibody >600 at [facility] per records Levothyroxine 1.6mcg/kg = 150mcg 6AM daily INFECTIOUS DISEASE: Gram-positive and Gram-negative pneumonia Sepsis due to above ?complicated cystitis Hx of sepsis with R perineal abcess s/p I&D 02/19 Pancultures pending OBGYN Hx of sepsis with R perineal abcess s/p I&D 02/19 subserosal fibroid -White Discharge noted, culture, gono/chlam pending Tube feeding Glucerna 40 cc/hour, nutritional consult pending 05/10 DIET: DVT prophylax: SCDs given hematuria GI prophylaxis: Protonix 40 mg IV daily Bowel regimen: Lactulose daily Code status: Full code LINES/DRAINS/ACCESS: IV access: R IJ 05/17 Drips: Versed, Propofol Crespo catheter: 05/17 DISPOSITION: ICU Plan discussed with: Other Date of Service: May 20, 2025 Billing Provider: SHANE BARRERA MD Common Visit Codes: [id number] CARE 30-74 MIN SHANE BARRERA MD May 20, 2025 10:14
[2025-05-20] MEDS: VANCOMYCIN 1GM/250ML KIT 250 ML IV SCH (12:14)
[2025-05-20] MEDS: POTASSIUM PHOSPHATE 26.4 MEQ in SODIUM CHL 0.9% 100 ML IV ONE (12:15)
[2025-05-20] MEDS: LACTATED RINGER'S 1,000 ML IV ONE (14:28)
--- NOTE | 2025-05-20 23:14 | DVHINCON2 ---
Date of service: May 20, [address] Roger. Reason for Consultation Acute hypoxic respiratory failure on mechanical ventilator, aspiration pneumonia History of Present Illness A 49-year-old woman with unclear past medical history, possible diabetes and thyroid disease, who was brought to the hospital by EMS on 05/17/25 after being found down. Patient was found unresponsive by roommates, with an unknown amount of down time. She was given Narcan by EMS with no response. On arrival to ER, pt was not responsive to verbal or painful stimuli. Patient was intubated shortly after arrival. A Crespo catheter was placed by ER and gross blood drained. Urology was consulted and CBI was initiated. CT scan showed nonobstructive left renal stone. Patient was admitted for further care. Pulmonary consultation is requested for evaluation and management of acute hypoxic respiratory failure on mechanical ve ntilator and aspiration pneumonia. Review of Systems: Unable to obtain d/t intubated status. Past Medical History: Diabetes, thyroid disease? Past Surgical History: Unable to obtain Medications: Reviewed. Allergies: Acetaminophen and codeine/Tylenol Family History: No family history of premature CAD. No family history of lung disorders. Social History: Unable to obtain. Family History: Patient reports no known family medical history. Allergies: Coded Allergies: Acetaminophen (Verified Allergy, Unknown, 05/17/25) Codeine (Verified Allergy, Unknown, 05/17/25) Uncoded Allergies: TYLENOL 3 (Allergy, Mild, 04/30/10) Current Medications Current Medications Medications (Trade) Dose Ordered Sig/Hannah Route PRN Reason Start Time Stop Time Status Last Admin Lactulose 30 ml DAILY PO 05/20/25 10:00 Levothyroxine Sodium (Synthroid Tablet) 150 mcg QAM@0600 PO 05/20/25 06:00 05/20/25 05:04 Docusate Sodium (Colace Liquid) 100 mg DAILY PRN GT FOR CONSTIPATION 05/19/25 23:45 05/19/25 23:56 Potassium Chloride 100 ml @ 50 mls/hr Q2H IV 05/20/25 04:45 05/20/25 10:44 DC 05/20/25 10:22 Vancomycin HCl 250 ml @ 200 mls/hr Q12H IV 05/20/25 12:00 05/20/25 12:14 Vital Signs Vital Signs Date Time Temp Pulse Resp B/P (MAP) Pulse Ox O2 Delivery O2 Flow Rate FiO2 05/20/25 22:45 98 27 101/51 (68) 94 05/20/25 22:00 40 05/20/25 22:00 Mechanical Ventilator+ 05/20/25 20:00 99.2 99.2 05/19/25 10:00 0 Physical Exam Gen.: Patient lying in bed in medical ICU. Intubated on mechanical ventilator. Head: Normocephalic, atraumatic. Eyes: PERRLA. Ears: Normal external anatomy. Throat: Endotracheal tube and orogastric tube in place. Neck: Supple, trachea midline. Chest: Transmitted breath sounds bilaterally. Decreased air entry bilaterally. No wheezing. Bibasilar crackles. Cardiovascular: Positive S1, positive S2. Regular rate and rhythm. Abdomen: Positive bowel sounds in all 4 quadrants. Soft, nontender, nondistended. : Crespo in place. Normal external genitalia. Rectal: Deferred. Skin: Warm, dry. Intact. Extremities: 2+ radial pulses bilaterally. No lower extremity edema. Neuro: Off sedation Labs/Diagnostic Data Labs Test 05/20/25 17:37 05/20/25 06:58 05/20/25 02:53 05/19/25 23:01 Range/Units POC Glucose 150 H 70-106 mg/dl Blood Gas Specimen Type Arterial Blood Gas Sample Site Right radial Blood Gas Patient Temperature 37.0 Arterial Blood Date Drawn [id number] Arterial Blood pH 7.448 7.350-7.450 Arterial Blood Partial Pressure CO2 38.0 32.0-45.0 mmHg Arterial Blood Partial Pressure O2 81.8 L 83.0-108.0 mmHg Arterial Blood HCO3 25.7 21.0-28.0 mmol/L Arterial Blood Oxygen Saturation 96.1 94.0-98.0 % Arterial Blood Base Excess 1.8 -2.0-3.0 mmol/L Arterial Blood Oxyhemoglobin 95.6 94.0-98.0 % Arterial Blood Carboxyhemoglobin 0.3 L 0.5-1.5 % Arterial Blood Methemoglobin 0.2 0.0-1.5 % Bulmaro Test Modified Blood Gas Total Hemoglobin 13.00 12.0-16.0 g/dL Blood Gas Set Respiration Rate 26.0 Blood Gas Modality Vent - ac FiO2 % 30.0 Blood Gas Tidal Volume 400.0 Blood Gas PEEP or CPAP 5.0 White Blood Count 10.8 4.4-10.8 10^3/uL Red Blood Count 3.86 L 4.0-5.20 10^6/uL Hemoglobin 12.2 12.2-16.2 g/dL Hematocrit 35.8 L 36.0-46.0 % Mean Corpuscular Volume 92.7 80.0-100.0 fL Mean Corpuscular Hemoglobin 31.5 28.0-32.0 pg Mean Corpuscular Hemoglobin Concent 34.0 32.0-36.0 g/dL Red Cell Distribution Width 13.3 11.8-14.3 % Platelet Count 243 140-450 10^3/uL Mean Platelet Volume 8.5 6.9-10.8 fL Neutrophils (%) (Auto) 76.8 37.0-80.0 % Lymphocytes (%) (Auto) 15.8 10.0-50.0 % Monocytes (%) (Auto) 5.6 0.0-12.0 % Eosinophils (%) (Auto) 1.5 0.0-7.0 % Basophils (%) (Auto) 0.3 0.0-2.0 % Neutrophils # (Auto) 8.3 1.6-8.6 10 ^3/uL Lymphocytes # (Auto) 1.7 0.4-5.4 10 ^3/uL Monocytes # (Auto) 0.6 0-1.3 10 ^3/uL Eosinophils # (Auto) 0.2 0-0.8 10 ^3/uL Basophils # (Auto) 0 0-0.2 10 ^3/uL Nucleated Red Blood Cells 0.0 % Sodium Level 143 136-145 mmol/L Potassium Level 3.2 L 3.5-5.1 mmol/L Chloride Level 109 H 98-107 mmol/L Carbon Dioxide Level 27 20-31 mmol/L Anion Gap 7 5-15 Blood Urea Nitrogen 9 9-23 mg/dL Creatinine 0.74 0.550-1.02 mg/dL Glomerular Filtration Rate Calc 100 >90 mL/min BUN/Creatinine Ratio 12.2 10.0-20.0 Serum Glucose 160 H 74-106 mg/dL Calcium Level 8.5 L 8.7-10.4 mg/dL Magnesium Level 2.0 1.6-2.6 mg/dL Total Bilirubin 0.3 0.2-1.0 mg/dL Aspartate Amino Transferase (AST) 41 H 13-40 U/L Alanine Aminotransferase (ALT) 51 H 7-40 U/L Alkaline Phosphatase 158 H 46-116 U/L Total Protein 6.0 5.7-8.2 g/dL Albumin 3.4 3.2-4.8 g/dL Vancomycin Level Trough 7.9 5-10 ug/mL Test 05/19/25 14:36 05/19/25 03:00 05/18/25 15:33 05/18/25 12:00 Range/Units Uric Acid 1.3 L 3.1-7.8 mg/dL Phosphorus Level 2.0 L 2.4-5.1 mg/dL Troponin I High Sensitivity 18 </=34 ng/L Ammonia 23 11-32 umol/L Creatine Kinase 1273 H 34-145 U/L B-Type Natriuretic Peptide 17.27 0-100 pg/mL Thyroid Stimulating Hormone (TSH) 14.28 H 0.55-4.78 uIU/mL Free Thyroxine (T4) Calculated 0.72 L 0.89-1.76 ng/dL Total Triiodothyronine (TT3) 1.17 0.60-1.81 ng/mL Influenza Type A Antigen Negative Negative Influenza Type B Antigen Negative Negative SARS-CoV-2 Antigen (Rapid) Negative NEGATIVE Lactic Acid Level 1.1 0.4-2.0 mmol/L Test 05/18/25 10:31 05/18/25 03:00 05/17/25 16:33 05/17/25 13:10 Range/Units Erythrocyte Sedimentation Rate 30 H 0-20 mm/hr C-Reactive Protein High Sensitivity 17.92 H <1.0 mg/dL Beta HCG, Quantitative 0.2 L 1.5-4.2 mIU/mL Random Vancomycin Level 20.1 H 5-10 ug/mL Plasma/Serum Blood Alcohol < 3.0 <10 mg/dL Differential Total Cells Counted 100.0 100 Neutrophils % (Manual) 66 37.0-80.0 Band Neutrophils % (Manual) 24 Lymphocytes % (Manual) 3 L 10.0-50.0 Monocytes % (Manual) 6 0-12 Eosinophils % (Manual) 0 0-7 Basophils % (Manual) 0 0.0-2.0 Metamyelocytes % (manual) 0 Myelocytes % (Manual) 0 Promyelocytes % (Manual) 0 Blast Cells % (Manual) 0 Reactive Lymphocytes 1 Platelet Estimate Adequate Urine Color Red H Yellow Urine Clarity Ex.turbid Clear Urine pH 6.0 5.0-9.0 Urine Specific [place] 1.015 1.001-1.035 Urine Protein 2+ H Negative Urine Ketones Negative Negative Urine Blood 3+ H Negative /uL Urine Nitrite Negative Negative Urine Bilirubin Negative Negative Urine Urobilinogen Normal Negative mg/dL Urine Leukocyte Esterase 3+ Negative /uL Urine RBC 68190 0 - 4 /hpf Urine Microscopic WBC 1039 H 0-5 /HPF Urine Squamous Epithelial Cells None seen <5 /hpf Urine Bacteria None seen None Seen /hpf Urine Mucus Few None Seen Urine Glucose 1+ H Normal mg/dL Urine Opiates Screen Neg NEGATIVE Urine Fentanyl Screen Neg NEGATIVE Urine Barbiturates Screen Neg NEGATIVE Urine Phencyclidine Screen Neg NEGATIVE Urine Amphetamines Screen Pos NEGATIVE Urine Benzodiazepines Screen Pos NEGATIVE Urine Cocaine Screen Neg NEGATIVE Urine Cannabinoids Screen Neg NEGATIVE Test 05/17/25 12:33 05/17/25 09:34 Range/Units Blood Gas Critical Value Read Back Yes Blood Gas Notified Whom arnel Garcia Blood Gas Notified Time [id number] Blood Gas Notified By [place] Supervisor rand daley Prothrombin Time 11.2 9.3-11.8 sec Prothrombin Time INR 1.06 0.9-1.15 Activated Partial Thromboplast Time 25.4 24.5-34.5 SEC Hemoglobin A1c 8.7 H <5.7 % A1C Microbiology Date/Time Source Procedure Growth Status 05/19/25 13:20 Nose MRSA Screen - Final Complete 05/17/25 13:10 Urine - Catheterized Urine Culture - Final Proteus mirabilis Complete 05/17/25 09:45 Blood Blood Culture - Preliminary NO GROWTH AFTER 72 HOURS OF INCUBATION. Resulted 05/17/25 09:32 Sputum Expectorated Sputum Gram Stain Pending Resulted 05/17/25 09:32 Sputum Expectorated Sputum Respiratory Culture - Preliminary Resulted Assessment Impression: Acute hypoxic respiratory failure On mechanical ventilator Metabolic encephalopathy Aspiration pneumonia Morbid Obesity, BMI 41.1 Plan: s/p intubation on mechanical ventilator. ABG reviewed, notable for alkalemia On AC mode; RR 26 -->20, VT 400, PEEP 5, FiO2 30% Titrate FIO2 to keep O2 saturation above 90%. VAP bundle. Daily ABG and CXR while intubated Off sedation Head of bed elevation Aspiration precautions Continue bronchodilators. Continue antibiotics. F/u cultures. Pressors as necessary for hemodynamic support Titrate to keep mean arterial pressure greater than 65 mmHg. Monitor renal function Monitor electrolytes. Supplement as necessary. Monitor ins and outs. Supplement K, K phos Magnesium at goal Maintain euvolemia. Plan for CPAP once patient is awake, alert and following commands. Diet and lifestyle modifications for weight reduction Obesity complicates all care GI prophylaxis. DVT prophylaxis. Prognosis: Poor given patient's multiple co-morbidities. Condition: Critical Rest of plan per hospitalist and other consultants. A total of 35 minutes of critical care time was spent reviewing the patient record, examining the patient, making a diagnostic and therapeutic plan, discussing this plan with the medical personnel, following up on diagnostic studies and following the patient for clinical stability excluding any and all procedures. At least 50% of this time was spent in direct, [id number] contact. Thank you, Dr. Roger, for allowing me to participate in this patient's care. Further recommendations will depend on the patient's clinical course. Please do not hesitate to contact me if you have any questions or concerns. This medical document was created using an electronic medical record system with [employer] computerized dictation system. Although these documentations are being carefully reviewed, there may still be some phonetic and typographical changes. The errors are purely typographical, due to imperfection on the software program, and do not reflect any compromise in the patient's medical care. Plan discussed with: Other (HARDEEP Nix/Dr. Roger) QUINN MACDONALD MD May 20, 2025 23:14
[2025-05-21] VITALS (106 sets, daily range): BP systolic 84–136; BP diastolic 43–99; PULSE 72–102; RESP 14–48; TEMP 97.9–100.2; O2SAT 90–100
[2025-05-21 04:06] LABS: Hematocrit 35.4 % (36.0-46.0); Hemoglobin 12.1 g/dL (12.2-16.2); Mean Corpuscular Hemoglobin 31.7 pg (28.0-32.0); Mean Corpuscular Volume 92.4 fL (80.0-100.0); Nucleated Red Blood Cells % 0.0 %
[2025-05-21 05:12] LABS: Alanine Aminotransferase 39 U/L (7-40); Albumin 3.6 g/dL (3.2-4.8); Anion Gap 9 (5-15); BUN/Creatinine Ratio 14.7 (10.0-20.0); Blood Urea Nitrogen 10 mg/dL (9-23); Carbon Dioxide 28 mmol/L (20-31); Chloride 106 mmol/L (98-107); Potassium 3.8 mmol/L (3.5-5.1); Sodium 143 mmol/L (136-145); Total Protein 6.3 g/dL (5.7-8.2)
[2025-05-21 05:21] LABS: Alkaline Phosphatase 150 U/L (46-116); Bilirubin, Total 0.2 mg/dL (0.2-1.0); Calcium 8.5 mg/dL (8.7-10.4); Glucose 152 mg/dL (74-106)
[2025-05-21 07:11] LABS: Base Excess 4.1 mmol/L (-2.0-3.0)
--- NOTE | 2025-05-21 07:44 | DVH ---
CHEST RADIOGRAPH Indication: INTUBATED Technique: Single frontal view of the chest was obtained COMPARISON: XY CHEST XRAY 1 VIEW on DOS: 05/20/25, XY CHEST XRAY 1 VIEW on DOS: 05/19/25, XY CHEST PORT ABLE on DOS: 05/18/25, XY CHEST PORTABLE on DOS: 05/17/25, XY CHEST XRAY 1 VIEW on DOS: 05/20/25 FINDINGS: Lines and Tubes: Endotracheal tube, enteric catheter and right central venous catheter in satisfactor y position Lungs: Congestion Pleura: No effusion. No pneumothorax. Cardiomediastinal contours: Cardiomegaly Bones: Unremarkable IMPRESSION: Lines and tubes in satisfactory position. No significant interval change.
--- NOTE | 2025-05-21 10:00 | DVHPN2 ---
Subjective This is a 49-year-old female with diabetes mellitus uncontrolled, possible history of drug use, hypertension on amlodipine who was BIBA to the ER as she was found unresponsive at her house, patient received 2 doses of [place] IM and IV, 2 mg and 1 mg followed which he vomited once, on arrival to the ER, pH was 7.22, CO2 60, bicarb 24 and patient was not able to protect her airway therefore she was intubated 05/17 around 9:00 a.m. Patient was febrile at 1:02 a.m. 0.4, white cell 21 with 85% neutrophils, Crespo was placed which past gross hematuria, urology was consulted, recommended continuous bladder irrigation with clear the urine. UA showed 3+ esterase, nitrites were negative, 1039 WBCs. UDS positive for amphetamines and benzodiazepines. CT abdomen completed, showed nonobstructive left renal feel stone, left lower lobe /consolidation. Per nurse, patient had some residual food in her mouth. Patient was started on IV vancomycin and cefepime, cefepime was switched to meropenem 05/18 given the risk of ESBL. Head CT negative [facility] RECORDS REVIEWED: Patient was admitted to [facility] 02/17 - 02/20 ?AMA for Sepsis d/t perineal abcess, R labial abcess 10x4x8 mm s/p I&d 02/18 and vanc+zosyn+clinda, new T2DM A1C 13.4, BMI 51, HTN, meth use, hepatic stetosis, cholelithiasis, subserosal fibroid, polyglandular endocrinopathy. Abcess grew MRSA tsh was 17.6, normal free T4, fT3 1.39 (LOW), TPO antibody >600, unremarkable thyroid US 02/19/25 Social history: Per son, patient smokes, does not drink anymore, Patient has a son who lives with her grand mom in [place], who talked to the patient for 5 days back. Daughter lives in [place]. Patient currently lives with her boyfriend Koko. 05/18 - Patient seen and examined in 110. On propofol and Versed. AKA is resolving, electrolytes replenish. Cefepime switched to meropenem for ESBL coverage, duo nebs started q.6 hourly. Cultures preliminary negative. 05/19 - off sedation 9:30AM, demetrius well, low fever 100F, pt grimaces to painful stimuli 05/20: Patient is getting sedation vacation trial, not really responding or following commands. Has some spontaneous movements of head, brainstem reflexes intact. Appears euvolemic. Intubated sedated/sedation vacation right now, ventilated settings a.c./20/4 100/30%/5.0, she has OG tube getting trickle feeds, drips include Versed 1 propofol 10. CBI no further bleed trickle rate for CVA currently. We will continue primary team's management otherwise. Patient does well on sedation vacation tomorrow we can try CPAP trial. Currently patient is not doing well likely we will retry sedation vacation tomorrow. 05/21: This a.m. x-ray has significant opacities, patient has history of smoking. We will start Solu-Medrol 40 IV b.i.d.. We will hold off giving further fluids given concern of possible ARDS. Patient has no history of CHF. Patient is making good urine output appears euvolemic drips include Versed 7, propofol 25. Ventilated settings a.c./20/4 100/30%/5.0. Vitals are stable, no vasopressors. Reviewed: Care Plan Changes from previous H/P or p: No Changes General: Per HPI Objective Vitals Vital Signs Date Time Temp Pulse Resp B/P (MAP) Pulse Ox O2 Delivery O2 Flow Rate FiO2 05/21/25 09:50 88 27 112/60 (77) 94 30 05/21/25 08:00 Mechanical Ventilator+ 05/21/25 06:45 99.8 99.8 05/19/25 10:00 0 Intake/Output Intake and Output 05/21/25 07:00 Intake Total 2455.867 ml Output Total 3425 ml Balance -969.133 ml Intake Oral 75 ml IV Total 2125.867 ml Tube Feeding 255 ml Output Urine Total 3425 ml # Bowel Movements 2 Exam General: Morbidly obese, low-grade fever, palor, mucosae are moist Cardiovascular: Regular S1 and S2. No murmurs, gallops or rubs. No JVD elevation. 1+ bilateral pitting edema Respiratory: No whhezing, coarse crackles on the left lateral side. Mechanically ventilated on 30% FiO2. Abdomen: Soft, hypoactive, slightly distended bowel sounds, no rebound tenderness, no organomegaly, no masses Genitourinary: Crespo seen draining dark yellow urine, clearing up MSK/skin: Skin dry and warm Neurological: Pupils are isocoric and reactive. Medications Current Medications Medications Dose Ordered Sig/Hannah Route Start Time Stop Time Status Last Admin Dose Admin Midazolam HCl 50 ml @ 1 mls/hr Q24H IV 05/17/25 09:30 05/21/25 08:14 7 MLS/HR Propofol 100 ml @ 2.319 mls/ hr Q24H IV 05/17/25 13:00 05/21/25 08:15 11.595 MLS/HR Ondansetron HCl 4 mg Q4HP PRN IV 05/17/25 15:30 Nitroglycerin 0.4 mg Q5MINP PRN SL 05/17/25 15:30 Vancomycin HCl 0 ml @ 0 mls/hr UD IV 05/17/25 17:00 Diagnostic Test (Pha) 1 strip Q6HR 05/17/25 18:00 05/21/25 05:50 1 STRIP Insulin Human Regular Q6HR SC 05/17/25 18:00 05/21/25 05:49 2 UNITS Dextrose 50 ml UD PRN IV 05/17/25 17:00 Ipratropium Depue 0.5 mg Q6HR NEB 05/18/25 08:15 05/21/25 06:00 0.5 MG Albuterol 2.5 mg Q6HR NEB 05/18/25 08:15 05/21/25 06:00 2.5 MG Thiamine HCl 100 mg DAILY IV 05/18/25 08:30 05/21/25 09:19 100 MG Folic Acid 1 mg/ Dextrose 50.2 ml @ 200.8 mls/ hr DAILY INJ 05/18/25 08:30 05/21/25 09:19 200.8 MLS/HR Pantoprazole Sodium 40 mg DAILY IV 05/19/25 10:00 05/21/25 09:19 40 MG Meropenem 50 ml @ 17 mls/hr Q8HR IV 05/18/25 14:00 05/21/25 05:10 17 MLS/HR Lactated Ringer's 1,000 ml @ 75 mls/hr [id number] IV 05/18/25 12:30 Hold 05/18/25 23:49 75 MLS/HR Enteral Nutritional Formula 1,000 ml 40ML/HR PO 05/18/25 14:00 05/21/25 05:45 1,000 ML Ibuprofen 600 mg Q6HP PRN GT 05/19/25 11:30 05/19/25 22:33 600 MG Lactulose 30 ml DAILY PO 05/20/25 10:00 Levothyroxine Sodium 150 mcg QAM@0600 PO 05/20/25 06:00 05/21/25 05:10 150 MCG Docusate Sodium 100 mg DAILY PRN GT 05/19/25 23:45 05/19/25 23:56 100 MG Vancomycin HCl 250 ml @ 200 mls/hr Q12H IV 05/20/25 12:00 05/21/25 00:02 200 MLS/HR Purified Water 200 ml Q12HR GT 05/21/25 10:00 UNV Methylprednisolone Sodium Succinate 40 mg BID IV 05/21/25 10:00 UNV Laboratory Results Laboratory Tests 05/21/25 03:20 Chemistry Test 05/21/25 03:20 Albumin 3.6 g/dL (3.2-4.8) Calcium Level 8.5 mg/dL (8.7-10.4) L Phosphorus Level 3.5 mg/dL (2.4-5.1) Total Protein 6.3 g/dL (5.7-8.2) LFT Test 05/21/25 03:20 Alanine Aminotransferase (ALT) 39 U/L (7-40) Alkaline Phosphatase 150 U/L (46-116) H Aspartate Amino Transferase (AST) 28 U/L (13-40) Total Bilirubin 0.2 mg/dL (0.2-1.0) Urinalysis Test 05/17/25 13:10 Urine Color Red (Yellow) H Urine Clarity Ex.turbid (Clear) Urine pH 6.0 (5.0-9.0) Urine Specific [place] 1.015 (1.001-1.035) Urine Protein 2+ (Negative) H Urine Ketones Negative (Negative) Urine Blood 3+ /uL (Negative) H Urine Nitrite Negative (Negative) Urine Bilirubin Negative (Negative) Urine Urobilinogen Normal mg/dL (Negative) Urine Leukocyte Esterase 3+ /uL (Negative) Urine RBC 10295 /hpf (0 - 4) Urine Microscopic WBC 1039 /HPF (0-5) H Urine Squamous Epithelial Cells None seen /hpf (<5) Urine Bacteria None seen /hpf (None Seen) Urine Mucus Few (None Seen) Urine Glucose 1+ mg/dL (Normal) H Blood Gas Results Test 05/21/25 06:25 Arterial Blood pH 7.440 (7.350-7.450) FiO2 % 30.0 Microbiology Microbiology Date/Time Source Procedure Growth Status 05/19/25 13:20 Nose MRSA Screen - Final Complete 05/17/25 13:10 Urine - Catheterized Urine Culture - Final Proteus mirabilis Complete 05/17/25 09:45 Blood Blood Culture - Preliminary NO GROWTH AFTER 72 HOURS OF INCUBATION. Resulted 05/17/25 09:32 Sputum Expectorated Sputum Gram Stain Pending Resulted 05/17/25 09:32 Sputum Expectorated Sputum Respiratory Culture - Preliminary Resulted Labs and/or images reviewed: Labs reviewed by me, Image(s) reviewed by me Assessment/Plan Assessment/Plan NEURO: Acute metabolic encephalopathy secondary to sepsis and drug intoxication/seizure/stroke Possible drug intoxication Benzo and meth use dependence UDS positive for benzodiazepines and methamphetamine CT head negative Ammonia wnl CARDIOVASCULAR: Sepsis likely Gram-positive and Gram-negative pneumonia and UTI Lactic acidosis HTN Blood pressure currently adequately controlled without antihypertensives IV vancomycin 05/17 and IV meropenem 05/18 for ESBL coverage Echo completed, shows 55% EF PULMONARY: Acute hypercapnic resp failure s/p intubation05/17 Sepsis likely Gram-positive and Gram-negative pneumonia Likely aspiration pneumonia Blood culture/respiratory culture/urine culture pending MRSA nares/COVID and flu pending Left lower lobe opacification and infiltration ESR 30, CRP 17 GASTRO: Transamnitis hepatic stetosis Hx of cholelithiasis Likely metabolic steatosis Continue monitoring LFTs GENITOURINARY: Gross hematuria Nonobstructive curvilinear left renal caliceal stone ?complicated cystitis Early rhabdomyolysis Urology on board-recommended continuous bladder irrigation, urine clearing up IV vancomycin and IV meropenem IV LR 75 cc/hour CK uptrending METABOLIC: Uncontrolled T2DM - A1C 8.7 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 Obesity Mild ISS, Lantus 5 HS TSH 14, free T4 0.72, total T3 1.17, TPO antibody >600 at [facility] per records Levothyroxine 1.6mcg/kg = 150mcg 6AM daily INFECTIOUS DISEASE: Gram-positive and Gram-negative pneumonia Sepsis due to above ?complicated cystitis Hx of sepsis with R perineal abcess s/p I&D 02/19 Pancultures pending OBGYN Hx of sepsis with R perineal abcess s/p I&D 02/19 subserosal fibroid -White Discharge noted, culture, gono/chlam pending Tube feeding Glucerna 40 cc/hour, nutritional consult pending 05/10 DIET: DVT prophylax: SCDs given hematuria GI prophylaxis: Protonix 40 mg IV daily Bowel regimen: Lactulose daily Code status: Full code LINES/DRAINS/ACCESS: IV access: R IJ 05/17 Drips: Versed, Propofol Crespo catheter: 05/17 DISPOSITION: ICU Plan discussed with: Other My Orders Orders - SHANE BARRERA MD Procedure Category Date Status Time Communication Order ORDERS 05/20/25 Transmitted 10:15 Abg W/ Co-Ox RT 05/21/25 Logged 04:00 Chest Xray 1 View XY 05/21/25 Resulted 04:00 Abg W/ Co-Ox RT 05/21/25 Logged 06:00 Free Water PHA 05/21/25 Logged 10:00 Methylprednisolone PHA 05/21/25 Logged Sod Succ (Solu Medrol 10:00 Date of Service: May 21, 2025 Billing Provider: SHANE BARRERA MD Common Visit Codes: 24159-[id number] CARE 30-74 MIN SHANE BARRERA MD May 21, 2025 10:00
[2025-05-21] MEDS: FREE WATER GT SCH (10:16)
[2025-05-21] MEDS: methylPREDNISolone SOD SUCC 40 MG/ML VL IV SCH (10:16)
[2025-05-21] MEDS: GLYCOPYRROLATE 0.2 MG/ML 1ML VIAL IV ONE (11:52)
[2025-05-21] MEDS: FUROSEMIDE 20 MG/2 ML VIAL IV ONE (11:52)
[2025-05-21] MEDS: NOREPINEPHRINE 8 MG/250ML KIT 250 ML IV SCH (16:50)
--- NOTE | 2025-05-21 23:09 | DVHPN2 ---
Progress Note - Dictate Date Seen: May 21, 2025 Medical Necessity Reason Pt with a Central, PICC or Fol: Yes The following are medically ne: Central Line, Crespo Catheter Subjective Patient seen and examined at bedside. Sedated, intubated on mechanical ventilator. Overnight events reviewed. vital signs Vital Sign Date Time Temp Pulse Resp B/P (MAP) Pulse Ox O2 Delivery O2 Flow Rate FiO2 05/21/25 22:25 134/69 05/21/25 22:15 99.7 92 23 96 211.5 05/21/25 22:05 30 05/21/25 22:00 Mechanical Ventilator+ 05/19/25 10:00 0 Total Intake and Output 05/20/25 05/20/25 05/21/25 15:00 23:00 07:00 Intake Total 492.266 ml 877.031 ml 1105.165 ml Output Total 1600 ml 1825 ml Balance 492.266 ml -722.969 ml -719.835 ml medications Current Medications Medications Dose Ordered Sig/Hannah Route Start Time Stop Time Status Last Admin Dose Admin Midazolam HCl 50 ml @ 1 mls/hr Q24H IV 05/17/25 09:30 05/21/25 19:55 10 MLS/HR Propofol 100 ml @ 2.319 mls/ hr Q24H IV 05/17/25 13:00 05/21/25 19:55 13.914 MLS/HR Ondansetron HCl 4 mg Q4HP PRN IV 05/17/25 15:30 Nitroglycerin 0.4 mg Q5MINP PRN SL 05/17/25 15:30 Vancomycin HCl 0 ml @ 0 mls/hr UD IV 05/17/25 17:00 Diagnostic Test (Pha) 1 strip Q6HR 05/17/25 18:00 05/21/25 17:27 1 STRIP Insulin Human Regular Q6HR SC 05/17/25 18:00 05/21/25 17:26 4 UNITS Dextrose 50 ml UD PRN IV 05/17/25 17:00 Ipratropium Daisy 0.5 mg Q6HR NEB 05/18/25 08:15 05/21/25 18:13 0.5 MG Albuterol 2.5 mg Q6HR NEB 05/18/25 08:15 05/21/25 18:13 2.5 MG Thiamine HCl 100 mg DAILY IV 05/18/25 08:30 05/21/25 09:19 100 MG Folic Acid 1 mg/ Dextrose 50.2 ml @ 200.8 mls/ hr DAILY INJ 05/18/25 08:30 05/21/25 09:19 200.8 MLS/HR Pantoprazole Sodium 40 mg DAILY IV 05/19/25 10:00 05/21/25 09:19 40 MG Meropenem 50 ml @ 17 mls/hr Q8HR IV 05/18/25 14:00 05/21/25 21:57 17 MLS/HR Lactated Ringer's 1,000 ml @ 75 mls/hr [id number] IV 05/18/25 12:30 Hold 05/18/25 23:49 75 MLS/HR Enteral Nutritional Formula 1,000 ml 40ML/HR PO 05/18/25 14:00 05/21/25 05:45 1,000 ML Ibuprofen 600 mg Q6HP PRN GT 05/19/25 11:30 05/19/25 22:33 600 MG Lactulose 30 ml DAILY PO 05/20/25 10:00 Levothyroxine Sodium 150 mcg QAM@0600 PO 05/20/25 06:00 05/21/25 05:10 150 MCG Docusate Sodium 100 mg DAILY PRN GT 05/19/25 23:45 05/19/25 23:56 100 MG Vancomycin HCl 250 ml @ 200 mls/hr Q12H IV 05/20/25 12:00 05/21/25 11:52 200 MLS/HR Purified Water 200 ml Q12HR GT 05/21/25 10:00 05/21/25 21:58 200 ML Methylprednisolone Sodium Succinate 40 mg BID IV 05/21/25 10:00 05/21/25 21:57 40 MG Norepinephrine Bitartrate 250 ml @ 3.75 mls/hr Q24H IV 05/21/25 16:00 05/21/25 16:50 3.75 MLS/HR objective Gen.: Patient lying in bed in medical ICU. Sedated, intubated on mechanical ventilator. Head: Normocephalic, atraumatic. Eyes: PERRLA. Ears: Normal external anatomy. Throat: Endotracheal tube and orogastric tube in place. Neck: Supple, trachea midline. Chest: Transmitted breath sounds bilaterally. Decreased air entry bilaterally. No wheezing. Bibasilar crackles. Cardiovascular: Positive S1, positive S2. Regular rate and rhythm. Abdomen: Positive bowel sounds in all 4 quadrants. Soft, nontender, nondistended. : Crespo in place. Normal external genitalia. Rectal: Deferred. Skin: Warm, dry. Intact. Extremities: 2+ radial pulses bilaterally. No lower extremity edema. Neuro: Sedated. laboratory and microbiology Laboratory Tests 05/21/25 03:20 Test 05/21/25 03:20 Range/Units Serum Glucose 152 H 74-106 mg/dL Assessment/Plan Impression: Acute hypoxic respiratory failure On mechanical ventilator Metabolic encephalopathy Aspiration pneumonia Morbid Obesity, BMI 41.1 Events: Remains on vent support On AC mode; RR 20, VT 400, PEEP 8, FiO2 30% Taper FiO2 as tolerated. PEEP was increased to 8 due to congestion. Lasix 20 mg IVP x1 given ABG reviewed, compensated Glycopyrrolate for increased oral secretions. Sedated on Propofol, Versed. Continue antibiotics IV steroids Increased ET tube secretions. Pulmonary toileting Protonix for GI prophylaxis Taper sedation as tolerated Plan for CPAP with PS 8, PEEP of 5 once patient is awake, alert and following commands. Labs and imaging reviewed. Rest of plan as noted below. Plan: s/p intubation on mechanical ventilator. On AC mode; RR 20, VT 400, PEEP 8, FiO2 30% Titrate FIO2 to keep O2 saturation above 90%. VAP bundle. Daily ABG and CXR while intubated Sedated for vent synchrony Head of bed elevation Aspiration precautions Continue bronchodilators. Continue antibiotics. F/u cultures. Pressors as necessary for hemodynamic support Titrate to keep mean arterial pressure greater than 65 mmHg. Monitor renal function Monitor electrolytes. Supplement as necessary. Monitor ins and outs. Maintain euvolemia. Plan for CPAP once patient is awake, alert and following commands. Diet and lifestyle modifications for weight reduction Obesity complicates all care GI prophylaxis. DVT prophylaxis. Prognosis: Poor given patient's multiple co-morbidities. Condition: Critical Rest of plan per hospitalist and other consultants. A total of 35 minutes of critical care time was spent reviewing the patient record, examining the patient, making a diagnostic and therapeutic plan, discussing this plan with the medical personnel, following up on diagnostic studies and following the patient for clinical stability excluding any and all procedures. At least 50% of this time was spent in direct, [id number] contact. Thank you, Dr. Roger, for allowing me to participate in this patient's care. Further recommendations will depend on the patient's clinical course. Please do not hesitate to contact me if you have any questions or concerns. This medical document was created using an electronic medical record system with schoox dictation system. Although these documentations are being carefully reviewed, there may still be some phonetic and typographical changes. The errors are purely typographical, due to imperfection on the software program, and do not reflect any compromise in the patient's medical care. Dietary Evaluation Review Comments: 1) Continue Glucerna 1.2 @ 40 mL/hr goal rate as tolerated 2) Advance to 60g CCHO cardiac diet when medically feasible, pending ST approval 3) Refer to outpatient RD/CDCES for diabetes education and weight management 4) Follow-up with social welfare clerk r/t polysubstance abuse 5) Continue to monitor I&O, labs, and skin integrity Expected Outcomes/Goals: 1) labs to improve 2) diet to advance 3) f/u in 2-3 days Plan discussed with: Other (HARDEEP Estevez) Critical Care Time(min): 35 QUINN MACDONALD MD May 21, 2025 23:09
[2025-05-22] VITALS (107 sets, daily range): BP systolic 59–144; BP diastolic 41–113; PULSE 66–110; RESP 8–32; TEMP 94.3–100.2; O2SAT 89–100
[2025-05-22 04:09] LABS: Alanine Aminotransferase 36 U/L (7-40); Albumin 4.1 g/dL (3.2-4.8); Anion Gap 10 (5-15); BUN/Creatinine Ratio 23.9 (10.0-20.0); Blood Urea Nitrogen 17 mg/dL (9-23); Calcium 9.0 mg/dL (8.7-10.4); Carbon Dioxide 28 mmol/L (20-31); Potassium 4.6 mmol/L (3.5-5.1); Sodium 136 mmol/L (136-145); Total Protein 7.2 g/dL (5.7-8.2)
[2025-05-22 04:10] LABS: Hematocrit 37.5 % (36.0-46.0); Hemoglobin 12.9 g/dL (12.2-16.2); Mean Corpuscular Hemoglobin 31.8 pg (28.0-32.0); Mean Corpuscular Volume 92.5 fL (80.0-100.0); Nucleated Red Blood Cells % 0.1 %
[2025-05-22 04:32] LABS: Alkaline Phosphatase 157 U/L (46-116); Bilirubin, Total 0.2 mg/dL (0.2-1.0); Chloride 98 mmol/L (98-107); Glucose 286 mg/dL (74-106)
--- NOTE | 2025-05-22 05:59 | DVH ---
CHEST RADIOGRAPH Indication: RESPIRATORY FAILURE Technique: Single frontal view of the chest was obtained COMPARISON: XY CHEST XRAY 1 VIEW on DOS: 05/21/25, XY CHEST XRAY 1 VIEW on DOS: 05/20/25, XY CHEST XRAY 1 VIEW on DOS: 05/19/25, XY CHEST PORTABLE on DOS: 05/18/25, XY CHEST PORTABLE on DOS: 05/17/25 FINDINGS: Lines and Tubes: Slight interval retraction of the endotracheal tube such that the tip now projects a pproximately 4.5 cm above the level of the hilario. Remaining lines and tubes unchanged. Lungs: Persistent moderate diffuse increased prominence of the pulmonary vasculature. Small left ple ural effusion. Pleura: No effusion. No pneumothorax. Cardiomediastinal contours: Unremarkable Bones: Unremarkable IMPRESSION: 1. Persistent moderate diffuse increased prominence of the pulmonary vasculature. 2. Small left pleural effusion. 3. Cardiomegaly. 4. Slight interval retraction of the endotracheal tube such that the tip now projects approximately 4 .5 cm above the level of the hilario. Remaining lines and tubes unchanged.
[2025-05-22 07:20] LABS: Base Excess 4.5 mmol/L (-2.0-3.0)
[2025-05-22] MEDS: ENOXAPARIN SOD 40 MG/0.4 ML SYRINGE SC SCH (09:49)
[2025-05-22] MEDS: FUROSEMIDE 40 MG/4 ML VIAL IV ONE (09:54)
--- NOTE | 2025-05-22 10:51 | MEDREC ---
[facility] ASP Intervention Section I [facility] ASP Intervention: Deescalate AB based on CS (PLEASE CONSIDER DE-ESCALATION BASED ON CULTURE RESULTS AND SUSCEPTIBILITIES (NO MRSA, NO ESBL)) CARIDAD LANDIN PHARMACIST May 22, 2025 10:51
--- NOTE | 2025-05-22 16:08 | DVHPNRES ---
Progress Note Date Seen: May 22, 2025 Resident Creating Document: LOWELL YOUNGBLOOD RESIDENT Medical Necessity Reason Pt with a Central, PICC or Fol: Yes The following are medically ne: Central Line, Crespo Catheter Subjective Review of Systems This is a 49-year-old female with diabetes mellitus uncontrolled, possible history of drug use, hypertension on amlodipine who was BIBA to the ER as she was found unresponsive at her house, patient received 2 doses of [place] IM and IV, 2 mg and 1 mg followed which he vomited once, on arrival to the ER, pH was 7.22, CO2 60, bicarb 24 and patient was not able to protect her airway therefore she was intubated 05/17 around 9:00 a.m. Patient was febrile at 1:02 a.m. 0.4, white cell 21 with 85% neutrophils, Crespo was placed which past gross hematuria, urology was consulted, recommended continuous bladder irrigation with clear the urine. UA showed 3+ esterase, nitrites were negative, 1039 WBCs. UDS positive for amphetamines and benzodiazepines. CT abdomen completed, showed nonobstructive left renal feel stone, left lower lobe /consolidation. Per nurse, patient had some residual food in her mouth. Patient was started on IV vancomycin and cefepime, cefepime was switched to meropenem 05/18 given the risk of ESBL. Head CT negative [facility] RECORDS REVIEWED: Patient was admitted to [facility] 02/17 - 02/20 ?AMA for Sepsis d/t perineal abcess, R labial abcess 10x4x8 mm s/p I&d 02/18 and vanc+zosyn+clinda, new T2DM A1C 13.4, BMI 51, HTN, meth use, hepatic stetosis, cholelithiasis, subserosal fibroid, polyglandular endocrinopathy. Abcess grew MRSA tsh was 17.6, normal free T4, fT3 1.39 (LOW), TPO antibody >600, unremarkable thyroid US 02/19/25 Social history: Per son, patient smokes, does not drink anymore, Patient has a son who lives with her grand mom in [place], who talked to the patient for 5 days back. Daughter lives in [place]. Patient currently lives with her boyfriend Koko. 05/18 - Patient seen and examined in 110. On propofol and Versed. AKA is resolving, electrolytes replenish. Cefepime switched to meropenem for ESBL coverage, duo nebs started q.6 hourly. Cultures preliminary negative. 05/19 - off sedation 9:30AM, demetrius well, low fever 100F, pt grimaces to painful stimuli 05/20: Patient is getting sedation vacation trial, not really responding or following commands. Has some spontaneous movements of head, brainstem reflexes intact. Appears euvolemic. Intubated sedated/sedation vacation right now, ventilated settings a.c./20/4 100/30%/5.0, she has OG tube getting trickle feeds, drips include Versed 1 propofol 10. CBI no further bleed trickle rate for CVA currently. We will continue primary team's management otherwise. Patient does well on sedation vacation tomorrow we can try CPAP trial. Currently patient is not doing well likely we will retry sedation vacation tomorrow. 05/21: This a.m. x-ray has significant opacities, patient has history of smoking. We will start Solu-Medrol 40 IV b.i.d.. We will hold off giving further fluids given concern of possible ARDS. Patient has no history of CHF. Patient is making good urine output appears euvolemic drips include Versed 7, propofol 25. Ventilated settings a.c./20/4 100/30%/5.0. Vitals are stable, no vasopressors. 05/22 - patient on sedative, and levophed. Sedation vacation and CPAP trial for 2- 3 hrs, demetrius well, resumed sedatives with Propofol at 25, off versed since AM. CPAP tomorrow. Lasix 40 iv once. lantus inc to 10 hs Objective vital signs Vital Sign Date Time Temp Pulse Resp B/P (MAP) Pulse Ox O2 Delivery O2 Flow Rate FiO2 05/22/25 14:03 110 26 115/80 (92) 99 35 05/22/25 14:00 Mechanical Ventilator+ 05/22/25 13:45 99.7 211.5 Total Intake and Output 05/21/25 05/21/25 05/22/25 15:00 23:00 07:00 Intake Total 502.960 ml 670.148 ml 1197.062 ml Output Total 2475 ml 1050 ml Balance 502.960 ml -1804.852 ml 147.062 ml medications Current Medications Medications Dose Ordered Sig/Hannah Route Start Time Stop Time Status Last Admin Dose Admin Midazolam HCl 50 ml @ 1 mls/hr Q24H IV 05/17/25 09:30 05/22/25 00:44 9 MLS/HR Propofol 100 ml @ 2.319 mls/ hr Q24H IV 05/17/25 13:00 05/22/25 04:54 13.914 MLS/HR Ondansetron HCl 4 mg Q4HP PRN IV 05/17/25 15:30 Nitroglycerin 0.4 mg Q5MINP PRN SL 05/17/25 15:30 Vancomycin HCl 0 ml @ 0 mls/hr UD IV 05/17/25 17:00 Diagnostic Test (Pha) 1 strip Q6HR 05/17/25 18:00 05/22/25 11:29 1 STRIP Insulin Human Regular Q6HR SC 05/17/25 18:00 05/22/25 11:29 8 UNITS Dextrose 50 ml UD PRN IV 05/17/25 17:00 Ipratropium [place] 0.5 mg Q6HR NEB 05/18/25 08:15 05/22/25 11:24 0.5 MG Albuterol 2.5 mg Q6HR NEB 05/18/25 08:15 05/22/25 11:24 2.5 MG Thiamine HCl 100 mg DAILY IV 05/18/25 08:30 05/22/25 09:48 100 MG Folic Acid 1 mg/ Dextrose 50.2 ml @ 200.8 mls/ hr DAILY INJ 05/18/25 08:30 05/22/25 09:49 200.8 MLS/HR Pantoprazole Sodium 40 mg DAILY IV 05/19/25 10:00 05/22/25 09:48 40 MG Meropenem 50 ml @ 17 mls/hr Q8HR IV 05/18/25 14:00 05/22/25 13:35 17 MLS/HR Enteral Nutritional Formula 1,000 ml 40ML/HR PO 05/18/25 14:00 05/21/25 05:45 1,000 ML Ibuprofen 600 mg Q6HP PRN GT 05/19/25 11:30 05/19/25 22:33 600 MG Lactulose 30 ml DAILY PO 05/20/25 10:00 05/22/25 09:48 30 ML Levothyroxine Sodium 150 mcg QAM@0600 PO 05/20/25 06:00 05/22/25 04:54 150 MCG Docusate Sodium 100 mg DAILY PRN GT 05/19/25 23:45 05/19/25 23:56 100 MG Purified Water 200 ml Q12HR GT 05/21/25 10:00 Hold 05/21/25 21:58 200 ML Methylprednisolone Sodium Succinate 40 mg BID IV 05/21/25 10:00 05/22/25 09:48 40 MG Norepinephrine Bitartrate 250 ml @ 3.75 mls/hr Q24H IV 05/21/25 16:00 05/21/25 16:50 3.75 MLS/HR Enoxaparin Sodium 40 mg DAILY SC 05/22/25 10:00 05/22/25 09:49 40 MG Insulin Glargine 10 units HS SC 05/22/25 22:00 Vancomycin HCl 250 ml @ 200 mls/hr Q10H IV 05/22/25 17:00 Examination Obese female patient lying in the bed, intubated and sedated, RASS -3, not responding to commands or pain. Right-sided central venous catheter, low fever 100F, pt grimaces to painful stimuli General: Morbidly obese, low-grade fever, palor, mucosae are moist Cardiovascular: Regular S1 and S2. No murmurs, gallops or rubs. No JVD elevation. 1+ bilateral pitting edema Respiratory: No wheezing, coarse crackles on the left lateral side. Mechanically ventilated on 30% FiO2. Abdomen: Soft, normoactive, slightly distended bowel sounds, no rebound tenderness, no organomegaly, no masses Genitourinary: Crespo seen draining dark red in pm MSK/skin: Skin dry and warm Neurological: Pupils are isocoric and reactive. laboratory and microbiology Laboratory Tests 05/22/25 02:40 Test 05/22/25 02:40 Range/Units Serum Glucose 286 H 74-106 mg/dL Microbiology Date/Time Source Procedure Growth Status 05/19/25 13:20 Nose MRSA Screen - Final Complete 05/17/25 13:10 Urine - Catheterized Urine Culture - Final Proteus mirabilis Complete 05/17/25 09:45 Blood Blood Culture - Final NO GROWTH AFTER 5 DAYS OF INCUBATION. Complete 05/17/25 09:32 Sputum Expectorated Sputum Gram Stain - Final Complete 05/17/25 09:32 Respiratory Culture - Final Proteus mirabilis Streptococcus Group C Complete Labs and/or images reviewed: Labs reviewed by me, Image(s) reviewed by me Problem List/Assessment/Plan Problem List/Assessment/Plan NEURO: Acute metabolic encephalopathy secondary to sepsis and drug intoxication/seizure/stroke Possible drug intoxication Benzo and meth use dependence UDS positive for benzodiazepines and methamphetamine CT head negative Ammonia wnl May repeat CT head and consult neuron if pt doesnt wake up CARDIOVASCULAR: Sepsis likely Gram-positive and Gram-negative pneumonia and UTI Lactic acidosis HTN Blood pressure currently adequately controlled without antihypertensives IV vancomycin 05/17 and IV meropenem 05/18 for ESBL coverage Echo completed, shows 55% EF PULMONARY: Acute hypercapnic resp failure s/p intubation05/17 Sepsis likely Gram-positive and Gram-negative pneumonia ARDS and B/L PNEUMONIA Likely aspiration pneumonia Blood culture negative /respiratory culture proetus and strep /urine culture proteus MRSA nares negative /COVID and flu negative Left lower lobe opacification and infiltration ESR 30, CRP 17 Lasix 20 IV 05/21, Lasix 40mg IV 05/22 Solu medrol 40bid 05/21 GASTRO: Transamnitis hepatic stetosis Hx of cholelithiasis Likely metabolic steatosis Continue monitoring LFTs GENITOURINARY: Gross hematuria Nonobstructive curvilinear left renal caliceal stone ?complicated cystitis Early rhabdomyolysis Urology on board-recommended continuous bladder irrigation, DC CBI IV vancomycin and IV meropenem DC IV LR 75 cc/hour CK 153 downtrending Lovenox resumed f/u on hematuria, repeat h&H if gross hematuria and do cbi METABOLIC: Uncontrolled T2DM - A1C 8.7 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 Obesity Mild ISS, Lantus 10 HS TSH 14, free T4 0.72, total T3 1.17, TPO antibody >600 at [facility] per records Levothyroxine 1.6mcg/kg = 150mcg 6AM daily INFECTIOUS DISEASE: Gram-positive and Gram-negative pneumonia Sepsis due to above ?complicated cystitis Hx of sepsis with R perineal abcess s/p I&D 02/19 Blood culture negative /respiratory culture proetus and strep /urine culture proteus OBGYN Hx of sepsis with R perineal abcess s/p I&D 02/19 subserosal fibroid -White Discharge noted, culture, gono/chlam pending Tube feeding Glucerna 40 cc/hour, nutritional consult pending 05/10 DIET: DVT prophylax: Lovenox 40 05/22, SCDs GI prophylaxis: Protonix 40 mg IV daily Bowel regimen: Lactulose daily Code status: Full code LINES/DRAINS/ACCESS: IV access: R IJ 05/17 Drips: Versed off 05/22 AM, Propofol Crespo catheter: 05/17 DISPOSITION: ICU Patient's status discussed with patient's Son/Mom over the phone in which all questions have been answered Critical care time spent more than 63 minutes, including patient care, chart review, and updating the family (son and mother, at bedside) in detail. Excluding any procedures Case discussed with Dr. Saeed Plan discussed with: Patient My Orders My Orders Orders - LOWELL YOUNGBLOOD Procedure Category Date Status Time Enoxaparin Sodium PHA 05/22/25 In Process (Lovenox) 10:00 Insulin Lantus PHA 05/22/25 In Process (Glargine) (Lantus) 22:00 Cpap Trial For Am ORDERS 05/22/25 Transmitted 11:13 Dietary Evaluation Review Comments: 1) Continue Glucerna 1.2 @ 40 mL/hr goal rate as tolerated 2) Advance to 60g CCHO cardiac diet when medically feasible, pending ST approval 3) Refer to outpatient RD/CDCES for diabetes education and weight management 4) Follow-up with hospital social worker r/t polysubstance abuse 5) Continue to monitor I&O, labs, and skin integrity Expected Outcomes/Goals: 1) labs to improve 2) diet to advance 3) f/u in 2-3 days LOWELL YOUNGBLOOD May 22, 2025 16:08
[2025-05-22] MEDS: VANCOMYCIN 1GM/250ML KIT 250 ML IV SCH (16:45)
[2025-05-22] MEDS: INSULIN LANTUS (GLARGINE) 1 /0.01ml (100units/ml) SC SCH (21:31)
[2025-05-23] VITALS (80 sets, daily range): BP systolic 97–159; BP diastolic 42–86; PULSE 71–105; RESP 0–28; TEMP 98–99.5; O2SAT 90–100
[2025-05-23 03:41] LABS: Hematocrit 38.6 % (36.0-46.0); Hemoglobin 13.1 g/dL (12.2-16.2); Mean Corpuscular Hemoglobin 31.1 pg (28.0-32.0); Mean Corpuscular Volume 91.6 fL (80.0-100.0); Nucleated Red Blood Cells % 0.0 %
[2025-05-23 03:52] LABS: Alanine Aminotransferase 31 U/L (7-40); Albumin 4.2 g/dL (3.2-4.8); Anion Gap 11 (5-15); BUN/Creatinine Ratio 32.0 (10.0-20.0); Calcium 9.1 mg/dL (8.7-10.4); Carbon Dioxide 30 mmol/L (20-31); Chloride 98 mmol/L (98-107); Magnesium 2.4 mg/dL (1.6-2.6); Potassium 3.7 mmol/L (3.5-5.1); Sodium 139 mmol/L (136-145); Total Protein 7.3 g/dL (5.7-8.2)
[2025-05-23 03:56] LABS: Alkaline Phosphatase 144 U/L (46-116); Bilirubin, Total 0.2 mg/dL (0.2-1.0); Blood Urea Nitrogen 24 mg/dL (9-23); Glucose 228 mg/dL (74-106)
--- NOTE | 2025-05-23 05:55 | DVH ---
CHEST RADIOGRAPH Indication: f/u on congestion Technique: Single frontal view of the chest was obtained COMPARISON: XY CHEST PORTABLE on DOS: 05/22/25, XY CHEST XRAY 1 VIEW on DOS: 05/21/25, XY CHEST XRAY 1 V IEW on DOS: 05/20/25, XY CHEST XRAY 1 VIEW on DOS: 05/19/25, XY CHEST PORTABLE on DOS: 05/18/25, XY CHES T XRAY 1 VIEW on DOS: 05/21/25 FINDINGS: Lines and Tubes: Endotracheal tube, enteric catheter and right central venous catheter in satisfactor y position Lungs: Congestion Pleura: No effusion. No pneumothorax. Cardiomediastinal contours: Cardiomegaly Bones: Unremarkable IMPRESSION: Lines and tubes in satisfactory position. No significant interval change.
[2025-05-23 07:43] LABS: Base Excess 5.8 mmol/L (-2.0-3.0)
[2025-05-23] MEDS: POTASSIUM EFFERVESENT TAB 25 MEQ GT ONE (09:18)
[2025-05-23] MEDS: FUROSEMIDE 20 MG/2 ML VIAL IV ONE (09:19)
[2025-05-23] MEDS: DEXMEDETOMIDINE HCL IN D5W 100 ML IV SCH (09:53)
[2025-05-23] MEDS: HALOPERIDOL LACTATE 5 MG/ML INJ VIAL IM ONE (11:46)
[2025-05-23 15:08] LABS: Base Excess 5.4 mmol/L (-2.0-3.0)
--- NOTE | 2025-05-23 19:06 | DVHPNRES ---
Progress Note Date Seen: May 23, 2025 Resident Creating Document: LOWELL YOUNGBLOOD RESIDENT Medical Necessity Reason Pt with a Central, PICC or Fol: Yes The following are medically ne: Central Line, Crespo Catheter Subjective Review of Systems This is a 49-year-old female with diabetes mellitus uncontrolled, possible history of drug use, hypertension on amlodipine who was BIBA to the ER as she was found unresponsive at her house, patient received 2 doses of [place] IM and IV, 2 mg and 1 mg followed which he vomited once, on arrival to the ER, pH was 7.22, CO2 60, bicarb 24 and patient was not able to protect her airway therefore she was intubated 05/17 around 9:00 a.m. Patient was febrile at 1:02 a.m. 0.4, white cell 21 with 85% neutrophils, Crespo was placed which past gross hematuria, urology was consulted, recommended continuous bladder irrigation with clear the urine. UA showed 3+ esterase, nitrites were negative, 1039 WBCs. UDS positive for amphetamines and benzodiazepines. CT abdomen completed, showed nonobstructive left renal feel stone, left lower lobe /consolidation. Per nurse, patient had some residual food in her mouth. Patient was started on IV vancomycin and cefepime, cefepime was switched to meropenem 05/18 given the risk of ESBL. Head CT negative [facility] RECORDS REVIEWED: Patient was admitted to [facility] 02/17 - 02/20 ?AMA for Sepsis d/t perineal abcess, R labial abcess 10x4x8 mm s/p I&d 02/18 and vanc+zosyn+clinda, new T2DM A1C 13.4, BMI 51, HTN, meth use, hepatic stetosis, cholelithiasis, subserosal fibroid, polyglandular endocrinopathy. Abcess grew MRSA tsh was 17.6, normal free T4, fT3 1.39 (LOW), TPO antibody >600, unremarkable thyroid US 02/19/25 Social history: Per son, patient smokes, does not drink anymore, Patient has a son who lives with her grand mom in [place], who talked to the patient for 5 days back. Daughter lives in [place]. Patient currently lives with her boyfriend Koko. 05/18 - Patient seen and examined in 110. On propofol and Versed. AKA is resolving, electrolytes replenish. Cefepime switched to meropenem for ESBL coverage, duo nebs started q.6 hourly. Cultures preliminary negative. 05/19 - off sedation 9:30AM, demetrius well, low fever 100F, pt grimaces to painful stimuli 05/20: Patient is getting sedation vacation trial, not really responding or following commands. Has some spontaneous movements of head, brainstem reflexes intact. Appears euvolemic. Intubated sedated/sedation vacation right now, ventilated settings a.c./20/4 100/30%/5.0, she has OG tube getting trickle feeds, drips include Versed 1 propofol 10. CBI no further bleed trickle rate for CVA currently. We will continue primary team's management otherwise. Patient does well on sedation vacation tomorrow we can try CPAP trial. Currently patient is not doing well likely we will retry sedation vacation tomorrow. 05/21: This a.m. x-ray has significant opacities, patient has history of smoking. We will start Solu-Medrol 40 IV b.i.d.. We will hold off giving further fluids given concern of possible ARDS. Patient has no history of CHF. Patient is making good urine output appears euvolemic drips include Versed 7, propofol 25. Ventilated settings a.c./20/4 100/30%/5.0. Vitals are stable, no vasopressors. 05/22 - patient on sedative, and levophed. Sedation vacation and CPAP trial for 2- 3 hrs, demetrius well, resumed sedatives with Propofol at 25, off versed since AM. CPAP tomorrow. Lasix 40 iv once. lantus inc to 10 hs 05/23-successful CPAP trial, patient extubated, patient signed AMA. Patient understands risks of going home medical advised, mother/kids at bedside. Objective vital signs Vital Sign Date Time Temp Pulse Resp B/P (MAP) Pulse Ox O2 Delivery O2 Flow Rate FiO2 05/23/25 18:36 88 13 99 05/23/25 18:30 Nasal Cannula* 2 28 05/23/25 18:00 127/67 (87) 05/23/25 16:00 98.7 98.7 Total Intake and Output 05/22/25 05/22/25 05/23/25 15:00 23:00 07:00 Intake Total 393.916 ml 926.085 ml 798.776 ml Output Total 1850 ml 600 ml Balance 393.916 ml -923.915 ml 198.776 ml medications Current Medications Medications Dose Ordered Sig/Hannah Route Start Time Stop Time Status Last Admin Dose Admin Midazolam HCl 50 ml @ 1 mls/hr Q24H IV 05/17/25 09:30 05/22/25 00:44 9 MLS/HR Propofol 100 ml @ 2.319 mls/ hr Q24H IV 05/17/25 13:00 05/23/25 06:59 18.552 MLS/HR Ondansetron HCl 4 mg Q4HP PRN IV 05/17/25 15:30 Nitroglycerin 0.4 mg Q5MINP PRN SL 05/17/25 15:30 Diagnostic Test (Pha) 1 strip Q6HR 05/17/25 18:00 05/23/25 11:38 1 STRIP Insulin Human Regular Q6HR SC 05/17/25 18:00 05/23/25 11:37 6 UNITS Dextrose 50 ml UD PRN IV 05/17/25 17:00 Ipratropium [place] 0.5 mg Q6HR NEB 05/18/25 08:15 05/23/25 18:30 0.5 MG Albuterol 2.5 mg Q6HR NEB 05/18/25 08:15 05/23/25 18:30 2.5 MG Thiamine HCl 100 mg DAILY IV 05/18/25 08:30 05/23/25 09:20 100 MG Folic Acid 1 mg/ Dextrose 50.2 ml @ 200.8 mls/ hr DAILY INJ 05/18/25 08:30 05/23/25 09:21 200.8 MLS/HR Pantoprazole Sodium 40 mg DAILY IV 05/19/25 10:00 05/23/25 09:19 40 MG Meropenem 50 ml @ 17 mls/hr Q8HR IV 05/18/25 14:00 05/23/25 14:31 17 MLS/HR Enteral Nutritional Formula 1,000 ml 40ML/HR PO 05/18/25 14:00 05/21/25 05:45 1,000 ML Ibuprofen 600 mg Q6HP PRN GT 05/19/25 11:30 05/23/25 18:52 600 MG Lactulose 30 ml DAILY PO 05/20/25 10:00 05/22/25 09:48 30 ML Levothyroxine Sodium 150 mcg QAM@0600 PO 05/20/25 06:00 05/23/25 05:48 150 MCG Docusate Sodium 100 mg DAILY PRN GT 05/19/25 23:45 05/19/25 23:56 100 MG Norepinephrine Bitartrate 250 ml @ 3.75 mls/hr Q24H IV 05/21/25 16:00 05/21/25 16:50 3.75 MLS/HR Enoxaparin Sodium 40 mg DAILY SC 05/22/25 10:00 05/23/25 09:20 40 MG Insulin Glargine 10 units HS SC 05/22/25 22:00 05/22/25 21:31 10 UNITS Examination Obese female patient lying in the bed, extubated, not responding to commands or pain. Right-sided central venous catheter, low fever 100F, pt grimaces to painful stimuli General: Morbidly obese, low-grade fever, palor, mucosae are moist Cardiovascular: Regular S1 and S2. No murmurs, gallops or rubs. No JVD elevation. 1+ bilateral pitting edema Respiratory: No wheezing, coarse crackles on the left lateral side. Abdomen: Soft, normoactive, slightly distended bowel sounds, no rebound tenderness, no organomegaly, no masses Genitourinary: Crespo seen, urine clearing up MSK/skin: Skin dry and warm Neurological: Pupils are isocoric and reactive. laboratory and microbiology Laboratory Tests 05/23/25 03:07 Test 05/23/25 03:07 Range/Units Serum Glucose 228 H 74-106 mg/dL Microbiology Date/Time Source Procedure Growth Status 05/19/25 13:20 Nose MRSA Screen - Final Complete 05/17/25 13:10 Urine - Catheterized Urine Culture - Final Proteus mirabilis Complete 05/17/25 09:45 Blood Blood Culture - Final NO GROWTH AFTER 5 DAYS OF INCUBATION. Complete 05/17/25 09:32 Sputum Expectorated Sputum Gram Stain - Final Complete 05/17/25 09:32 Respiratory Culture - Final Proteus mirabilis Streptococcus Group C Complete Labs and/or images reviewed: Labs reviewed by me, Image(s) reviewed by me Problem List/Assessment/Plan Problem List/Assessment/Plan NEURO: Acute metabolic encephalopathy secondary to sepsis and drug intoxication/seizure/stroke Possible drug intoxication Benzo and meth use dependence UDS positive for benzodiazepines and methamphetamine CT head negative Ammonia wnl CARDIOVASCULAR: Sepsis likely Gram-positive and Gram-negative pneumonia and UTI Lactic acidosis HTN Blood pressure currently adequately controlled without antihypertensives Discontinue IV vancomycin 05/17 Continue IV meropenem 05/18 for ESBL coverage Echo completed, shows 55% EF PULMONARY: Acute hypercapnic resp failure s/p intubation05/17 post extubation 05/23 Sepsis likely Gram-positive and Gram-negative pneumonia ARDS and B/L PNEUMONIA Likely aspiration pneumonia Blood culture negative /respiratory culture proetus and strep /urine culture proteus MRSA nares negative /COVID and flu negative Left lower lobe opacification and infiltration ESR 30, CRP 17 Lasix 20 IV 05/21, Lasix 40mg IV 05/22, Lasix 20 mg IV 05/23 Discontinued Solu medrol 40bid 05/21 GASTRO: Transamnitis hepatic stetosis Hx of cholelithiasis Likely metabolic steatosis Continue monitoring LFTs GENITOURINARY: Gross hematuria Nonobstructive curvilinear left renal caliceal stone ?complicated cystitis Early rhabdomyolysis Urology on board-recommended continuous bladder irrigation, DC CBI IV vancomycin and IV meropenem DC IV LR 75 cc/hour CK 153 downtrending Lovenox resumed f/u on hematuria, repeat h&H if gross hematuria and do cbi METABOLIC: Uncontrolled T2DM - A1C 8.7 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 Obesity Mild ISS, Lantus 10 HS TSH 14, free T4 0.72, total T3 1.17, TPO antibody >600 at [facility] per records Levothyroxine 1.6mcg/kg = 150mcg 6AM daily INFECTIOUS DISEASE: Gram-positive and Gram-negative pneumonia Sepsis due to above ?complicated cystitis Hx of sepsis with R perineal abcess s/p I&D 02/19 Blood culture negative /respiratory culture proetus and strep /urine culture proteus OBGYN Hx of sepsis with R perineal abcess s/p I&D 02/19 subserosal fibroid -White Discharge noted, culture, gono/chlam pending Tube feeding Glucerna 40 cc/hour, nutritional consult pending 05/10 DIET: Pureed diet DVT prophylax: Lovenox 40 05/22, SCDs GI prophylaxis: Protonix 40 mg IV daily Bowel regimen: Lactulose daily Code status: Full code LINES/DRAINS/ACCESS: IV access: R IJ 05/17 Drips: Precedex Crespo catheter: 05/17 DISPOSITION: ICU Patient's status discussed with patient, patient's Son/Mom at bedside in which all questions have been answered Critical care time spent more than 81 minutes, including patient care, chart review, and updating the family (son and mother, at bedside) in detail and cpap trial. Excluding any procedures Case discussed with Dr. Gong Plan discussed with: Patient, Daughter, Son My Orders My Orders Orders - LOWELL YOUNGBLOOD Procedure Category Date Status Time Cpap Trial For Am ORDERS 05/23/25 Transmitted 09:19 Ventilator Orders RT 05/23/25 Transmitted 09:35 Dexmedetomidine Hcl PHA 05/23/25 In Process In D5w (Precedex) 09:45 Cpap/Sed Vacation Med ORDERS 05/23/25 Transmitted Weaning 07:00 Pureed DIET 05/23/25 Transmitted Dinner Dietary Evaluation Review Comments: 1) Continue Glucerna 1.2 @ 40 mL/hr goal rate as tolerated 2) Advance to 60g CCHO cardiac diet when medically feasible, pending ST approval 3) Refer to outpatient RD/CDCES for diabetes education and weight management 4) Follow-up with social media marketer r/t polysubstance abuse 5) Continue to monitor I&O, labs, and skin integrity Expected Outcomes/Goals: 1) labs to improve 2) diet to advance 3) f/u in 2-3 days Date of Service: May 23, 2025 Billing Provider: WILL GONG MD Common Visit Codes: 92578-[id number] CARE 30-74 MIN, [id number] CARE-EACH +30MIN LOWELL YOUNGBLOOD May 23, 2025 19:06 WILL GONG MD May 24, 2025 14:58
[2025-05-23] MEDS: ZOLPIDEM TARTRATE 5 MG TAB PO SCH (22:09)
[2025-05-24] VITALS (29 sets, daily range): BP systolic 104–127; BP diastolic 62–80; PULSE 73–113; RESP 11–21; TEMP 98–99.9; O2SAT 90–100
[2025-05-24] MEDS ORDERED: ZOLP10TA PO (00:24)
[2025-05-24] MEDS: IBUPROFEN 100MG/5ML ORAL SUSP 100 MG/5 ML UD ONE (03:06)
[2025-05-24 03:56] LABS: Hematocrit 37.6 % (36.0-46.0); Hemoglobin 12.7 g/dL (12.2-16.2); Mean Corpuscular Hemoglobin 30.9 pg (28.0-32.0); Mean Corpuscular Volume 91.5 fL (80.0-100.0)
[2025-05-24 04:06] LABS: Alanine Aminotransferase 32 U/L (7-40); Albumin 3.8 g/dL (3.2-4.8); Anion Gap 9 (5-15); BUN/Creatinine Ratio 39.4 (10.0-20.0); Chloride 99 mmol/L (98-107); Magnesium 2.2 mg/dL (1.6-2.6); Potassium 3.6 mmol/L (3.5-5.1); Sodium 140 mmol/L (136-145); Total Protein 6.4 g/dL (5.7-8.2)
[2025-05-24 04:07] LABS: Bilirubin, Total 0.4 mg/dL (0.2-1.0)
[2025-05-24 04:13] LABS: Alkaline Phosphatase 129 U/L (46-116); Blood Urea Nitrogen 28 mg/dL (9-23); Calcium 8.6 mg/dL (8.7-10.4); Carbon Dioxide 32 mmol/L (20-31); Glucose 177 mg/dL (74-106)
[2025-05-24 04:43] LABS: Total Cells Counted 100.0 (100)
--- NOTE | 2025-05-24 05:43 | DVH ---
CHEST RADIOGRAPH Indication: Follow up post extubation Technique: Single frontal view of the chest was obtained COMPARISON: XY CHEST XRAY 1 VIEW on DOS: 05/23/25, XY CHEST PORTABLE on DOS: 05/22/25, XY CHEST XRAY 1 EW on DOS: 05/21/25, XY CHEST XRAY 1 VIEW on DOS: 05/20/25, XY CHEST XRAY 1 VIEW on DOS: 05/19/25 FINDINGS: Lines and Tubes: Right central venous catheter in satisfactory position Lungs: Congestion Pleura: No effusion. No pneumothorax. Cardiomediastinal contours: Unremarkable Bones: Unremarkable IMPRESSION: Increased interstital prominence. This may represent pulmonary vascular congestion and/or viral pneum onia. Clinical correlation advised.
[2025-05-24] MEDS: NICOTINE 14 MG/24HR TOPICAL PATCH TD SCH (09:43)
[2025-05-24] MEDS: FUROSEMIDE 20 MG/2 ML VIAL IV ONE (09:44)
[2025-05-24] MEDS: Ensure HIGH Protein Chocolate 8oz Bottle PO SCH (09:45)
[2025-05-24] MEDS: MULTIPLE VITAMINS W/ MINERALS TAB PO ONE (17:53)
[2025-05-24] MEDS: levoFLOXacin 250 MG TAB PO ONE (17:59)
[2025-05-24] MEDS: InsuLIN REG 1unit/0.01ml Soln (100units/ml) SC SCH (18:24)
--- NOTE | 2025-05-24 18:56 | DVHPNRES ---
Progress Note Date Seen: May 24, 2025 Resident Creating Document: LOWELL YOUNGBLOOD RESIDENT Medical Necessity Reason Pt with a Central, PICC or Fol: No Subjective Review of Systems This is a 49-year-old female with diabetes mellitus uncontrolled, possible history of drug use, hypertension on amlodipine who was BIBA to the ER as she was found unresponsive at her house, patient received 2 doses of Elysian IM and IV, 2 mg and 1 mg followed which he vomited once, on arrival to the ER, pH was 7.22, CO2 60, bicarb 24 and patient was not able to protect her airway therefore she was intubated 05/17 around 9:00 a.m. Patient was febrile at 1:02 a.m. 0.4, white cell 21 with 85% neutrophils, Crespo was placed which past gross hematuria, urology was consulted, recommended continuous bladder irrigation with clear the urine. UA showed 3+ esterase, nitrites were negative, 1039 WBCs. UDS positive for amphetamines and benzodiazepines. CT abdomen completed, showed nonobstructive left renal feel stone, left lower lobe /consolidation. Per nurse, patient had some residual food in her mouth. Patient was started on IV vancomycin and cefepime, cefepime was switched to meropenem 05/18 given the risk of ESBL. Head CT negative [facility] RECORDS REVIEWED: Patient was admitted to [facility] 02/17 - 02/20 ?AMA for Sepsis d/t perineal abcess, R labial abcess 10x4x8 mm s/p I&d 02/18 and vanc+zosyn+clinda, new T2DM A1C 13.4, BMI 51, HTN, meth use, hepatic stetosis, cholelithiasis, subserosal fibroid, polyglandular endocrinopathy. Abcess grew MRSA tsh was 17.6, normal free T4, fT3 1.39 (LOW), TPO antibody >600, unremarkable thyroid US 02/19/25 Social history: Per son, patient smokes, does not drink anymore, Patient has a son who lives with her grand mom in [place], who talked to the patient for 5 days back. Daughter lives in [place]. Patient currently lives with her boyfriend Koko. 05/18 - Patient seen and examined in 110. On propofol and Versed. AKA is resolving, electrolytes replenish. Cefepime switched to meropenem for ESBL coverage, duo nebs started q.6 hourly. Cultures preliminary negative. 05/19 - off sedation 9:30AM, demetrius well, low fever 100F, pt grimaces to painful stimuli 05/20: Patient is getting sedation vacation trial, not really responding or following commands. Has some spontaneous movements of head, brainstem reflexes intact. Appears euvolemic. Intubated sedated/sedation vacation right now, ventilated settings a.c./20/4 100/30%/5.0, she has OG tube getting trickle feeds, drips include Versed 1 propofol 10. CBI no further bleed trickle rate for CVA currently. We will continue primary team's management otherwise. Patient does well on sedation vacation tomorrow we can try CPAP trial. Currently patient is not doing well likely we will retry sedation vacation tomorrow. 05/21: This a.m. x-ray has significant opacities, patient has history of smoking. We will start Solu-Medrol 40 IV b.i.d.. We will hold off giving further fluids given concern of possible ARDS. Patient has no history of CHF. Patient is making good urine output appears euvolemic drips include Versed 7, propofol 25. Ventilated settings a.c./20/4 100/30%/5.0. Vitals are stable, no vasopressors. 05/22 - patient on sedative, and levophed. Sedation vacation and CPAP trial for 2- 3 hrs, demetrius well, resumed sedatives with Propofol at 25, off versed since AM. CPAP tomorrow. Lasix 40 iv once. lantus inc to 10 hs 05/23-successful CPAP trial, patient extubated, patient signed AMA. Patient understands risks of going home medical advised, mother/kids at bedside. 05/24-patient ambulated with physical therapist, chest x-ray shows congestion, Lasix 20 IV given. Ensure added. DC meropenem, started Levaquin 750 daily p.o. Lantus increased to 25, moderate sliding scale Objective vital signs Vital Sign Date Time Temp Pulse Resp B/P (MAP) Pulse Ox O2 Delivery O2 Flow Rate FiO2 05/24/25 18:00 99.9 109 20 126/75 (92) 93 99.9 05/24/25 18:00 Room Air* 0 21 Total Intake and Output 05/23/25 05/23/25 05/24/25 15:00 23:00 07:00 Intake Total 127.398 ml 125 ml 417 ml Output Total 1600 ml Balance 127.398 ml -1475 ml 417 ml medications Current Medications Medications Dose Ordered Sig/Hannah Route Start Time Stop Time Status Last Admin Dose Admin Ondansetron HCl 4 mg Q4HP PRN IV 05/17/25 15:30 Nitroglycerin 0.4 mg Q5MINP PRN SL 05/17/25 15:30 Diagnostic Test (Pha) 1 strip Q6HR 05/17/25 18:00 05/24/25 17:59 1 STRIP Dextrose 50 ml UD PRN IV 05/17/25 17:00 Ipratropium E[place]ka 0.5 mg Q6HR NEB 05/18/25 08:15 05/24/25 18:26 0.5 MG Albuterol 2.5 mg Q6HR NEB 05/18/25 08:15 05/24/25 18:26 2.5 MG Ibuprofen 600 mg Q6HP PRN GT 05/19/25 11:30 05/24/25 02:54 600 MG Lactulose 30 ml DAILY PO 05/20/25 10:00 05/22/25 09:48 30 ML Levothyroxine Sodium 150 mcg QAM@0600 PO 05/20/25 06:00 05/24/25 05:24 150 MCG Docusate Sodium 100 mg DAILY PRN GT 05/19/25 23:45 05/19/25 23:56 100 MG Zolpidem Tartrate 5 mg HS PO 05/23/25 22:00 05/23/25 22:09 5 MG Nicotine 1 patch DAILY TD 05/24/25 10:00 05/24/25 09:43 1 PATCH Enteral Nutritional Formula 240 ml TIDWM PO 05/24/25 09:45 05/24/25 13:11 240 ML Insulin Human Regular Q6HR SC 05/24/25 18:00 05/24/25 18:24 6 UNITS Insulin Glargine 25 units HS SC 05/24/25 22:00 Levofloxacin 750 mg DAILY PO 05/25/25 10:00 Multivitamins/ Minerals 1 tab DAILY PO 05/25/25 10:00 Pantoprazole Sodium 40 mg DAILY@0600 PO 05/25/25 06:00 Examination Obese female patient lying in the bed, extubated, alert and oriented x4. Discontinued Right-sided central venous catheter General: Morbidly obese, low-grade fever, palor, mucosae are moist Cardiovascular: Regular S1 and S2. No murmurs, gallops or rubs. No JVD elevation. 1+ bilateral pitting edema Respiratory: No wheezing, coarse crackles on the bilateral bases Abdomen: Soft, normoactive, slightly distended bowel sounds, no rebound tenderness, no organomegaly, no masses Genitourinary: Crespo discontinued, urine clearing up MSK/skin: Skin dry and warm Neurological: Pupils are isocoric and reactive. laboratory and microbiology Laboratory Tests 05/24/25 03:05 Test 05/24/25 03:05 Range/Units Serum Glucose 177 H 74-106 mg/dL Microbiology Date/Time Source Procedure Growth Status 05/19/25 13:20 Nose MRSA Screen - Final Complete 05/17/25 13:10 Urine - Catheterized Urine Culture - Final Proteus mirabilis Complete 05/17/25 09:45 Blood Blood Culture - Final NO GROWTH AFTER 5 DAYS OF INCUBATION. Complete 05/17/25 09:32 Sputum Expectorated Sputum Gram Stain - Final Complete 05/17/25 09:32 Respiratory Culture - Final Proteus mirabilis Streptococcus Group C Complete Labs and/or images reviewed: Labs reviewed by me, Image(s) reviewed by me Problem List/Assessment/Plan Problem List/Assessment/Plan NEURO: Acute metabolic encephalopathy secondary to sepsis and drug intoxication/seizure/stroke Possible drug intoxication Benzo and meth use dependence UDS positive for benzodiazepines and methamphetamine CT head negative Ammonia wnl CARDIOVASCULAR: Sepsis likely Gram-positive and Gram-negative pneumonia and UTI Lactic acidosis HTN Blood pressure currently adequately controlled without antihypertensives Discontinue IV vancomycin 05/17 Continue IV meropenem 05/18 for ESBL coverage Echo completed, shows 55% EF PULMONARY: Acute hypercapnic resp failure s/p intubation05/17 post extubation 05/23 Sepsis likely Gram-positive and Gram-negative pneumonia ARDS and B/L PNEUMONIA Likely aspiration pneumonia Blood culture negative /respiratory culture proetus and strep /urine culture proteus MRSA nares negative /COVID and flu negative Left lower lobe opacification and infiltration ESR 30, CRP 17 Lasix 20 IV 05/21, Lasix 40mg IV 05/22, Lasix 20 mg IV 05/23, Lasix 20 05/24 Discontinued Solu medrol 40bid 05/21 IV meropenem discontinued, started Levaquin p.o. 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 Obesity Mild increased to moderate ISS, Lantus increased to 25 TSH 14, free T4 0.72, total T3 1.17, TPO antibody >600 at [facility] per records Levothyroxine 1.6mcg/kg = 150mcg 6AM daily INFECTIOUS DISEASE: Gram-positive and Gram-negative pneumonia Sepsis due to above ?complicated cystitis Hx of sepsis with R perineal abcess s/p I&D 02/19 Blood culture negative /respiratory culture proetus and strep /urine culture proteus OBGYN Hx of sepsis with R perineal abcess s/p I&D 02/19 subserosal fibroid -White Discharge noted, culture, gono/chlam pending Tube feeding Glucerna 40 cc/hour, nutritional consult pending 05/10 DIET: Pureed diet DVT prophylax: Lovenox 40 05/22, SCDs GI prophylaxis: Protonix 40 mg IV daily Bowel regimen: Lactulose daily Code status: Full code LINES/DRAINS/ACCESS: IV access: R IJ 05/17 Drips: Precedex Crespo catheter: 05/17 DISPOSITION: ICU, down graded Tele Patient's status discussed with patient, patient's Son/Mom at bedside in which all questions have been answered Critical care time spent more than 59 minutes, including patient care, chart review, and updating the family (son and mother, at bedside) in detail. Excluding any procedures Case discussed with Dr. Gong Plan discussed with: Patient, Daughter, Son, Other (mom) My Orders My Orders Orders - ALI,LOWELL RESIDENT Procedure Category Date Status Time Chest Xray 1 View XY 05/24/25 Resulted 04:00 Pt Request For Service PT 05/24/25 Logged 08:23 D/C Tlc SHAN 05/24/25 In Process 08:25 Respiratory Culture MILTON 05/24/25 Logged W/ Gs 08:26 Nicotine 14mg/24hr PHA 05/24/25 In Process (Nicoderm 14mg/24hr) 10:00 Nutritional PHA 05/24/25 In Process Supplements (Ensure 09:45 Insulin R (Human) PHA 05/24/25 In Process (Insulin R) 18:00 Transfer Orders XFER 05/24/25 Transmitted 14:59 Insulin Lantus PHA 05/24/25 In Process (Glargine) (Lantus) 22:00 Levofloxacin Tablet PHA 05/25/25 In Process (Levaquin Tablet) 10:00 Multiple Vitamin W PHA 05/25/25 In Process Mineral Tab (Mvi W/ M 10:00 Pantoprazole Tablet PHA 05/25/25 In Process (Protonix Tablet) 06:00 Dietary Evaluation Review Comments: 1) Continue Glucerna 1.2 @ 40 mL/hr goal rate as tolerated 2) Advance to 60g CCHO cardiac diet when medically feasible, pending ST approval 3) Refer to outpatient RD/CDCES for diabetes education and weight management 4) Follow-up with social work faculty member r/t polysubstance abuse 5) Continue to monitor I&O, labs, and skin integrity Expected Outcomes/Goals: 1) labs to improve 2) diet to advance 3) f/u in 2-3 days Date of Service: May 24, 2025 Billing Provider: WILL GONG MD Common Visit Codes: 22911-[id number] CARE 30-74 MIN LOWELL YOUNGBLOOD May 24, 2025 18:56 WILL GONG MD May 25, 2025 11:50
[2025-05-24] MEDS: NICOTINE 21MG/24 HR TOPICAL PATCH TD ONE (20:00)
[2025-05-24] MEDS: MELATONIN 5 MG TAB PO SCH (20:56)
[2025-05-24] MEDS: INSULIN LANTUS (GLARGINE) 1 /0.01ml (100units/ml) SC SCH (21:06)
[2025-05-24 22:06] LABS: Chlamydia Trachomatis, NAA Negative (Negative); Neisseria gonorrhoeae, NAA Negative (Negative)
[2025-05-25] VITALS (12 sets, daily range): BP systolic 107–147; BP diastolic 55–90; PULSE 77–104; RESP 16–19; TEMP 97.5–98.9; O2SAT 90–100
[2025-05-25] MEDS: PANTOPRAZOLE 40 MG TAB PO SCH (05:12)
--- NOTE | 2025-05-25 06:15 | DVH ---
CHEST RADIOGRAPH Indication: Bilateral crackles Technique: Single frontal view of the chest was obtained COMPARISON: XY CHEST XRAY 1 VIEW on DOS: 05/24/25, XY CHEST XRAY 1 VIEW on DOS: 05/23/25, XY CHEST PORTAB LE on DOS: 05/22/25, XY CHEST XRAY 1 VIEW on DOS: 05/21/25, XY CHEST XRAY 1 VIEW on DOS: 05/20/25 FINDINGS: Lines and Tubes: Status post interval removal of right internal jugular central venous catheter. Lungs: Interval improvement in pulmonary vascular congestion. No evidence of focal consolidation. Pleura: No effusion. No pneumothorax. Cardiomediastinal contours: Unremarkable Bones: Unremarkable IMPRESSION: 1. Interval improvement in pulmonary vascular congestion. 2. Status post interval removal of right IJ catheter.
[2025-05-25 06:46] LABS: Hematocrit 37.2 % (36.0-46.0); Hemoglobin 12.8 g/dL (12.2-16.2); Mean Corpuscular Hemoglobin 31.6 pg (28.0-32.0); Mean Corpuscular Volume 91.7 fL (80.0-100.0)
[2025-05-25 06:57] LABS: Anion Gap 10 (5-15); Carbon Dioxide 27 mmol/L (20-31)
[2025-05-25 06:59] LABS: Calcium 8.9 mg/dL (8.7-10.4); Chloride 98 mmol/L (98-107); Potassium 3.3 mmol/L (3.5-5.1); Sodium 135 mmol/L (136-145)
[2025-05-25 07:04] LABS: BUN/Creatinine Ratio 19.0 (10.0-20.0); Blood Urea Nitrogen 15 mg/dL (9-23); Glucose 211 mg/dL (74-106); Magnesium 2.1 mg/dL (1.6-2.6)
[2025-05-25 07:39] LABS: Total Cells Counted 100.0 (100)
[2025-05-25] MEDS: POTASSIUM CHL 20 Meq TABLET PO ONE (09:45)
[2025-05-25] MEDS: levoFLOXacin 250 MG TAB PO SCH (09:45)
[2025-05-25] MEDS: NICOTINE 21MG/24 HR TOPICAL PATCH TD SCH (09:45)
[2025-05-25] MEDS: MULTIPLE VITAMINS W/ MINERALS TAB PO SCH (09:46)
[2025-05-25] MEDS: FUROSEMIDE 20 MG/2 ML VIAL IV ONE (09:51)
[2025-05-25] MEDS ORDERED: LANC-347 XX (13:03)
[2025-05-25] MEDS ORDERED: NUTR-559 PO (13:03)
[2025-05-25] MEDS ORDERED: INSU100I69 SC (13:03)
[2025-05-25] MEDS ORDERED: INSU-450 XX (13:03)
[2025-05-25] MEDS ORDERED: ALCO1PAD13 XX (13:03)
[2025-05-25] MEDS ORDERED: LEVO50TA7 PO (13:03)
[2025-05-25] MEDS ORDERED: [UNRECOGNIZED DRUG - CODE] XX (13:03)
[2025-05-25] MEDS ORDERED: MULT-351 PO (13:03)
[2025-05-25] MEDS ORDERED: LEVO250T58 PO (13:03)
--- NOTE | 2025-05-25 14:28 | ECG ---
[facility] Test Date: 2025-05-19 Test Time: 17:09:38 Pat Name: TREY ECHEVERRIA Department: ICU Room: 0249T Gender: F [employer] Estate Management Specialist: GURPREET : 1975 Requested By: LOWELL YOUNGBLOOD Order Number: [id number] Reading MD: Bob See Measurements Intervals [place] Rate: 97 P: -3 LA: 136 QRS: 1 QRSD: 90 T: 5 QT: 365 QTc: 464 Interpretive Statements Sinus rhythm Probable left atrial enlargement Borderline T abnormalities, inferior leads Electronically Signed On 05-25-2025 14:28:26 PDT by Bob See Please click the below link to view image of tracing.
--- NOTE | 2025-05-25 18:45 | DVHDSRES ---
Discharge Summary Date of Admission Resident Creating Document: LOWELL YOUNGBLOOD RESIDENT May 17, 2025 at 15:27 Date of Discharge: May 25, 2025 Labs/Diagnostic Data: Laboratory Results Test 05/25/25 11:31 05/25/25 06:03 05/24/25 03:05 05/23/25 14:09 POC Glucose 183 mg/dl (70-106) White Blood Count 13.4 10^3/uL (4.4-10.8) Red Blood Count 4.06 10^6/uL (4.0-5.20) Hemoglobin 12.8 g/dL (12.2-16.2) Hematocrit 37.2 % (36.0-46.0) Mean Corpuscular Volume 91.7 fL (80.0-100.0) Mean Corpuscular Hemoglobin 31.6 pg (28.0-32.0) Mean Corpuscular Hemoglobin Concent 34.5 g/dL (32.0-36.0) Red Cell Distribution Width 12.6 % (11.8-14.3) Platelet Count 337 10^3/uL (140-450) Mean Platelet Volume 7.9 fL (6.9-10.8) Neutrophils (%) (Auto) % (37.0-80.0) Lymphocytes (%) (Auto) % (10.0-50.0) Monocytes (%) (Auto) % (0.0-12.0) Basophils (%) (Auto) % (0.0-2.0) Neutrophils # (Auto) 10 ^3/uL (1.6-8.6) Lymphocytes # (Auto) 10 ^3/uL (0.4-5.4) Monocytes # (Auto) 10 ^3/uL (0-1.3) Differential Total Cells Counted 100.0 (100) Neutrophils % (Manual) 74 (37.0-80.0) Band Neutrophils % (Manual) 1 Lymphocytes % (Manual) 15 (10.0-50.0) Monocytes % (Manual) 9 (0-12) Eosinophils % (Manual) 0 (0-7) Basophils % (Manual) 0 (0.0-2.0) Metamyelocytes % (manual) 0 Myelocytes % (Manual) 1 Promyelocytes % (Manual) 0 Blast Cells % (Manual) 0 Reactive Lymphocytes 0 Platelet Estimate Adequate Sodium Level 135 mmol/L (136-145) Potassium Level 3.3 mmol/L (3.5-5.1) Chloride Level 98 mmol/L (98-107) Carbon Dioxide Level 27 mmol/L (20-31) Anion Gap 10 (5-15) Blood Urea Nitrogen 15 mg/dL (9-23) Creatinine 0.79 mg/dL (0.550-1.02) Glomerular Filtration Rate Calc 93 mL/min (>90) BUN/Creatinine Ratio 19.0 (10.0-20.0) Serum Glucose 211 mg/dL (74-106) Calcium Level 8.9 mg/dL (8.7-10.4) Magnesium Level 2.1 mg/dL (1.6-2.6) Total Bilirubin 0.4 mg/dL (0.2-1.0) Aspartate Amino Transferase (AST) 34 U/L (13-40) Alanine Aminotransferase (ALT) 32 U/L (7-40) Alkaline Phosphatase 129 U/L (46-116) Total Protein 6.4 g/dL (5.7-8.2) Albumin 3.8 g/dL (3.2-4.8) Blood Gas Specimen Type Arterial Blood Gas Sample Site Right radial Blood Gas Patient Temperature 37.0 Arterial Blood Date Drawn [id number] Arterial Blood pH 7.474 (7.350-7.450) Arterial Blood Partial Pressure CO2 41.0 mmHg (32.0-45.0) Arterial Blood Partial Pressure O2 76.2 mmHg (83.0-108.0) Arterial Blood HCO3 29.4 mmol/L (21.0-28.0) Arterial Blood Oxygen Saturation 94.5 % (94.0-98.0) Arterial Blood Base Excess 5.4 mmol/L (-2.0-3.0) Arterial Blood Oxyhemoglobin 94.1 % (94.0-98.0) Arterial Blood Carboxyhemoglobin 0.4 % (0.5-1.5) Arterial Blood Methemoglobin 0.0 % (0.0-1.5) Bulmaro Test Modified Blood Gas Total Hemoglobin 13.60 g/dL (12.0-16.0) Blood Gas Modality Vent - cpap FiO2 % 30.0 Blood Gas Pressure Support 8 Blood Gas PEEP or CPAP 5.0 Test 05/23/25 07:09 05/23/25 03:07 05/22/25 16:03 05/22/25 02:40 Blood Gas Set Respiration Rate 26.0 Blood Gas Tidal Volume 400.0 Eosinophils (%) (Auto) 0.0 % (0.0-7.0) Eosinophils # (Auto) 0 10 ^3/uL (0-0.8) Basophils # (Auto) 0 10 ^3/uL (0-0.2) Nucleated Red Blood Cells 0.0 % Chlamydia trachomatis (EFRA) Negative (Negative) Neisseria gonorrhoeae (EFRA) Negative (Negative) Creatine Kinase 153 U/L (34-145) B-Type Natriuretic Peptide 14.26 pg/mL (0-100) Test 05/21/25 22:58 05/21/25 03:20 05/19/25 14:36 05/19/25 03:00 Vancomycin Level Trough 8.5 ug/mL (5-10) Phosphorus Level 3.5 mg/dL (2.4-5.1) Uric Acid 1.3 mg/dL (3.1-7.8) Troponin I High Sensitivity 18 ng/L (</=34) Ammonia 23 umol/L (11-32) Thyroid Stimulating Hormone (TSH) 14.28 uIU/mL (0.55-4.78) Free Thyroxine (T4) Calculated 0.72 ng/dL (0.89-1.76) Total Triiodothyronine (TT3) 1.17 ng/mL (0.60-1.81) Test 05/18/25 15:33 05/18/25 12:00 05/18/25 03:00 05/17/25 13:10 Influenza Type A Antigen Negative (Negative) Influenza Type B Antigen Negative (Negative) SARS-CoV-2 Antigen (Rapid) Negative (NEGATIVE) Lactic Acid Level 1.1 mmol/L (0.4-2.0) Erythrocyte Sedimentation Rate 30 mm/hr (0-20) C-Reactive Protein High Sensitivity 17.92 mg/dL (<1.0) Beta HCG, Quantitative 0.2 mIU/mL (1.5-4.2) Random Vancomycin Level 20.1 ug/mL (5-10) Plasma/Serum Blood Alcohol < 3.0 mg/dL (<10) Urine Color Red (Yellow) Urine Clarity Ex.turbid (Clear) Urine pH 6.0 (5.0-9.0) Urine Specific [place] 1.015 (1.001-1.035) Urine Protein 2+ (Negative) Urine Ketones Negative (Negative) Urine Blood 3+ /uL (Negative) Urine Nitrite Negative (Negative) Urine Bilirubin Negative (Negative) Urine Urobilinogen Normal mg/dL (Negative) Urine Leukocyte Esterase 3+ /uL (Negative) Urine RBC 09195 /hpf (0 - 4) Urine Microscopic WBC 1039 /HPF (0-5) Urine Squamous Epithelial Cells None seen /hpf (<5) Urine Bacteria None seen /hpf (None Seen) Urine Mucus Few (None Seen) Urine Glucose 1+ mg/dL (Normal) Urine Opiates Screen Neg (NEGATIVE) Urine Fentanyl Screen Neg (NEGATIVE) Urine Barbiturates Screen Neg (NEGATIVE) Urine Phencyclidine Screen Neg (NEGATIVE) Urine Amphetamines Screen Pos (NEGATIVE) Urine Benzodiazepines Screen Pos (NEGATIVE) Urine Cocaine Screen Neg (NEGATIVE) Urine Cannabinoids Screen Neg (NEGATIVE) Test 05/17/25 12:33 05/17/25 09:34 Blood Gas Critical Value Read Back Yes Blood Gas Notified Whom arnel Garcia Blood Gas Notified Time [id number] Blood Gas Notified By [employer] rand daley Prothrombin Time 11.2 sec (9.3-11.8) Prothrombin Time INR 1.06 (0.9-1.15) Activated Partial Thromboplast Time 25.4 SEC (24.5-34.5) Hemoglobin A1c 8.7 % A1C (<5.7) Other Laboratory Tests 05/25/25 06:03 Brief Hx & Hospital Course: This is a 49-year-old female with diabetes mellitus uncontrolled, possible history of drug use, hypertension on amlodipine who was BIBA to the ER as she was found unresponsive at her house, patient received 2 doses of [place] IM and IV, 2 mg and 1 mg followed which he vomited once, on arrival to the ER, pH was 7.22, CO2 60, bicarb 24 and patient was not able to protect her airway therefore she was intubated 05/17 around 9:00 a.m. Patient was febrile at 1:02 a.m. 0.4, white cell 21 with 85% neutrophils, Crespo was placed which past gross hematuria, urology was consulted, recommended continuous bladder irrigation with clear the urine. UA showed 3+ esterase, nitrites were negative, 1039 WBCs. UDS positive for amphetamines and benzodiazepines. CT abdomen completed, showed nonobstructive left renal feel stone, left lower lobe /consolidation. Per nurse, patient had some residual food in her mouth. Patient was started on IV vancomycin and cefepime, cefepime was switched to meropenem 05/18 given the risk of ESBL. Head CT negative [facility] RECORDS REVIEWED: Patient was admitted to [facility] 02/17 - 02/20 ?AMA for Sepsis d/t perineal abcess, R labial abcess 10x4x8 mm s/p I&d 02/18 and vanc+zosyn+clinda, new T2DM A1C 13.4, BMI 51, HTN, meth use, hepatic stetosis, cholelithiasis, subserosal fibroid, polyglandular endocrinopathy. Abcess grew MRSA tsh was 17.6, normal free T4, fT3 1.39 (LOW), TPO antibody >600, unremarkable thyroid US 02/19/25 Social history: Per son, patient smokes, does not drink anymore, Patient has a son who lives with her grand mom in [place], who talked to the patient for 5 days back. Daughter lives in [place]. Patient currently lives with her boyfriend Koko. During the hospitalization, patient was intubated to protect airway, patient was septic with left-sided lower consolidation, she was started on vancomycin and cefepime, cefepime was switched to meropenem given the risk for ESBL. UDS positive for methamphetamine. CT abdomen completed, showed nonobstructive left renal feel stone, left lower lobe /consolidation. Per nurse, patient had some residual food in her mouth. Blood culture negative /respiratory culture proetus and strep /urine culture proteus Patient had gross hematuria which improved with continued bladder irrigation. Urology was consulted. Recommended CBI. Records from [facility] showed patient was admitted for sepsis due to perineal abscess, right labial abscess, she had elevated TPO antibodies, thyroid enzymes were remarkable for possible Victorina, patient was started on levothyroxine 150 mcg daily. Patient received IV fluids given elevated creatinine kinase, she was sedated with propofol and Versed which were decreased in the next days, and sedation vacation was completed every day. Patient started to have spontaneous movement, follow up commands, chest x-ray showed congestion and patient received Lasix, urine output improved along with chest x-ray which showed decreased congestion- improved, patient became more alert and CPAP trial was successfully completed on patient underwent extubation on 05/23. Immediately after extubation patient signed AMA, she was extent then detail regarding the risk of going home against medical advice and family was explained. Patient state, physical therapy was arranged, patient tolerated diet well, she had good urine output, IV antibiotics were de-escalated to IV Levaquin which was later switched to Levaquin p.o.. Right IJ CVC was discontinued. Throughout her course of stay, she received mild sliding scale which was increased to moderate and she also received Lantus bedtime. Family including mother, son and a daughter were continuously breathe on daily basis regarding updates during the hospital stay. 05/25-patient is hemodynamically stable, vitally stable, ambulating without assistance, therefore she has been discharged home, she will be going to [place] with her mother, discharge plan was discussed patient, mother at bedside, patient and family agreed. All questions and concerns answered. Side effects of medications discussed with the patient. time spent in discharge planning was 42 mins Consults/Reason for consult Urology for gross hematuria Operations or Procedures ORDERING PHYSICIAN: SUDHAKAR ZELAYA PROCEDURE(s): ECIDC - ECHO 2D MODE CARDIAC DOP REASON: uncontrolled hypertnesion ORDER NUMBER(s): [id number], ACCESSION NUMBER(s): [id number] APPROVED REPORT EXAM: Two-dimensional and M-mode echocardiogram with Doppler, color Doppler and Optison. Blood Pressure: 140/89 mmHg INDICATION Uncontrolled hypertension RISK FACTORS Height: 5'0", Weight: 170 DIMENSIONS LVDd 3.8 (3.8-5.7cm) LA (2D) 2.6 (1.9-4.0cm) Aortic Root 3.3 (2.0- 3.7cm) LVDs 2.6 (2.5-4.0cm) LA (MM) (1.9-4.0cm) Aortic Cusp Exc 2.0 (1.5- 2.0cm) EF (%) 60.0 (55-70%) Rt. Atrium 2.9 (1.9-4.0cm) Asc. Aorta cm IVSd 0.8 (0.7-1.1cm) RV (D) (1.8-2.4cm) PWd 0.8 (0.7-1.1cm) Mitral Valve Mitral Mitral Stenosis E wave 0.54m/s MV Mean GR. mmHg A wave 0.87m/s MV Peak GR. mmHg E/A ratio 0.6 2D MVA cm2 DECEL Time 224ms PRESS 1/2 Time ms Aortic Valve Aortic Valve Aortic Stenosis V1 0.98m/s AO Mean GR. 4mmHg V2 1.32m/s AO Peak GR. 7mmHg LVOT Diameter 2.2 (1.8-2.4cm) Doppler NATALIE 2.82cm2 Other Information Technically limited study due to body habitus. Conclusion Technically difficult study. Difficult acoustic windows. Aortic root enlargement. Left ventricular enlargement of mild degree. Mild left atrial enlargement. Mild mitral annular calcification. The aortic valve appears to be structurally normal. Tricuspid and pulmonic appear to be structurally normal. Left ventricular function appears to be preserved at 55% with normal RV function. Contrast ECHO confirms left ventricular function. Dopplers unremarkable. No pericardial effusion masses or vegetations. S Condition at Discharge: Stable Final Diagnosis/Problems List Acute metabolic encephalopathy secondary to sepsis and drug intoxication/seizure/stroke Possible drug intoxication / meth use dependence Benzo and meth use dependence Sepsis likely Gram-positive and Gram-negative pneumonia and UTI Lactic acidosis HTN Acute hypercapnic resp failure s/p intubation05/17 post extubation 05/23 Sepsis likely Gram-positive and Gram-negative pneumonia ARDS and B/L PNEUMONIA Likely aspiration pneumonia Transamnitis hepatic stetosis Hx of cholelithiasis Gross hematuria Nonobstructive curvilinear left renal caliceal stone ?complicated cystitis Early rhabdomyolysis Uncontrolled T2DM - A1C 8.7 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 Morbid Obesity Hx of sepsis with R perineal abcess s/p I&D 02/19 Hx of sepsis with R perineal abcess s/p I&D 02/19 subserosal fibroid Discharge Disposition: Home Discharge Instruct/Medications Diet: Consistent carbohydrate Activity: No Restrictions, As Tolerated Follow Up/Referral: FOLLOW UP WITH PRIMARY CARE PHYSICIAN IN 7 DAYS FOLLOW UP WITH OXYHYDROGEN WELDER IN 2 WEEKS Medications: INSULIN SLIDING SCALE AC INSULIN LANTUS 25 BEDTIME LEVTHYROXINE 75MCG BEFORE BREAKFAST DAILY TAB LEVOFLOXACIN 750MG DAILY FOR NEXT 5 DAYS Scheduled Insulin Glargine-Yfgn (Semglee), 25 UNIT SC HS Levofloxacin Hemihydrate (Levofloxacin), 750 MG PO DAILY Levothyroxine Sodium (Levothyroxine Sodium), 75 MCG PO QAM@0600 Multiple Vitamins W/ Minerals (Multiple Vitamins/Womens), 1 TAB PO DAILY Nutritional Supplements (Ensure High Protein), 240 ML PO TIDWM Discontinued Medications Zolpidem Tartrate (Ambien), 5 MG PO HS, (Reported) Durable Medical Equipment Blood Glucose Monitoring Suppl (Tgt Blood Glucose Monitor), EA XX ACHS, (DME) Insulin Pen Needle (Fifty50 Pen Lohn 31G X), 16 XX ACHS, (DME) Isopropyl Alcohol (Alcohol Swabs), % XX ACHS, (DME) Lancets (Freestyle Lancets), EA XX ACHS, (DME) Discharge Statement: "Patient was advised to return to the ER or call 911 if any headaches, dizziness, shortness of breath, chest pain, abdominal pain, bleeding, fevers, or worsening of medical condition. Patient was counseled about treatment plan, medications, possible side effects, patientverbalized understanding. All questions were answered to the best of my ability. This discharge took greater then 30 minutes in planning, reviewing documentation, counseling the patient, and discussing with other team members." ASSESSMENT ASSESSMENT Assessment acute metabolic encephalopathy Date of Service: May 25, 2025 Billing Provider: WILL GONG MD Common Visit Codes: 48031-ICT/OBS DISCH DAY >30min LOWELL YOUNGBLOOD RESIDENT May 25, 2025 18:45 WILL GONG MD May 27, 2025 15:43
== END 2025-05-25 16:20 | disposition home or self-care (01) | DRG 720 ==
LOC: ER 08:50 → OVERFLOW 15:27 → ICU WEST 17:41 → TELE-EAST 05-24 21:20
PROVIDERS: ADMIT Internal Medicine; ATTEND Internal Medicine
PROC: 02HV33Z Insertion of Infusion Device into Superior Vena Cava, Percutaneous Approach (ICD-10-PCS; principal; 2025-05-17)
PROC: 5A1955Z Respiratory Ventilation, Greater than 96 Consecutive Hours (ICD-10-PCS; 2025-05-17)
PROC: B548ZZA Ultrasonography of Superior Vena Cava, Guidance (ICD-10-PCS; 2025-05-17)
PROC: 0BH17EZ Insertion of Endotracheal Airway into Trachea, Via Natural or Artificial Opening (ICD-10-PCS; 2025-05-17)
DX: A41.59 Other Gram-negative sepsis (principal); J80 Acute respiratory distress syndrome; G92.8 Other toxic encephalopathy; J15.69 Pneumonia due to other Gram-negative bacteria; J69.0 Pneumonitis due to inhalation of food and vomit; M62.82 Rhabdomyolysis; E87.20 Acidosis, unspecified; J15.9 Unspecified bacterial pneumonia; Z68.41 Body mass index [BMI] 40.0-44.9, adult; T50.915A Adverse effect of multiple unspecified drugs, medicaments and biological substances, initial encounter; N20.0 Calculus of kidney; E11.65 Type 2 diabetes mellitus with hyperglycemia; F19.229 Other psychoactive substance dependence with intoxication, unspecified; N30.91 Cystitis, unspecified with hematuria; E66.01 Morbid (severe) obesity due to excess calories; F17.210 Nicotine dependence, cigarettes, uncomplicated; R74.01 Elevation of levels of liver transaminase levels; I10 Essential (primary) hypertension; T50.995A Adverse effect of other drugs, medicaments and biological substances, initial encounter; D25.2 Subserosal leiomyoma of uterus; E88.810 Metabolic syndrome; F15.90 Other stimulant use, unspecified, uncomplicated; R65.20 Severe sepsis without septic shock; Z79.899 Other long term (current) drug therapy; Z88.6 Allergy status to analgesic agent; Z88.5 Allergy status to narcotic agent; Y92.89 Other specified places as the place of occurrence of the external cause
CPT/HCPCS: 31500; 36415; 36556; 36600; 70450; 71045; 74018; 74176; 76856; 76857; 80048; 80053; 80202; 80307; 80320; 81001; 82140; 82550; 82805; 82962; 83036; 83605; 83735; 83880; 84100; 84132; 84439; 84443; 84480; 84484; 84550; 84702; 85007; 85025; 85027; 85610; 85652; 85730; 86141; 87040; 87070; 87077; 87081; 87086; 87088; 87186; 87205; 87426; 87804; 93005; 93306; 94002; 94003; 94640; 96365; 96375; 97110; 97116; 97163; 97530; 99291; G0378; J1815; J2185; J2470; J2704; J3480; J3490; J7060; Q9956

== ENCOUNTER 2025-06-04 05:22 | Emergency (ER) | payer SELFPAY ==
[~2025-06-04] VITALS: Ht 152.4 cm; Wt 87.8 kg
[~2025-06-04 05:22] MED LIST: ALCO1PAD13 XX; INSU-450 XX; INSU100I69 SC; LANC-347 XX; LEVO250T58 PO; LEVO50TA7 PO; MULT-351 PO; NUTR-559 PO; [UNRECOGNIZED DRUG - CODE] XX
--- NOTE | 2025-06-04 06:35 | ED.PDOC ---
SOB-HPI HPI Comments 49 y/o F, with PMHx of thyroid disease presents to the ED for CC of shortness of breath. Patient states, she has been experiencing symptoms of shortness of breath with associated right sided throat swelling and pain following, PICC line removal on 05/22/25. Patient reports, following removal to have noticed mild swelling to the site. Patient denies skin discoloration, cough, chest pain, palpitations, or hematemesis. No other associated symptoms, modifiers, recent injuries or sick contacts are present at this time. Chief Complaint: Shortness of Breath Time Seen by MD: 06:15 Reviewed notes: Nurses Notes, Medications, Allergies Information Source: Patient Mode of Arrival: Ambulatory Severity: Moderate Timing: Days Duration: Since onset PE Risk Factors: None History of: Intubation Prehospital treatment: None Modifying Factors: Nothing Past Medical History PAST MEDICAL HISTORY: Thyroid Surgical History: Unknown, Unobtainable [employer] History: Unknown, Unobtainable Family History Family History: Unknown, Unobtainable Social History Smoker: Cigarettes Alcohol: Unknown, Unobtainable Drugs: Unknown, Unobtainable Lives In: Home Constitutional: denies: chills, diaphoresis, fatigue, fever, malaise, sweats, weakness, others EENTM: reports: throat pain, throat swelling; denies: blurred vision, double vision, ear bleeding, ear discharge, ear drainage, ear pain, ear ringing, eye pain, eye redness, hearing loss, mouth pain, mouth swelling, nasal discharge, nose bleeding, nose congestion, nose pain, photophobia, tearing, voice changes, others Respiratory: reports: shortness of breath; denies: cough, hemoptysis, orthopnea, SOB at rest, SOB with excertion, stridor, wheezing, others Cardiovascular: denies: chest pain, dizzy spells, diaphoresis, Dyspnea on exertion, edema, irregular heart beat, left arm pain, lightheadedness, palpitations, PND, syncope, others Gastrointestinal: denies: abdomen distended, abdominal pain, blood streaked bowels, constipated, diarrhea, dysphagia, difficulty swallowing, hematemesis, melena, nausea, poor appetite, poor fluid intake, rectal bleeding, rectal pain, vomiting, others Genitourinary: denies: abnormal vagina bleeding, burning, dyspareunia, dysuria, flank pain, frequency, hematuria, incontinence, pain, , vagina discharge, urgency, others Neurological: denies: dizziness, fainting, headache, left sided numbness, left sided weakness, numbness, paresthesia, pre-existing deficit, right sided num bness, right sided weakness, seizure, speech problems, tingling, tremors, weakness, others Musculoskeletal: denies: back pain, gout, joint pain, joint swelling, muscle pain, muscle stiffness, neck pain, others Integumetry: denies: bruises, change in color, change in hair/nails, dryness, laceration, lesions, lumps, rash, wounds, others Allergic/Immunocompromised: denies: Difficulty Healing, Frequent Infections, Hives, Itching, others Hematologic/Lymphatic: denies: anemia, blood clots, easy bleeding, easy bruising, swollen glands, others Endocrine: denies: excessive hunger, excessive sweating, excessive thirst, excessive urination, flushing, intolerance to cold, intolerance to heat, unexplained weight gain, unexplained weight loss, others Psychiatric: denies: anxiety, bipolar disorder, depression, hopeless, panic disorder, schizophrenia, sleepless, suicidal, others All Other Systems: Reviewed and Negative Physical Exam General Appearance: Moderate Distress HEENT: Normal ENT Inspection, Pharynx Normal, TMs Normal Neck: Full Range of Motion, Non-Tender, Normal, Normal Inspection Respiratory: Chest Non-Tender, Lungs Clear, No Accessory Muscle Use, No Respiratory Distress, Normal Breath Sounds Cardiovascular: No Edema, No JVD, No Murmur, No Gallop, Normal Peripheral Pulses, Regular Rate/Rhythm Breast Exam: Deferred Gastrointestinal: No Organomegaly, Non Tender, No Pulsatile Mass, Normal Bowel Sounds, Soft Genitalia: Deferred Pelvic: Deferred Rectal: Deferred Extremities: No calf tenderness, Normal capillary refill, Normal inspection, Normal range of motion, Non-tender, No pedal edema Musculoskeletal : Apperance: Normal Neurologic: Alert, sheet rock layer II-XII nml as Tested, No Motor Deficits, Normal Affect, Normal Mood, No Sensory Deficits Cerebellar Function: Normal Reflexes: Normal Skin: Dry, Normal Color, Warm Peripheral Pulses: 3+ Radial (R), 3+ Radial (L) Lymphatic: No Adenopathy Was a procedure done? Was a procedure done?: No Differential Dx Differential Diagnosis: Anxiety, Asthma, Bronchitis, CHF, COPD, Pneumonia, Sinusitis, Pharyngitis, URI X-Ray, Labs, Meds, VS Vital Signs Date Time Temp Pulse Resp B/P (MAP) Pulse Ox O2 Delivery O2 Flow Rate FiO2 06/04/25 05:28 98.2 104 19 133/78 93 98.2 Patient alert. Vitals stable. No sign of distress. Answering questions. No leg swelling. Saturation above 95% on re-evaluation. Not using accessory muscles. Heart rate clinically within normal limits. Respiratory rate within normal limits. Continues to smoke cigarettes. Counseled patient on effects of smoking cigarettes for 15 minutes. The affects she is feeling is post intubation. Explained to the patient. Was told to follow up with her primary care physician. Was told to come back if there is any problem. [place] [id number] Ph: [phone] DIAGNOSTIC IMAGING Diagnostic Imaging Report : [id number] Signed PATIENT: TREY ECHEVERRIA ACCT: [id number] UNIT: [id number] : 1975 LOC: ER ROOM / BED: / AGE / SEX: 49 / F ADM STATUS: REG ER SERVICE 7 ORDERING PHYSICIAN: BILL HUNTER MD PROCEDURE(s): NECK - NECK FOR SOFT TISSUE REASON: swollen ORDER NUMBER(s): [id number], ACCESSION NUMBER(s): [id number] Procedure: XY NECK FOR SOFT TISSUE Exam Date: 06/04/2025 06:50 AM History: swollen Comparison Study: None Technique: Soft Tissue Neck: AP and lateral views. Findings: No evidence of soft tissue swelling or radiopaque foreign body. Epiglottis appears normal. Impression: Negative soft tissue neck. ATED BY: WILMAR ROMERO MD DICTATED DATE/TIME: 06/04/25733 SIGNED BY: WILMAR ROMERO MD SIGNED DATE/TIME: 06/04/25733 CC: Time of 1ST Reevaluation: 06:45 Reevaluation 1ST: Unchanged Patient Education/Counseling: Diagnosis, Treatment Family Education/Counseling: No Family Present SEPSIS Sepsis Screen Date sepsis recognized/suspect: Jun 04, 2025 Time Sepsis recognized/suspect: 0534 Recent Procedure: Yes On Antibiotic Therapy: No Respiratory Rate >20: No Heart Rate >90: Yes Temp<36 C (96.8 F) or >38.3 C: No SBP <90 or MAP <65 mmHG: No New Acute Mental Status Change: No Is the patient on CPAP, BIPAP,: No Physician Orders Neck For Soft Tissue (06/04/25 06:28) Vital Signs Date Time Temp Pulse Resp B/P (MAP) Pulse Ox O2 Delivery O2 Flow Rate FiO2 06/04/25 05:28 98.2 104 19 133/78 93 98.2 Departure 1 Departure Time of Disposition: 06:52 Impression: Primary Impression: Pneumonitis Disposition: HOME / SELF CARE / HOMELESS Condition: Good e-Prescriptions Amoxicillin Trihydrate (Amoxicillin) 500 Mg Tab 1 TAB PO TID for 7 Days, #21 TAB Prov: BILL HUNTER MD 06/04/25 Prednisone (Prednisone) 10 Mg Tab 10 MG PO DAILY for 5 Days, #5 MG Prov: BILL HUNTER MD 06/04/25 Discharged With: Self Critical Care Note Critical Care Time?: No Stability Stability form required: No Heart Score Heart Score: Heart Score Response (Comments) Value History N/A 0 EKG N/A 0 Age N/A 0 Risk Factors N/A 0 Troponin N/A 0 Total 0 I personally scribed for BILL HUNTER MD ([email or web address]) on 06/04/25 at 06:35. Electronically submitted by Joaquina Hauser ([email or web address]). I personally scribed for BILL HUNTER MD ([email or web address]) on 06/04/25 at 06:57. Electronically submitted by Joaquina Hauser ([email or web address]). I personally scribed for BILL HUNTER MD ([email or web address]) on 06/04/25 at 07:57. Electronically submitted by Joaquina Hauser ([email or web address]). BILL HUNTER MD Jun 04, 2025 06:35
[2025-06-04] MEDS ORDERED: AMOX500T3 PO (06:53)
[2025-06-04] MEDS ORDERED: PRED10TA PO (06:53)
--- NOTE | 2025-06-04 07:36 | DVH ---
Procedure: XY NECK FOR SOFT TISSUE Exam Date: 06/04/2025 06:50 AM History: swollen Comparison Study: None Technique: Soft Tissue Neck: AP and lateral views. Findings: No evidence of soft tissue swelling or radiopaque foreign body. Epiglottis appears normal. Impression: Negative soft tissue neck.
[2025-06-04 08:50] VITALS: BP 115/74; PULSE 85; RESP 18; TEMP 98.2; O2SAT 96
== END 2025-06-04 08:50 | disposition home or self-care (01) ==
LOC: ER 05:22
DX: J18.9 Pneumonia, unspecified organism (principal); E03.9 Hypothyroidism, unspecified; F17.210 Nicotine dependence, cigarettes, uncomplicated
CPT/HCPCS: 70360

== ENCOUNTER 2025-06-06 11:34 | Inpatient (IN) | payer MEDICAID ==
[~2025-06-06] VITALS: Ht 152.4 cm; Wt 84.0 kg
[~2025-06-06 11:34] MED LIST changes: +AMOX500T3 PO; +PRED10TA PO
--- NOTE | 2025-06-06 12:10 | ED.PDOC ---
History of Present Illness HPI Comments 49 year old female presents to the ED with a chief compliant of generalized weakness onset today. Patient was seen in this ED on 06/04/25, shortness of breath as well as RT sided throat swelling with pain after PICC line removal on 05/22/25. Patient had ultrasound done today, was told she has blood clot of RT IJ, she was told to come to ED. PMHx thyroid disease. Patient denies skin discoloration, cough, chest pain, palpitations, or hematemesis. No other symptoms or modifying factors present at this time. Chief Complaint: General Weakness Time Seen by MD: 12:00 Reviewed Notes: Medications, Allergies Allergies: Coded Allergies: Acetaminophen (Verified Allergy, Unknown, 05/17/25) Codeine (Verified Allergy, Unknown, 05/17/25) Uncoded Allergies: TYLENOL 3 (Allergy, Mild, 04/30/10) Home Meds Active Scripts Amoxicillin Trihydrate (Amoxicillin) 500 Mg Tab, 1 TAB PO TID for 7 Days, #21 TAB Prov:BILL HUNTER MD 06/04/25 Prednisone (Prednisone) 10 Mg Tab, 10 MG PO DAILY for 5 Days, #5 MG Prov:BILL HUNTER MD 06/04/25 Blood Glucose Monitoring Suppl (TGT BLOOD GLUCOSE MONITOR) System Kit, EA XX ACHS, #1 achs Prov:LOWELL YOUNGBLOOD 05/25/25 Lancets (Freestyle Lancets) Lancets [facility], EA XX ACHS, #120 achs Prov:LOWELL YOUNGBLOOD 05/25/25 Isopropyl Alcohol (Alcohol Swabs) 70 % Pad, % XX ACHS, #120 achs Prov:LOWELL YOUNGBLOOD 05/25/25 Insulin Pen Needle (FIFTY50 PEN NEEDLES 31G X) 31GX3/16 Mis, 16 XX ACHS, #120 achs Prov:LOWELL YOUNGBLOOD 05/25/25 Insulin Glargine-Yfgn (Semglee) 100 Unit/Ml Inj, 25 UNIT SC HS for 30 Days, #5 INJ Prov:LOWELL YOUNGBLOOD 05/25/25 Nutritional Supplements (Ensure High Protein) Wld Bery Liq, 240 ML PO TIDWM for 30 Days, #90 LIQ Prov:LOWELL YOUNGBLOOD 05/25/25 Multiple Vitamins W/ Minerals (Multiple Vitamins/Womens) Womens Tab, 1 TAB PO DAILY for 30 Days, #30 TAB Prov:LOWELL YOUNGBLOOD RESIDENT 05/25/25 Levothyroxine Sodium (Levothyroxine Sodium) 50 Mcg Tab, 75 MCG PO QAM@0600 for 30 Days, #30 TAB Prov:LOWELL YOUNGBLOOD RESIDENT 05/25/25 Levofloxacin Hemihydrate (LEVOFLOXACIN) 250 Mg Tab, 750 MG PO DAILY for 5 Days, #15 TAB Prov:LOWELL YOUNGBLOOD RESIDENT 05/25/25 Information Source: Patient, Spouse Mode of Arrival: Ambulatory Severity: Moderate Timing: Hours Duration: Since onset Prehospital treatment: None Past Medical History PAST MEDICAL HISTORY: Thyroid Surgical History: Unknown, Unobtainable [employer] History: Unknown, Unobtainable Family History Family History: Unknown, Unobtainable Social History Smoker: Cigarettes Alcohol: Unknown, Unobtainable Drugs: Unknown, Unobtainable Lives In: Home Constitutional: denies: chills, diaphoresis, fatigue, fever, malaise, sweats, weakness, others EENTM: denies: blurred vision, double vision, ear bleeding, ear discharge, ear drainage, ear pain, ear ringing, eye pain, eye redness, hearing loss, mouth pain, mouth swelling, nasal discharge, nose bleeding, nose congestion, nose pain, photophobia, tearing, throat pain, throat swelling, voice changes, others Respiratory: denies: cough, hemoptysis, orthopnea, SOB at rest, shortness of breath, SOB with excertion, stridor, wheezing, others Cardiovascular: denies: chest pain, dizzy spells, diaphoresis, Dyspnea on exertion, edema, irregular heart beat, left arm pain, lightheadedness, palpitations, PND, syncope, others Gastrointestinal: denies: abdomen distended, abdominal pain, blood streaked bowels, constipated, diarrhea, dysphagia, difficulty swallowing, hematemesis, melena, nausea, poor appetite, poor fluid intake, rectal bleeding, rectal pain, vomiting, others Genitourinary: denies: abnormal vagina bleeding, burning, dyspareunia, dysuria, flank pain, frequency, hematuria, incontinence, pain, , vagina discharge, urgency, others Neurological: denies: dizziness, fainting, headache, left sided numbness, left sided weakness, numbness, paresthesia, pre-existing deficit, right sided numbness, right sided weakness, seizure, speech problems, tingling, tremors, weakness, others Musculoskeletal: reports: neck pain; denies: back pain, gout, joint pain, joint swelling, muscle pain, muscle stiffness, others Integumetry: denies: bruises, change in color, change in hair/nails, dryness, laceration, lesions, lumps, rash, wounds, others Allergic/Immunocompromised: denies: Difficulty Healing, Frequent Infections, Hives, Itching, others Hematologic/Lymphatic: denies: anemia, blood clots, easy bleeding, easy bruising, swollen glands, others Endocrine: denies: excessive hunger, excessive sweating, excessive thirst, excessive urination, flushing, intolerance to cold, intolerance to heat, unexp lained weight gain, unexplained weight loss, others Psychiatric: denies: anxiety, bipolar disorder, depression, hopeless, panic disorder, schizophrenia, sleepless, suicidal, others All Other Systems: Reviewed and Negative Physical Exam General Appearance: Moderate Distress, Normal HEENT: Normal ENT Inspection, Pharynx Normal, TMs Normal Neck: Full Range of Motion, Non-Tender, Normal Inspection, Other (Swelling over the right internal jugular vein) Respiratory: Chest Non-Tender, Lungs Clear, No Accessory Muscle Use, No Respiratory Distress, Normal Breath Sounds Cardiovascular: No Edema, No JVD, No Murmur, No Gallop, Normal Peripheral Pulses, Regular Rate/Rhythm Breast Exam: Deferred Gastrointestinal: No Organomegaly, Non Tender, No Pulsatile Mass, Normal Bowel Sounds, Soft Genitalia: Deferred Pelvic: Deferred Rectal: Deferred Extremities: No calf tenderness, Normal capillary refill, Normal inspection, Normal range of motion, Non-tender, No pedal edema Musculoskeletal : Apperance: Normal Neurologic: Alert, wheelchair driver II-XII nml as Tested, No Motor Deficits, Normal Affect, Normal Mood, No Sensory Deficits Cerebellar Function: Normal Reflexes: Normal Skin: Dry, Normal Color, Warm Peripheral Pulses: 3+ Radial (R), 3+ Radial (L) Lymphatic: No Adenopathy Was a procedure done? Was a procedure done?: No Differential Dx Considerations may include: Anemia Electrolyte imbalance X-Ray, Labs, Meds, VS Vital Signs Date Time Temp Pulse Resp B/P (MAP) Pulse Ox O2 Delivery O2 Flow Rate FiO2 06/06/25 13:20 96 12 110/72 06/06/25 12:33 90 11 125/74 06/06/25 12:13 90 12 95 Room Air* 0 21 06/06/25 12:13 98.5 90 12 125/74 (91) 95 98.5 06/06/25 12:10 91 06/06/25 11:40 98.0 93 17 155/84 96 98.0 Lab Test 06/06/25 12:31 06/06/25 12:12 Range/Units Urine Color Yellow Yellow Urine Clarity Turbid H Clear Urine pH 6.0 5.0-9.0 Urine Specific [place] 1.021 1.001-1.035 Urine Protein Trace H Negative Urine Ketones Negative Negative Urine Blood Negative Negative /uL Urine Nitrite Negative Negative Urine Bilirubin Negative Negative Urine Urobilinogen 3 H Negative mg/dL Urine Leukocyte Esterase Negative Negative /uL Urine RBC 4 0 - 4 /hpf Urine Microscopic WBC 3 0-5 /HPF Urine Squamous Epithelial Cells Mod <5 /hpf Urine Bacteria None seen None Seen /hpf Urine Glucose Normal Normal mg/dL White Blood Count 11.0 H 4.4-10.8 10^3/uL Red Blood Count 4.08 4.0-5.20 10^6/uL Hemoglobin 12.6 12.2-16.2 g/dL Hematocrit 37.5 36.0-46.0 % Mean Corpuscular Volume 91.8 80.0-100.0 fL Mean Corpuscular Hemoglobin 30.7 28.0-32.0 pg Mean Corpuscular Hemoglobin Concent 33.5 32.0-36.0 g/dL Red Cell Distribution Width 13.4 11.8-14.3 % Platelet Count 355 140-450 10^3/uL Mean Platelet Volume 7.8 6.9-10.8 fL Neutrophils (%) (Auto) 72.6 37.0-80.0 % Lymphocytes (%) (Auto) 16.6 10.0-50.0 % Monocytes (%) (Auto) 9.3 0.0-12.0 % Eosinophils (%) (Auto) 0.9 0.0-7.0 % Basophils (%) (Auto) 0.6 0.0-2.0 % Neutrophils # (Auto) 8.0 1.6-8.6 10 ^3/uL Lymphocytes # (Auto) 1.8 0.4-5.4 10 ^3/uL Monocytes # (Auto) 1.0 0-1.3 10 ^3/uL Eosinophils # (Auto) 0.1 0-0.8 10 ^3/uL Basophils # (Auto) 0.1 0-0.2 10 ^3/uL Nucleated Red Blood Cells 0.0 % Prothrombin Time 11.3 9.3-11.8 sec Prothrombin Time INR 1.07 0.9-1.15 Activated Partial Thromboplast Time 32.7 24.5-34.5 SEC Sodium Level 135 L 136-145 mmol/L Potassium Level 3.9 3.5-5.1 mmol/L Chloride Level 99 98-107 mmol/L Carbon Dioxide Level 27 20-31 mmol/L Anion Gap 9 5-15 Blood Urea Nitrogen 11 9-23 mg/dL Creatinine 0.81 0.550-1.02 mg/dL Glomerular Filtration Rate Calc 90 >90 mL/min BUN/Creatinine Ratio 13.6 10.0-20.0 Serum Glucose 153 H 74-106 mg/dL Calcium Level 9.3 8.7-10.4 mg/dL Current Medications Medications (Trade) Dose Ordered Sig/Hannah Route Start Time Stop Time Status Last Admin Morphine Sulfate 4 mg ONCE ONCE IV 06/06/25 12:15 06/06/25 12:16 DC 06/06/25 12:33 Ondansetron HCl (Zofran) 4 mg ONCE ONCE IV 06/06/25 12:15 06/06/25 12:16 DC 06/06/25 12:32 Patient alert. Vitals stable. She was discharged from this hospital few weeks ago after being intubated. Answering questions. Completing sentences. No problem with airway. She does have mild swelling of the right side of the neck over the internal jugular vein. Possibly from clot from the central line. Establish intravenous access. Was given morphine. Was given Zofran. Explained to the patient. Was told to follow up with her primary care physician. Was told to come back if there is any problem. Time of 1ST Reevaluation: 12:30 Reevaluation 1ST: Unchanged Patient Education/Counseling: Diagnosis, Treatment, Prognosis Family Education/Counseling: No Family Present SEPSIS Sepsis Screen Date sepsis recognized/suspect: Jun 06, 2025 Time Sepsis recognized/suspect: 114 Recent Procedure: No On Antibiotic Therapy: No Respiratory Rate >20: No Heart Rate >90: No Temp<36 C (96.8 F) or >38.3 C: No SBP <90 or MAP <65 mmHG: No New Acute Mental Status Change: No Is the patient on CPAP, BIPAP,: No Physician Orders Neck With Contrast Soft (06/06/25 12:07) Training Development Director (06/06/25 ) Vital Signs Date Time Temp Pulse Resp B/P (MAP) Pulse Ox O2 Delivery O2 Flow Rate FiO2 06/06/25 13:20 96 12 110/72 06/06/25 12:33 90 11 125/74 06/06/25 12:13 90 12 95 Room Air* 0 21 06/06/25 12:13 98.5 90 12 125/74 (91) 95 98.5 06/06/25 12:10 91 06/06/25 11:40 98.0 93 17 155/84 96 98.0 Laboratory Tests Test 06/06/25 12:12 White Blood Count 11.0 10^3/uL (4.4-10.8) H Medications Medications Dose Ordered Sig/Hannah Route Start Time Stop Time Status Last Admin Dose Admin Morphine Sulfate 4 mg ONCE ONCE IV 06/06/25 12:15 06/06/25 12:16 DC 06/06/25 12:33 Ondansetron HCl 4 mg ONCE ONCE IV 06/06/25 12:15 06/06/25 12:16 DC 06/06/25 12:32 Departure 1 Departure Time of Disposition: 14:14 Impression: Primary Impression: DVT (deep venous thrombosis) Qualified Codes: I82.90 - Acute embolism and thrombosis of unspecified vein Additional Impressions: HTN (hypertension) Qualified Codes: I10 - Essential (primary) hypertension Uncontrolled diabetes mellitus Qualified Codes: E13.65 - Other specified diabetes mellitus with hyperglycemia Disposition: ADMITTED INPATIENT Admit to: Med Surg Condition: Guarded Critical Care Note Critical Care Time?: Yes (90 min-critical care time only) Stability Stability form required: No Heart Score Heart Score: Heart Score Response (Comments) Value History N/A 0 EKG N/A 0 Age N/A 0 Risk Factors N/A 0 Troponin N/A 0 Total 0 I personally scribed for BILL HUNTER MD ([email or web address]) on 9/16/25 at 12:10. Electronically submitted by Faith Antonio ([email or web address]). BILL HUNTER MD Jun 06, 2025 12:10
[2025-06-06 12:13] VITALS: PULSE 90; RESP 12; O2SAT 95
[2025-06-06] MEDS: ONDANSETRON HCL 4 MG/2 ML VIAL IV ONE (12:32)
[2025-06-06] MEDS: MORPHINE SULFATE 4 MG/ML SYR/VIAL IV ONE (12:33)
[2025-06-06 12:35] LABS: Hematocrit 37.5 % (36.0-46.0); Hemoglobin 12.6 g/dL (12.2-16.2); Mean Corpuscular Hemoglobin 30.7 pg (28.0-32.0); Mean Corpuscular Volume 91.8 fL (80.0-100.0); Nucleated Red Blood Cells % 0.0 %
[2025-06-06 12:45] LABS: Chloride 99 mmol/L (98-107); Potassium 3.9 mmol/L (3.5-5.1)
[2025-06-06 12:46] LABS: Anion Gap 9 (5-15); Carbon Dioxide 27 mmol/L (20-31)
[2025-06-06 12:47] LABS: Calcium 9.3 mg/dL (8.7-10.4)
[2025-06-06 12:48] LABS: Sodium 135 mmol/L (136-145)
[2025-06-06 12:52] LABS: BUN/Creatinine Ratio 13.6 (10.0-20.0); Blood Urea Nitrogen 11 mg/dL (9-23); Glucose 153 mg/dL (74-106); INR 1.07 (0.9-1.15); Partial Thromboplastin Time 32.7 SEC (24.5-34.5); Prothrombin Time 11.3 sec (9.3-11.8)
[2025-06-06 13:04] LABS: Urine Protein, UAD TRACE (Negative)
[2025-06-06] MEDS: IOHEXOL 300 MG/ML 100ML BOTTLE IJ ONE (13:52)
--- NOTE | 2025-06-06 14:40 | DVH ---
Accession Number: [id number] Clinical History: IJclot Comparison: None Technique: After the intravenous administration of intravenous contrast, multi-slice CT scan of the n ha was performed without complication. Radiation Dose Information: CT Dose: CTDI volume is 27.78 mGy. Dose-length product is 947.46 mGy*cm Findings: There is thrombosis of the right internal jugular vein extending from the level of C2 caudally. The r ight brachiocephalic vein is not contrast opacified and poorly visualized. There is increase in diame ter of the thrombosed right internal jugular vein with adjacent significant fat stranding /edema. The left internal jugular vein is unremarkable. The aorta is unremarkable left-sided arch. The major neck arterial vasculatures unremarkable. Slightly prominent right-sided level 2 lymph node which is most likely reactive. The nasopharynx, oropharynx, hypopharynx, esophagus, and larynx demonstrate normal patency and contou r without evidence of a soft tissue mass at this time. Bilaterally, the parotid, submandibular, and sublingual glands are normal in their size, shape, and a ttenuation without evidence of calcification. The visualized oral tongue, tongue base, and floor of mouth regions demonstrate no obvious mass or ab normal enhancement. The thyroid gland is normal in size, shape, and attenuation without evidence of calcification. Multiple teeth with dental caries. The apical paraseptal mild emphysematous changes. Biapical atelectasis. Impression: There is increased diameter with thrombosis of the right internal jugular vein extending from the lev el C2 caudally. There is associated significant adjacent edema.
[2025-06-06] MEDS: HEPARIN SODIUM (PORCINE) 5000 UNITS/ML 1ML VIAL IV ONE (15:29)
[2025-06-06] MEDS: HYDROmorphone HCL 2 MG/ML VL/or syr IV ONE (15:39)
[2025-06-06] MEDS: NICOTINE 14 MG/24HR TOPICAL PATCH TD ONE (17:54)
[2025-06-06] MEDS ORDERED: ONDANSETRON HCL 4 MG/2 ML VIAL IV PRN (19:30)
[2025-06-06] MEDS ORDERED: NITROGLYCERIN 0.4 MG SL TAB SL PRN (19:30)
[2025-06-06] MEDS ORDERED: DEXTROSE (50%) 50ML SYRG IV PRN (19:30)
[2025-06-06] MEDS ORDERED: MORPHINE SULFATE INJ 2 MG/ml SYRG IV PRN (19:30)
[2025-06-06 19:50] VITALS: PULSE 97; RESP 15; O2SAT 91
[2025-06-06] MEDS: HEPARIN DRIP/D5W 100UNITS/ML 250 ML IV SCH (20:59)
--- NOTE | 2025-06-06 21:04 | CONS ---
Pharmacy Clinical Information: HEPARIN 5,000 UNITS ALREADY GIVEN X1 RUN HEPARIN RATE @15 ML/HR OR 1500 UNITS/HR PER RX PROTOCOL. NEXT APTT SAMINA @0300 ON 06/07 RN JETT AWARE AND REPEATED BACK THE STARTING HEPARIN RATE TO SET AT 15 ML/HR PEBBLES KLEIN PHARMACIST Jun 06, 2025 21:04
[2025-06-06] MEDS: ACCU-CHEK COMFORT CURVE STRIP VI SCH (22:37)
[2025-06-06] MEDS: InsuLIN REG 1unit/0.01ml Soln (100units/ml) SC SCH (22:39)
[2025-06-06] MEDS: KETOROLAC TROMETH 30 MG/ML 1ML VIAL IV ONE (23:40)
[2025-06-06] MEDS: KETOROLAC TROMETH 30 MG/ML 1ML VIAL ONE (23:42)
[2025-06-07] VITALS (7 sets, daily range): BP systolic 107–140; BP diastolic 61–71; PULSE 84–110; RESP 15–19; TEMP 98.1–98.7; O2SAT 93–99
--- NOTE | 2025-06-07 02:47 | DVHHP2 ---
History of Present Illness Reason for Visit: Throat pain History of Present Illness 49-year-old female presents for evaluation of throat pain. Patient was discharged on 05/25/2025 for being admitted and treated for metabolic encephalopathy requiring intubation. She states that six days ago she developed throat pain when swallowing she felt the pain on the right side of her neck. She presented to urgent care yesterday where an ultrasound was performed and revealed a right IJ DVT. Patient was advised to present to the emergency department for further evaluation. Denies any chest pain or shortness for breath. No other acute complaints reported. Past Medical History Thyroid and diabetes mellitus Past Surgical History None Family History Noncontributory Smoke: No ALCOHOL: occassional Drugs: Other (Amphetamine abuse) Lives: with Family Review of Systems Review of Systems Review of systems are currently negative otherwise addressed in HPI. Allergies: Coded Allergies: Acetaminophen (Verified Allergy, Unknown, 05/17/25) Codeine (Verified Allergy, Unknown, 05/17/25) Uncoded Allergies: TYLENOL 3 (Allergy, Mild, 04/30/10) Medications Current Medications Medications Dose Ordered Sig/Hannah Route Start Time Stop Time Status Last Admin Dose Admin Heparin Sodium/ Dextrose 250 ml @ 15 mls/hr [id number] IV 06/06/25 19:30 06/06/25 20:59 15 MLS/HR Amlodipine Besylate 5 mg DAILY PO 06/07/25 10:00 Levothyroxine Sodium 50 mcg QAM@0600 PO 06/07/25 06:00 Diagnostic Test (Pha) 1 strip ACHS 06/06/25 22:00 06/06/25 22:37 1 STRIP Insulin Human Regular ACHS SC 06/06/25 22:00 06/06/25 22:39 2 UNITS Dextrose 50 ml UD PRN IV 06/06/25 19:30 Ondansetron HCl 4 mg Q4HP PRN IV 06/06/25 19:30 Nitroglycerin 0.4 mg Q5MINP PRN SL 06/06/25 19:30 Morphine Sulfate 2 mg Q30M PRN IV 06/06/25 19:30 Exam Vital Signs Vital Signs Date Time Temp Pulse Resp B/P (MAP) Pulse Ox O2 Delivery O2 Flow Rate FiO2 06/07/25 01:00 84 16 92/52 (65) 95 06/06/25 19:50 Room Air* 0 21 06/06/25 15:30 98.6 98.6 Exam Gen: 49-year-old female in no apparent distress. Skin: Warm, dry, normal color and texture, no rash. HEENT: Normocephalic atraumatic, mucous membranes moist and pink. Neck: Mild swelling to the right neck, thyroid gland is normal without masses. Pulmonary: Clear to auscultation and percussion bilaterally. Cardiac: Regular rate and rhythm. No murmur Abdomen: Soft, nontender, nondistended, bowel sounds present all 4 quadrants, no guarding, no rigidity, no organomegaly. Extremities: No cyanosis, clubbing, no edema Neuro: Cranial nerves II through XII grossly intact, normal affect and speech, no focal motor deficits. Labs/Xrays ORDERING PHYSICIAN: JOCELYN OLSON MD PROCEDURE(s): RUDVT - Rt Upper DVT REASON: SWELLING, MASS ORDER NUMBER(s): [id number], ACCESSION NUMBER(s): [id number] RIGHT Upper Extremity Venous Duplex Clinical History: SWELLING, MASS Comparison: None Findings: Duplex Doppler evaluation of the venous system of the RIGHT lower neck and upper extremity including color Doppler and spectral/pulsed waveform analysis was performed. Internal jugular vein demonstrates thrombus. The visualized portion of the brachiocephalic vein is patent on color Doppler evaluation without intraluminal thrombus and demonstrates waveform variability. The axillary vein demonstrates appropriate compressibility and waveform variability. The brachial veins demonstrate appropriate compressibility and patency on Doppler evaluation. The basilic vein demonstrates appropriate compressibility and patency on Doppler evaluation. The cephalic vein demonstrates appropriate compressibility and patency on Doppler evaluation. Impression: Right internal jugular thrombus. If clinical concern/symptoms persist or worsen, short-interval follow-up study is suggested. Critical Result: DVT Findings discussed with JOCELYN OLSON at 06/06/2025 11:30 AM, and acknowledged receipt and understanding of the findings. .. ORDERING PHYSICIAN: BILL HUNTER MD PROCEDURE(s): NK2CT - NECK WITH CONTRAST SOFT REASON: IJclot ORDER NUMBER(s): [id number], ACCESSION NUMBER(s): [id number] Accession Number: [id number] Clinical History: IJclot Comparison: None Technique: After the intravenous administration of intravenous contrast, multi- slice CT scan of the neck was performed without complication. Radiation Dose Information: CT Dose: CTDI volume is 27.78 mGy. Dose-length product is 947.46 mGy*cm Findings: There is thrombosis of the right internal jugular vein extending from the level of C2 caudally. The right brachiocephalic vein is not contrast opacified and poorly visualized. There is increase in diameter of the thrombosed right internal jugular vein with adjacent significant fat stranding /edema. The left internal jugular vein is unremarkable. The aorta is unremarkable left-sided arch. The major neck arterial vasculatures unremarkable. Slightly prominent right-sided level 2 lymph node which is most likely reactive. The nasopharynx, oropharynx, hypopharynx, esophagus, and larynx demonstrate normal patency and contour without evidence of a soft tissue mass at this time. Bilaterally, the parotid, submandibular, and sublingual glands are normal in their size, shape, and attenuation without evidence of calcification. The visualized oral tongue, tongue base, and floor of mouth regions demonstrate no obvious mass or abnormal enhancement. The thyroid gland is normal in size, shape, and attenuation without evidence of calcification. Multiple teeth with dental caries. The apical paraseptal mild emphysematous changes. Biapical atelectasis. Impression: There is increased diameter with thrombosis of the right internal jugular vein extending from the level C2 caudally. There is associated significant adjacent edema. ATED BY: LISA MAYO DO Labs Test 06/06/25 22:35 06/06/25 19:58 06/06/25 12:31 06/06/25 12:12 Range/Units POC Glucose 152 H 70-106 mg/dl Activated Partial Thromboplast Time 33.1 24.5-34.5 SEC Urine Color Yellow Yellow Urine Clarity Turbid H Clear Urine pH 6.0 5.0-9.0 Urine Specific [place] 1.021 1.001-1.035 Urine Protein Trace H Negative Urine Ketones Negative Negative Urine Blood Negative Negative /uL Urine Nitrite Negative Negative Urine Bilirubin Negative Negative Urine Urobilinogen 3 H Negative mg/dL Urine Leukocyte Esterase Negative Negative /uL Urine RBC 4 0 - 4 /hpf Urine Microscopic WBC 3 0-5 /HPF Urine Squamous Epithelial Cells Mod <5 /hpf Urine Bacteria None seen None Seen /hpf Urine Glucose Normal Normal mg/dL White Blood Count 11.0 H 4.4-10.8 10^3/uL Red Blood Count 4.08 4.0-5.20 10^6/uL Hemoglobin 12.6 12.2-16.2 g/dL Hematocrit 37.5 36.0-46.0 % Mean Corpuscular Volume 91.8 80.0-100.0 fL Mean Corpuscular Hemoglobin 30.7 28.0-32.0 pg Mean Corpuscular Hemoglobin Concent 33.5 32.0-36.0 g/dL Red Cell Distribution Width 13.4 11.8-14.3 % Platelet Count 355 140-450 10^3/uL Mean Platelet Volume 7.8 6.9-10.8 fL Neutrophils (%) (Auto) 72.6 37.0-80.0 % Lymphocytes (%) (Auto) 16.6 10.0-50.0 % Monocytes (%) (Auto) 9.3 0.0-12.0 % Eosinophils (%) (Auto) 0.9 0.0-7.0 % Basophils (%) (Auto) 0.6 0.0-2.0 % Neutrophils # (Auto) 8.0 1.6-8.6 10 ^3/uL Lymphocytes # (Auto) 1.8 0.4-5.4 10 ^3/uL Monocytes # (Auto) 1.0 0-1.3 10 ^3/uL Eosinophils # (Auto) 0.1 0-0.8 10 ^3/uL Basophils # (Auto) 0.1 0-0.2 10 ^3/uL Nucleated Red Blood Cells 0.0 % Prothrombin Time 11.3 9.3-11.8 sec Prothrombin Time INR 1.07 0.9-1.15 Sodium Level 135 L 136-145 mmol/L Potassium Level 3.9 3.5-5.1 mmol/L Chloride Level 99 98-107 mmol/L Carbon Dioxide Level 27 20-31 mmol/L Anion Gap 9 5-15 Blood Urea Nitrogen 11 9-23 mg/dL Creatinine 0.81 0.550-1.02 mg/dL Glomerular Filtration Rate Calc 90 >90 mL/min BUN/Creatinine Ratio 13.6 10.0-20.0 Serum Glucose 153 H 74-106 mg/dL Calcium Level 9.3 8.7-10.4 mg/dL SEPSIS Sepsis Screen Date sepsis recognized/suspect: Jun 06, 2025 Time Sepsis recognized/suspect: 1212 Recent Procedure: No On Antibiotic Therapy: No Respiratory Rate >20: No Heart Rate >90: No Temp<36 C (96.8 F) or >38.3 C: No SBP <90 or MAP <65 mmHG: No New Acute Mental Status Change: No Is the patient on CPAP, BIPAP,: No Physician Orders Platelet Monitoring (06/06/25:) Vte Protocol Initiated (06/06/25:) Heparin Per Standardized Proce (06/06/25) Discontinue All Im Injections (06/06/25:) Heparin Drip/D5w 100units/Ml (06/06/25:30) Amlodipine Tablet (Norvasc Tablet) (06/07/25 10:00) Levothyroxine Tablet (Synthroid Tablet) (06/07/25 06:00) Consistent Carb(Ccho)Diabetes (06/07/25 Breakfast) Glucose Blood (Accu-Chek Comfort Curve T (06/06/25 22:00) Insulin R (Human) (Insulin R) (06/06/25 22:00) Dextrose 50% Syringe (06/06/25:30) Admit (06/06/25:) Ondansetron Hcl (Zofran) (06/06/25 19:30) Complete Blood Count (06/07/25 04:00) Condition: Stable (06/06/25:) Bedrest With Bathroom Privileg (06/06/25:20) Nitroglycerin Sublingual (Ntrostat Subli (06/06/25 19:30) Morphine Sulfate Injection (06/06/25:30) Stat Ekg For Chest Pain (06/06/25:20) Notify Of Changes From Base (06/06/25:) Residential Team Leader For 24 Hours (06/06/25:20) Emergency Dysrhythmia Protocol (06/06/25:20) Rhythm Strips Once Every Shift (06/06/25 19:20) Oxygen By Nasal Cannula (06/06/25:20) Basic Metabolic Panel (06/07/25 04:00) PTPTT (06/07/25 03:00) Heparin Per Pharmacy Protocol (06/06/25 21:02) Vital Signs Date Time Temp Pulse Resp B/P (MAP) Pulse Ox O2 Delivery O2 Flow Rate FiO2 06/07/25 01:00 84 16 92/52 (65) 95 06/07/25 00:00 95 06/06/25 23:00 98 14 100/57 (71) 94 06/06/25 21:00 93 15 113/65 (81) 95 06/06/25 20:00 88 06/06/25 19:50 97 15 91 Room Air* 0 21 06/06/25 19:00 81 12 121/64 (83) 98 Medications Medications Dose Ordered Sig/Hannah Route Start Time Stop Time Status Last Admin Dose Admin Diagnostic Test (Pha) 1 strip ACHS 06/06/25 22:00 06/06/25 22:37 1 STRIP Heparin Sodium (Porcine) 5,000 units ONCE ONCE IV 06/06/25 15:00 06/06/25 15:01 DC 06/06/25 15:29 5,000 UNITS Heparin Sodium/ Dextrose 250 ml @ 15 mls/hr [id number] IV 06/06/25 19:30 06/06/25 20:59 15 MLS/HR Hydromorphone HCl 0.5 mg ONCE ONCE IV 06/06/25 15:15 06/06/25 15:16 DC 06/06/25 15:39 0.5 MG Insulin Human Regular ACHS SC 06/06/25 22:00 06/06/25 22:39 2 UNITS Ketorolac Tromethamine 30 mg ONCE ONCE IV 06/06/25 23:30 06/07/25 01:09 DC 06/06/25 23:40 30 MG Nicotine 1 patch ONCE ONCE TD 06/06/25 17:45 06/06/25 17:46 DC 06/06/25 17:54 1 PATCH Assessment/Plan Assessment/Plan Assessment Right internal jugular DVT Diabetes mellitus Hypertension Plan Admit the patient to telemetry to the hospitalist Heparin drip Radiology consult Resume home medications Continue treatment per orders Plan discussed with: Patient My Orders Orders - WILL LUJAN AGACNRoger Procedure Category Date Status Time Platelet Monitoring [facility] 06/06/25 In Process 19:20 Vte Protocol Initiated [facility] 06/06/25 In Process 19:20 Heparin Per [facility] 06/06/25 In Process Standardized Proce 19:20 Discontinue All Im SHAN 06/06/25 In Process Injections 19:20 Heparin Drip/D5w PHA 06/06/25 In Process 100units/Ml 19:30 Amlodipine Tablet PHA 06/07/25 In Process (Norvasc Tablet) 10:00 Levothyroxine Tablet PHA 06/07/25 In Process (Synthroid Tablet) 06:00 Consistent DIET 06/07/25 Transmitted Carb(Ccho)Diabetes Breakfast Glucose Blood PHA 06/06/25 In Process (Accu-Chek Comfort 22:00 Insulin R (Human) PHA 06/06/25 In Process (Insulin R) 22:00 Dextrose 50% Syringe PHA 06/06/25 In Process 19:30 Admit ADMIT 06/06/25 Transmitted 19:20 Ondansetron Hcl [facility] 06/06/25 In Process (Zofran) 19:30 Complete Blood Count LAB 06/07/25 Logged 04:00 Condition: Stable [facility] 06/06/25 In Process 19:20 Bedrest With Bathroom [facility] 06/06/25 In Process Privileg 19:20 Nitroglycerin [facility] 06/06/25 In Process Sublingual (Ntrostat 19:30 Morphine Sulfate PHA 06/06/25 In Process Injection 19:30 Stat Ekg For Chest [facility] 06/06/25 In Process Pain 19:20 Notify Of Changes [facility] 06/06/25 In Process From Base 19:20 Residential Team Leader For [facility] 06/06/25 In Process 24 Hours 19:20 Emergency Dysrhythmia [facility] 06/06/25 In Process Protocol 19:20 Rhythm Strips Once [facility] 06/06/25 In Process Every Shift 19:20 Oxygen By Nasal RT 06/06/25 Transmitted Cannula 19:20 Basic Metabolic Panel LAB 06/07/25 Logged 04:00 PTPTT LAB 06/07/25 Logged 03:00 Heparin Per Pharmacy [facility] 06/06/25 In Process Protocol 21:02 Date of Service: Jun 06, 2025 Billing Provider: WILL LUJAN Common Visit Codes: [id number] INP/OBS CARE (HIGH) WILL LUJAN Jun 07, 2025 02:47
[2025-06-07 04:03] LABS: Calcium 9.2 mg/dL (8.7-10.4); Potassium 3.7 mmol/L (3.5-5.1)
[2025-06-07 04:04] LABS: Anion Gap 10 (5-15); Carbon Dioxide 26 mmol/L (20-31)
[2025-06-07 04:09] LABS: BUN/Creatinine Ratio 11.2 (10.0-20.0); Blood Urea Nitrogen 10 mg/dL (9-23)
[2025-06-07 04:14] LABS: Chloride 97 mmol/L (98-107); Glucose 166 mg/dL (74-106); Sodium 133 mmol/L (136-145)
[2025-06-07 04:19] LABS: Hematocrit 36.3 % (36.0-46.0); Hemoglobin 12.3 g/dL (12.2-16.2); Mean Corpuscular Hemoglobin 31.1 pg (28.0-32.0); Mean Corpuscular Volume 92.1 fL (80.0-100.0); Nucleated Red Blood Cells % 0.1 %
[2025-06-07 05:19] LABS: INR 1.13 (0.9-1.15); Partial Thromboplastin Time 58.3 SEC (24.5-34.5); Prothrombin Time 11.8 sec (9.3-11.8)
[2025-06-07] MEDS: LEVOTHYROXINE SODIUM 50 MCG TAB PO SCH (06:00)
[2025-06-07 10:11] LABS: INR 1.07 (0.9-1.15); Partial Thromboplastin Time 68.3 SEC (24.5-34.5); Prothrombin Time 11.3 sec (9.3-11.8)
[2025-06-07] MEDS: MORPHINE SULFATE INJ 2 MG/ml SYRG IV PRN (13:40)
[2025-06-07] MEDS: NICOTINE 14 MG/24HR TOPICAL PATCH TD SCH (13:41)
--- NOTE | 2025-06-07 15:28 | DVHPN2 ---
Reviewed: H&P Changes from previous H/P or p: No Changes General: Per HPI Objective Vitals Vital Signs Date Time Temp Pulse Resp B/P (MAP) Pulse Ox O2 Delivery O2 Flow Rate FiO2 06/07/25 13:40 88 18 144/71 06/07/25 12:48 98.1 93 98.1 06/07/25 07:45 Room Air* 0 21 Intake/Output Intake and Output 06/07/25 07:00 Intake Total 655 ml Output Total 300 ml Balance 355 ml Intake IV Total 15 ml Other 640 ml Output Urine Total 300 ml Exam GEN: Healthy appearing, well-developed, NAD. HEENT: NC/AT; MMM. Right neck with swelling/erythema CV: RRR, no m/r/g. LUNGS: CTAB, no w/r/c. ABD: Soft, NT/ND, NBS, no masses or organomegaly. EXT: skin Warm, well perfused. no rashes. No clubbing, cyanosis, or edema. NEURO: Ambulating with no limitations. No focal deficits. Medications Current Medications Medications Dose Ordered Sig/Hannah Route Start Time Stop Time Status Last Admin Dose Admin Heparin Sodium/ Dextrose 250 ml @ 15 mls/hr [id number] IV 06/06/25 19:30 06/07/25 12:41 15 MLS/HR Amlodipine Besylate 5 mg DAILY PO 06/07/25 10:00 06/07/25 12:48 5 MG Levothyroxine Sodium 50 mcg QAM@0600 PO 06/07/25 06:00 06/07/25 06:00 50 MCG Diagnostic Test (Pha) 1 strip ACHS 06/06/25 22:00 06/07/25 12:37 1 STRIP Insulin Human Regular ACHS SC 06/06/25 22:00 06/07/25 07:42 2 UNITS Dextrose 50 ml UD PRN IV 06/06/25 19:30 Ondansetron HCl 4 mg Q4HP PRN IV 06/06/25 19:30 Nitroglycerin 0.4 mg Q5MINP PRN SL 06/06/25 19:30 Morphine Sulfate 2 mg Q30M PRN IV 06/06/25 19:30 Morphine Sulfate 2 mg Q6HPRN PRN IV 06/07/25 12:45 06/07/25 13:40 2 MG Diphenhydramine HCl 25 mg Q6HP PRN IV 06/07/25 13:00 Nicotine 1 patch DAILY TD 06/07/25 13:15 06/07/25 13:41 1 PATCH Laboratory Results Laboratory Tests 06/07/25 03:20 Chemistry Test 06/07/25 03:20 Calcium Level 9.2 mg/dL (8.7-10.4) Coagulation Test 06/06/25 19:58 06/07/25 03:20 06/07/25 09:32 Activated Partial Thromboplast Time 33.1 SEC (24.5-34.5) 58.3 SEC (24.5-34.5) H 68.3 SEC (24.5-34.5) H Prothrombin Time 11.8 sec (9.3-11.8) 11.3 sec (9.3-11.8) Prothrombin Time INR 1.13 (0.9-1.15) 1.07 (0.9-1.15) Urinalysis Test 06/06/25 12:31 Urine Color Yellow (Yellow) Urine Clarity Turbid (Clear) H Urine pH 6.0 (5.0-9.0) Urine Specific [place] 1.021 (1.001-1.035) Urine Protein Trace (Negative) H Urine Ketones Negative (Negative) Urine Blood Negative /uL (Negative) Urine Nitrite Negative (Negative) Urine Bilirubin Negative (Negative) Urine Urobilinogen 3 mg/dL (Negative) H Urine Leukocyte Esterase Negative /uL (Negative) Urine RBC 4 /hpf (0 - 4) Urine Microscopic WBC 3 /HPF (0-5) Urine Squamous Epithelial Cells Mod /hpf (<5) Urine Bacteria None seen /hpf (None Seen) Urine Glucose Normal mg/dL (Normal) Labs and/or images reviewed: Labs reviewed by me, Image(s) reviewed by me Assessment/Plan Assessment/Plan 49-year-old female w Past Medical History Thyroid and diabetes mellitus presents for evaluation of throat pain. Patient was discharged on 05/25/2025 for being admitted and treated for metabolic encephalopathy requiring intubation. She states that six days ago she developed throat pain when swallowing she felt the pain on the right side of her neck. She presented to urgent care yesterday where an ultrasound was performed and revealed a right IJ DVT. Patient was advised to present to the emergency department for further evaluation. Denies any chest pain or shortness for breath. No other acute complaints reported. 06/07: CT neck with contrast was done showing increased diameter thrombosis right IJ ascending from level C2 caudally. And significant adjacent edema. Patient resumed on home medications and started on heparin drip. Waiting for Radiology eval. - a we will continue heparin for 8 hours, and warm compress q.4 hour, start p.o. ibuprofen 600 b.i.d., start Protonix 40 IV daily, continue pain control with [place] and Dilaudid. Start Unasyn IV dx Right internal jugular DVT Diabetes mellitus Hypertension Plan: Heparin drip Radiologist consult Pain analgesia prn Antibiotics Iv Unasyn Antiemetics prn Continue home meds Tele Full code Plan discussed with: Patient My Orders Orders - SHANE BARRERA MD Procedure Category Date Status Time Morphine Sulfate PHA 06/07/25 In Process Injection 12:45 Diphenhdramine PHA 06/07/25 In Process Injection (Benadryl 13:00 Nicotine 14mg/24hr PHA 06/07/25 In Process (Nicoderm 14mg/24hr) 13:15 Date of Service: Jun 07, 2025 Billing Provider: SHANE BARRERA MD Common Visit Codes: [id number] INP/OBS CARE(HIGH) SHANE BARRERA MD Jun 07, 2025 15:28
[2025-06-07 16:48] LABS: INR 1.08 (0.9-1.15); Partial Thromboplastin Time 62.8 SEC (24.5-34.5); Prothrombin Time 11.4 sec (9.3-11.8)
[2025-06-07] MEDS ORDERED: AMPICILLIN & SULBACTAM SODIUM 3 GM in SODIUM CHL 0.9% 100 ML IV SCH (17:00)
[2025-06-07] MEDS: diphenhdrAMINE HCL 50 MG/1 ML VL IV PRN (17:22)
[2025-06-07] MEDS: HYDROmorphone HCL 2 MG/ML VL/or syr IV PRN (19:07)
[2025-06-07] MEDS: IBUPROFEN 600 MG TAB PO SCH (20:58)
[2025-06-07] MEDS: AMPICILLIN & SULBACTAM SODIUM 3 GM in SODIUM CHL 0.9% 100 ML IV SCH (22:00)
[2025-06-08] VITALS (9 sets, daily range): BP systolic 101–119; BP diastolic 53–75; PULSE 72–100; RESP 16–19; TEMP 97.8–98.5; O2SAT 92–97
[2025-06-08 04:29] LABS: Hematocrit 35.8 % (36.0-46.0); Hemoglobin 12.4 g/dL (12.2-16.2); Mean Corpuscular Hemoglobin 31.5 pg (28.0-32.0); Mean Corpuscular Volume 90.9 fL (80.0-100.0); Nucleated Red Blood Cells % 0.0 %
[2025-06-08 04:44] LABS: Albumin 3.9 g/dL (3.2-4.8); Anion Gap 10 (5-15); BUN/Creatinine Ratio 18.2 (10.0-20.0); Blood Urea Nitrogen 14 mg/dL (9-23); Calcium 9.0 mg/dL (8.7-10.4); Carbon Dioxide 25 mmol/L (20-31); Chloride 101 mmol/L (98-107); Potassium 3.6 mmol/L (3.5-5.1); Sodium 136 mmol/L (136-145); Total Protein 7.0 g/dL (5.7-8.2)
[2025-06-08 04:45] LABS: Bilirubin, Total 0.7 mg/dL (0.2-1.0)
[2025-06-08 04:47] LABS: Alanine Aminotransferase 86 U/L (7-40); Alkaline Phosphatase 190 U/L (46-116); Glucose 114 mg/dL (74-106)
[2025-06-08 05:09] LABS: INR 1.09 (0.9-1.15); Prothrombin Time 11.5 sec (9.3-11.8)
[2025-06-08 05:22] LABS: Partial Thromboplastin Time 77.7 SEC (24.5-34.5)
[2025-06-08] MEDS: HEPARIN DRIP/D5W 100UNITS/ML 250 ML IV SCH (05:29)
[2025-06-08] MEDS ORDERED: NICOTINE 14 MG/24HR TOPICAL PATCH TD SCH (10:00)
[2025-06-08] MEDS: PANTOPRAZOLE 40 MG/10 ML VIAL INJ IV SCH (10:13)
[2025-06-08] MEDS: NICOTINE 7MG/24HR TOPICAL PATCH TD SCH (10:14)
--- NOTE | 2025-06-08 11:31 | DVHPN2 ---
Reviewed: H&P Changes from previous H/P or p: No Changes General: Per HPI Objective Vitals Vital Signs Date Time Temp Pulse Resp B/P (MAP) Pulse Ox O2 Delivery O2 Flow Rate FiO2 06/08/25 10:12 101/62 06/08/25 09:00 98.1 76 18 95 98.1 06/07/25 21:42 Room Air* 0 21 Intake/Output Intake and Output 06/08/25 07:00 Intake Total 1030 ml Balance 1030 ml Intake Oral 830 ml IV Total 200 ml # Voids 5 # Bowel Movements 1 Exam GEN: Healthy appearing, well-developed, NAD. HEENT: NC/AT; MMM. Right neck with swelling/erythema CV: RRR, no m/r/g. LUNGS: CTAB, no w/r/c. ABD: Soft, NT/ND, NBS, no masses or organomegaly. EXT: skin Warm, well perfused. no rashes. No clubbing, cyanosis, or edema. NEURO: Ambulating with no limitations. No focal deficits. Medications Current Medications Medications Dose Ordered Sig/Hannah Route Start Time Stop Time Status Last Admin Dose Admin Amlodipine Besylate 5 mg DAILY PO 06/07/25 10:00 06/08/25 10:12 5 MG Levothyroxine Sodium 50 mcg QAM@0600 PO 06/07/25 06:00 06/08/25 05:28 50 MCG Diagnostic Test (Pha) 1 strip ACHS 06/06/25 22:00 06/08/25 05:28 1 STRIP Insulin Human Regular ACHS SC 06/06/25 22:00 06/07/25 21:21 4 UNITS Dextrose 50 ml UD PRN IV 06/06/25 19:30 Ondansetron HCl 4 mg Q4HP PRN IV 06/06/25 19:30 Nitroglycerin 0.4 mg Q5MINP PRN SL 06/06/25 19:30 Morphine Sulfate 2 mg Q30M PRN IV 06/06/25 19:30 Diphenhydramine HCl 25 mg Q6HP PRN IV 06/07/25 13:00 06/07/25 17:22 25 MG Pantoprazole Sodium 40 mg DAILY IV 06/08/25 10:00 06/08/25 10:13 40 MG Ibuprofen 600 mg BID PO 06/07/25 22:00 06/08/25 10:13 600 MG Oxycodone HCl 10 mg Q6HPRN PRN PO 06/07/25 17:00 06/08/25 05:44 10 MG Hydromorphone HCl 0.5 mg Q4HPRN PRN IV 06/07/25 17:00 06/07/25 19:07 0.5 MG Nicotine 1 patch DAILY TD 06/08/25 10:00 06/08/25 10:14 1 PATCH Ampicillin Sodium/ Sulbactam Sodium 3 gm/Sodium Chloride 100 ml @ 100 mls/hr Q6H IV 06/07/25 21:00 06/08/25 10:11 100 MLS/HR Heparin Sodium/ Dextrose 250 ml @ 13 mls/hr [id number] IV 06/08/25 05:30 06/08/25 05:29 13 MLS/HR Laboratory Results Laboratory Tests 06/08/25 03:58 Chemistry Test 06/08/25 03:58 Albumin 3.9 g/dL (3.2-4.8) Calcium Level 9.0 mg/dL (8.7-10.4) Total Protein 7.0 g/dL (5.7-8.2) Coagulation Test 06/07/25 16:15 06/08/25 03:58 Prothrombin Time 11.4 sec (9.3-11.8) 11.5 sec (9.3-11.8) Prothrombin Time INR 1.08 (0.9-1.15) 1.09 (0.9-1.15) Activated Partial Thromboplast Time 62.8 SEC (24.5-34.5) H 77.7 SEC (24.5-34.5) *H LFT Test 06/08/25 03:58 Alanine Aminotransferase (ALT) 86 U/L (7-40) H Alkaline Phosphatase 190 U/L (46-116) H Aspartate Amino Transferase (AST) 39 U/L (13-40) Total Bilirubin 0.7 mg/dL (0.2-1.0) Urinalysis Test 06/06/25 12:31 Urine Color Yellow (Yellow) Urine Clarity Turbid (Clear) H Urine pH 6.0 (5.0-9.0) Urine Specific [place] 1.021 (1.001-1.035) Urine Protein Trace (Negative) H Urine Ketones Negative (Negative) Urine Blood Negative /uL (Negative) Urine Nitrite Negative (Negative) Urine Bilirubin Negative (Negative) Urine Urobilinogen 3 mg/dL (Negative) H Urine Leukocyte Esterase Negative /uL (Negative) Urine RBC 4 /hpf (0 - 4) Urine Microscopic WBC 3 /HPF (0-5) Urine Squamous Epithelial Cells Mod /hpf (<5) Urine Bacteria None seen /hpf (None Seen) Urine Glucose Normal mg/dL (Normal) Labs and/or images reviewed: Labs reviewed by me, Image(s) reviewed by me Assessment/Plan Assessment/Plan 49-year-old female w Past Medical History Thyroid and diabetes mellitus presents for evaluation of throat pain. Patient was discharged on 05/25/2025 for being admitted and treated for metabolic encephalopathy requiring intubation. She states that six days ago she developed throat pain when swallowing she felt the pain on the right side of her neck. She presented to urgent care yesterday where an ultrasound was performed and revealed a right IJ DVT. Patient was advised to present to the emergency department for further evaluation. Denies any chest pain or shortness for breath. No other acute complaints reported. 06/07: CT neck with contrast was done showing increased diameter thrombosis right IJ ascending from level C2 caudally. And significant adjacent edema. Patient resumed on home medications and started on heparin drip. Waiting for Radiology eval. - a we will continue heparin for 8 hours, and warm compress q.4 hour, start p.o. ibuprofen 600 b.i.d., start Protonix 40 IV daily, continue pain control with [place] and Dilaudid. Start Unasyn IV 06/08: Patient is feeling better,. Today we will continue IV antibiotics continue pain control. Continue heparin drip. Start baclofen 10 b.i.d.. Continue warm compress. We will reassess tomorrow. We will likely need 3 months of Xarelto versus Eliquis. ... will consider steroid x1 tomorrow if improving but still room for improvment dx Right internal jugular DVT Diabetes mellitus Hypertension Plan: Heparin drip Radiologist consult Pain analgesia prn Antibiotics Iv Unasyn Antiemetics prn Continue home meds Tele Full code Plan discussed with: Patient My Orders Orders - SHANE BARRERA MD Procedure Category Date Status Time Diphenhdramine PHA 06/07/25 In Process Injection (Benadryl 13:00 * Radiologist Consult CONS 06/07/25 Transmitted 15:27 Pantoprazole PHA 06/08/25 In Process (Protonix) 10:00 Ibuprofen Tablet PHA 06/07/25 In Process (Motrin Tablet) 22:00 Oxycodone Er Tablet PHA 06/07/25 In Process (Oxycontin Er Tablet 17:00 Hydromorphone PHA 06/07/25 In Process Injection (Dilaudid 17:00 Nicotine 7mg/24hr PHA 06/08/25 In Process (Nicoderm 7mg/24hr) 10:00 Ampicillin & PHA 06/07/25 In Process Sulbactam Sodium 21:00 Communication Order ORDERS 06/07/25 Transmitted 19:21 * Alteration Inspector CONS 06/07/25 Transmitted Consult Mrsa Screen [place] 06/07/25 In Process 22:03 Date of Service: Jun 08, 2025 Billing Provider: SHANE BARRERA MD Common Visit Codes: [id number] INP/OBS CARE(HIGH) SHANE BARRERA MD Jun 08, 2025 11:31
[2025-06-08 12:33] LABS: INR 1.08 (0.9-1.15); Partial Thromboplastin Time 64.1 SEC (24.5-34.5); Prothrombin Time 11.4 sec (9.3-11.8)
--- NOTE | 2025-06-08 13:20 | CONS ---
Pharmacy Clinical Information: HEPARIN DRIP, DVT PROTOCOL @1205 APTT 64.1 - NO BOLUS / NO CHANGE NEXT APTT DRAW SCHEDULED @1800 PER RX PROTOCOL CONFIRMED AND READ BACK WITH RN CIERA [facility] RESIDENT Jun 08, 2025 13:20
[2025-06-08] MEDS: BACLOFEN 10 MG TAB PO SCH (16:42)
[2025-06-08 19:17] LABS: INR 1.03 (0.9-1.15); Partial Thromboplastin Time 55.8 SEC (24.5-34.5); Prothrombin Time 10.9 sec (9.3-11.8)
[2025-06-09 00:41] LABS: INR 1.03 (0.9-1.15); Partial Thromboplastin Time 58.4 SEC (24.5-34.5); Prothrombin Time 10.9 sec (9.3-11.8)
[2025-06-09 01:00] VITALS: BP 98/65; PULSE 88; RESP 19; TEMP 97.8; O2SAT 95
[2025-06-09 05:00] VITALS: BP 108/62; PULSE 66; RESP 17; TEMP 98; O2SAT 98
[2025-06-09 06:46] LABS: Hematocrit 34.1 % (36.0-46.0); Hemoglobin 11.7 g/dL (12.2-16.2); Mean Corpuscular Hemoglobin 31.0 pg (28.0-32.0); Mean Corpuscular Volume 90.5 fL (80.0-100.0); Nucleated Red Blood Cells % 0.1 %
[2025-06-09 06:50] LABS: INR 1.05 (0.9-1.15); Partial Thromboplastin Time 67.2 SEC (24.5-34.5); Prothrombin Time 11.1 sec (9.3-11.8)
[2025-06-09 08:00] VITALS: PULSE 61
--- NOTE | 2025-06-09 08:00 | CONS ---
Pharmacy Clinical Information: HEPARIN DRIP UPDATE 06/09/25@0800 aPTT 67.2 NO CHANGE NEXT aPTT SCHEDULED FOR 06/10/25 @0400 COMMUNICATED WITH RN CARMINE PERAZA PHARMACIST Jun 09, 2025 08:00
[2025-06-09 08:35] VITALS: BP 104/69; PULSE 74; RESP 16; TEMP 97.8; O2SAT 93
[2025-06-09 12:33] VITALS: BP 112/77; PULSE 73; RESP 16; TEMP 97.9; O2SAT 94
[2025-06-09] MEDS ORDERED: BACL10TA PO (14:33)
[2025-06-09] MEDS ORDERED: RIVA20TA PO (14:33)
[2025-06-09] MEDS ORDERED: AUG875T PO (14:33)
[2025-06-09] MEDS ORDERED: RIVA10TA PO (14:33)
--- NOTE | 2025-06-09 14:33 | DVHDS2 ---
Discharge Summary Date of Admission Jun 06, 2025 at 19:20 Date of Discharge: Jun 09, 2025 Labs/Diagnostic Data: Laboratory Results Test 06/09/25 06:20 06/08/25 22:48 06/08/25 03:58 06/06/25 12:31 White Blood Count 6.9 10^3/uL (4.4-10.8) Red Blood Count 3.77 10^6/uL (4.0-5.20) Hemoglobin 11.7 g/dL (12.2-16.2) Hematocrit 34.1 % (36.0-46.0) Mean Corpuscular Volume 90.5 fL (80.0-100.0) Mean Corpuscular Hemoglobin 31.0 pg (28.0-32.0) Mean Corpuscular Hemoglobin Concent 34.2 g/dL (32.0-36.0) Red Cell Distribution Width 13.1 % (11.8-14.3) Platelet Count 364 10^3/uL (140-450) Mean Platelet Volume 8.0 fL (6.9-10.8) Neutrophils (%) (Auto) 65.4 % (37.0-80.0) Lymphocytes (%) (Auto) 21.4 % (10.0-50.0) Monocytes (%) (Auto) 10.5 % (0.0-12.0) Eosinophils (%) (Auto) 2.2 % (0.0-7.0) Basophils (%) (Auto) 0.5 % (0.0-2.0) Neutrophils # (Auto) 4.5 10 ^3/uL (1.6-8.6) Lymphocytes # (Auto) 1.5 10 ^3/uL (0.4-5.4) Monocytes # (Auto) 0.7 10 ^3/uL (0-1.3) Eosinophils # (Auto) 0.1 10 ^3/uL (0-0.8) Basophils # (Auto) 0 10 ^3/uL (0-0.2) Nucleated Red Blood Cells 0.1 % Prothrombin Time 11.1 sec (9.3-11.8) Prothrombin Time INR 1.05 (0.9-1.15) Activated Partial Thromboplast Time 67.2 SEC (24.5-34.5) POC Glucose 197 mg/dl (70-106) Sodium Level 136 mmol/L (136-145) Potassium Level 3.6 mmol/L (3.5-5.1) Chloride Level 101 mmol/L (98-107) Carbon Dioxide Level 25 mmol/L (20-31) Anion Gap 10 (5-15) Blood Urea Nitrogen 14 mg/dL (9-23) Creatinine 0.77 mg/dL (0.550-1.02) Glomerular Filtration Rate Calc 96 mL/min (>90) BUN/Creatinine Ratio 18.2 (10.0-20.0) Serum Glucose 114 mg/dL (74-106) Calcium Level 9.0 mg/dL (8.7-10.4) Total Bilirubin 0.7 mg/dL (0.2-1.0) Aspartate Amino Transferase (AST) 39 U/L (13-40) Alanine Aminotransferase (ALT) 86 U/L (7-40) Alkaline Phosphatase 190 U/L (46-116) Total Protein 7.0 g/dL (5.7-8.2) Albumin 3.9 g/dL (3.2-4.8) Urine Color Yellow (Yellow) Urine Clarity Turbid (Clear) Urine pH 6.0 (5.0-9.0) Urine Specific [place] 1.021 (1.001-1.035) Urine Protein Trace (Negative) Urine Ketones Negative (Negative) Urine Blood Negative /uL (Negative) Urine Nitrite Negative (Negative) Urine Bilirubin Negative (Negative) Urine Urobilinogen 3 mg/dL (Negative) Urine Leukocyte Esterase Negative /uL (Negative) Urine RBC 4 /hpf (0 - 4) Urine Microscopic WBC 3 /HPF (0-5) Urine Squamous Epithelial Cells Mod /hpf (<5) Urine Bacteria None seen /hpf (None Seen) Urine Glucose Normal mg/dL (Normal) Other Laboratory Tests 06/09/25 06:20 06/08/25 03:58 Brief Hx & Hospital Course: 49-year-old female w Past Medical History Thyroid and diabetes mellitus presents for evaluation of throat pain. Patient was discharged on 05/25/2025 for being admitted and treated for metabolic encephalopathy requiring intubation. She states that six days ago she developed throat pain when swallowing she felt the pain on the right side of her neck. She presented to urgent care yesterday where an ultrasound was performed and revealed a right IJ DVT. Patient was advised to present to the emergency department for further evaluation. Denies any chest pain or shortness for breath. No other acute complaints reported. 06/07: CT neck with contrast was done showing increased diameter thrombosis right IJ ascending from level C2 caudally. And significant adjacent edema. Patient resumed on home medications and started on heparin drip. Waiting for Radiology eval. - a we will continue heparin for 8 hours, and warm compress q.4 hour, start p.o. ibuprofen 600 b.i.d., start Protonix 40 IV daily, continue pain control with [place] and Dilaudid. Start Unasyn IV 06/08: Patient is feeling better,. Today we will continue IV antibiotics continue pain control. Continue heparin drip. Start baclofen 10 b.i.d.. Continue warm compress. We will reassess tomorrow. We will likely need 3 months of Xarelto versus Eliquis. ... will consider steroid x1 tomorrow if improving but still room for improvement 06/09: Patient has continued to improve. Likely discharge today. Giving Solu- Medrol 41 time today. Patient can thereafter continue 3 months Xarelto 10 mg twice daily for 7 days then 20 mg daily for 3 months,. Augmentin 875 mg twice daily for 5 days. Take baclofen 10 mg twice daily for 7 days. For pain take Tylenol 1st line, ibuprofen second-line, [place] 5 mg up to 4 times daily as needed as 3rd line. Diagnosis: Right internal jugular DVT Acute Cellulitis, in overlying region right IJ/right shoulder/right neck Diabetes mellitus with hyperglycemia Hypertension Discharge plan: - continue 3 months Xarelto 10 mg twice daily for 7 days then 20 mg daily for 3 months,. - Augmentin 875 mg twice daily for 5 days. - Take baclofen 10 mg twice daily for 7 days. - For pain take Tylenol 1st line, ibuprofen second-line, [place] 5 mg up to 4 times daily as needed as 3rd line. - followup with pcp to review discharge. pcp to review improvement of R IJ DVT. Condition at Discharge: Fair Final Diagnosis/Problems List Right internal jugular DVT Acute Cellulitis, in overlying region right IJ/right shoulder/right neck Diabetes mellitus with hyperglycemia Hypertension Discharge Disposition: Home Discharge Instruct/Medications Scheduled Amoxicillin Trihydrate (Amoxicillin), 1 TAB PO TID Insulin Glargine-Yfgn (Semglee), 25 UNIT SC HS Levofloxacin Hemihydrate (Levofloxacin), 750 MG PO DAILY Levothyroxine Sodium (Levothyroxine Sodium), 75 MCG PO QAM@0600 Multiple Vitamins W/ Minerals (Multiple Vitamins/Womens), 1 TAB PO DAILY Nutritional Supplements (Ensure High Protein), 240 ML PO TIDWM Prednisone (Prednisone), 10 MG PO DAILY Durable Medical Equipment Blood Glucose Monitoring Suppl (Tgt Blood Glucose Monitor), EA XX ACHS, (DME) Insulin Pen Needle (Fifty50 Pen [place] 31G X), 16 XX ACHS, (DME) Isopropyl Alcohol (Alcohol Swabs), % XX ACHS, (DME) Lancets (Freestyle Lancets), EA XX ACHS, (DME) Discharge Statement: "Patient was advised to return to the ER or call 911 if any headaches, dizziness, shortness of breath, chest pain, abdominal pain, bleeding, fevers, or worsening of medical condition. Patient was counseled about treatment plan, medications, possible side effects, patientverbalized understanding. All questions were answered to the best of my ability. This discharge took greater then 30 minutes in planning, reviewing documentation, counseling the patient, and discussing with other team members." ASSESSMENT ASSESSMENT Assessment Date of Service: Jun 09, 2025 Billing Provider: SHANE BARRERA MD Common Visit Codes: 06149-PLG/OBS DISCH DAY >30min SHANE BARRERA MD Jun 09, 2025 14:33
[2025-06-09] MEDS: methylPREDNISolone SOD SUCC 40 MG/ML VL IV ONE (16:26)
[2025-06-09 16:30] VITALS: BP 108/73; PULSE 81; RESP 16; TEMP 97.9; O2SAT 91
[2025-06-09] MEDS ORDERED: HYDR-4798 PO (17:17)
== END 2025-06-09 17:43 | disposition home or self-care (01) | DRG 197 ==
LOC: ER 11:34 → OVERFLOW 19:20 → TELE-WESTW 06-07 21:42
PROVIDERS: ADMIT Student in an Organized Health Care Education/Training Program; ATTEND Student in an Organized Health Care Education/Training Program
DX: I82.C11 Acute embolism and thrombosis of right internal jugular vein (principal); L03.221 Cellulitis of neck; E11.65 Type 2 diabetes mellitus with hyperglycemia; I10 Essential (primary) hypertension; F17.210 Nicotine dependence, cigarettes, uncomplicated; L03.113 Cellulitis of right upper limb; Z88.5 Allergy status to narcotic agent; Z88.6 Allergy status to analgesic agent; Z79.01 Long term (current) use of anticoagulants
CPT/HCPCS: 36415; 70491; 80048; 80053; 81001; 82962; 85025; 85610; 85730; 87081; 96374; 99291; 99292; G0378; J1815; J1885; J2405; J2470